=== PATIENT | male | born 1940 | race Caucasian/White ===

== ENCOUNTER 2018-10-24 01:24 | Inpatient (IN) | payer MEDICARE ==
[2018-10-24] MEDS ORDERED: NS 0.9% 1000 ML* 1,000 ML IV ONE (01:32)
[2018-10-24] MEDS ORDERED: Diltiazem IV* 5 MG/ML 5 ML VIAL (for loading dose/IV Push) (25 MG) IV SLOW PU ONE (01:33)
[2018-10-24] MEDS ORDERED: Diltiazem IV VIAL* 125 MG in NS 0.9% 100 ML* 100 ML IVPB ONE (01:33)
[2018-10-24] MEDS ORDERED: Apixaban* 5 MG TAB PO ONE (01:35)
--- NOTE | 2018-10-24 01:44 | ED ---
Complex/Multi-Sys Presentation - HPI Summary HPI Summary: Pt is a 78 y/o male brought in by EMS who presents to the ED c/o generalized weakness. He states that about 6 weeks ago he possibly pulled a muscle while working on a barn. Since then, hes had weakness of his legs. 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 He denies any CP , SOB, abdominal pain, blood stool, or black tarry stool. Pt is currently on Doxycycline for possible Lyme disease, although his test results came back negative. He denies any known hx of AFib. - History Of Current Complaint Time Seen by Provider: 10/24/18 01:25 Hx Obtained From: Patient Onset/Duration: Gradual Onset, Still Present Timing: Constant Aggravating Factor(s): Nothing Alleviating Factor(s): Nothing Associated Signs And Symptoms: Positive: Weakness. Negative: SOB, Chest Pain, Abdominal Pain - Allergies/Home Medications Allergies/Adverse Reactions: Allergies Allergy/AdvReac Type Severity Reaction Status Date / Time fexofenadine [From Makenzie] Allergy Altered Verified 10/24/18 01:34 Mental Status Penicillins Allergy Hives Verified 10/24/18 01:34 Home Medications: Home Medications Unobtainable 10/24/18 [History Confirmed 10/24/18] PMH/Surg Hx/FS Hx/Imm Hx Endocrine/Hematology History: Denies: Hx Diabetes Cardiovascular History: Denies: Hx Atrial Fibrillation Infectious Disease History: No Infectious Disease History: Denies: Traveled Outside the [place] in Last 30 Days - Family History Known Family History: Negative: Cardiac Disease, Diabetes - Social History Alcohol Use: None Hx Substance Use: No Substance Use Type: Reports: None Hx Tobacco Use: No Smoking Status (MU): Never Smoked Tobacco Review of Systems Positive: Other - Weakness Negative: Chest Pain Negative: Shortness Of Breath Negative: Abdominal Pain, Other - hematochezia, tarry stool Positive: Numbness - hands All Other Systems Reviewed And Are Negative: Yes Physical Exam - Summary Physical Exam Summary: Appearance: Well appearing, no pain distress Skin: warm, dry, reflects adequate perfusion Head/face: normal Eyes: EOMI, SHELBIE ENT: mucous membranes moist Neck: supple, non-tender Respiratory: CTA, breath sounds present Cardiovascular: tachycardic and irregular rhythm, pulses symmetrical, bilateral 2+ pitting edema of LE Abdomen: non-tender, soft Bowel Sounds: present Musculoskeletal: normal, strength/ROM intact Neuro: normal, sensory motor intact, A&Ox3 Triage Information Reviewed: Yes Vital Signs On Initial Exam: Initial Vitals Temp Pulse Resp BP Pulse Ox 98.4 F 100 18 161/95 95 10/24/18 01:25 10/24/18 01:25 10/24/18 01:25 10/24/18 01:25 10/24/18 01:25 Vital Signs Reviewed: Yes Diagnostics - Vital Signs Vital Signs Temp Pulse Resp BP Pulse Ox 10/24/18 01:25 98.4 F 100 18 161/95 95 - Laboratory Result Diagrams: 10/24/18 01:42 10/24/18 01:41 Lab Statement: Any lab studies that have been ordered have been reviewed, and results considered in the medical decision making process. - Radiology CXR Radiology Interpretation Completed By: ED Physician Summary of Radiographic Findings: No acute findings. Pending official radiology report. - EKG 01:42 Cardiac Rate: Other Rate - AFib 93 bpm EKG Rhythm: Atrial Fibrillation ST Segment: Normal Summary of EKG Findings: Nl axis, poor R wave progression Complex Multi-Symp Course/Dx Course Of Treatment: Nurse's notes reviewed. Patient is an otherwise healthy gentleman who is been having weakness and tingling in his extremities for about 6 weeks. They're concerned that potential he had Lyme disease. Lyme disease testing recently was negative. He is on doxycycline. He has not had any GI complaints. Today he was found to be in rapid atrial fibrillation with rates from 110-120. He was slowed with diltiazem placed on a drip to control rate. He was also given oral Eliquis and that he has likely been in this rhythm for some time. Discussed the case with the hospitalist who will admit. - Diagnoses Differential Diagnoses/HQI/PQRI: Metabolic Abnormality, Other - Palpitations, NM , pneumonia, sepsis Provider Diagnoses: Rapid atrial fibrillation, Generalized weakness - Physician Notifications Discussed Care Of Patient With: Sierra Shelton Time Discussed With Above Provider: 02:17 Instructed by Provider To: Admit As Inpatient - Critical Care Time Critical Care Time: 30-74 min - CCT is EXCLUSIVE of separately billable procedures. Discharge - Sign-Out/Discharge Documenting (check all that apply): Patient Departure - Admit - Discharge Plan Condition: Fair Disposition: ADMITTED TO [facility] Referrals: Walter Avalos, [Primary Care Provider] - - Billing Disposition and Condition Condition: FAIR Disposition: Admitted to [facility] - Attestation Statements Document Initiated by Christi: Yes Documenting Scribe: Mary Ann Valenzuela Provider For Whom Brentibe is Documenting (Include Credential): Daniel Beasley MD Scribe Attestation: Mary Ann Landeros, scribed for Daniel Beasley MD on 10/24/18 at 0254. Scribe Documentation Reviewed: Yes Provider Attestation: The documentation as recorded by the Mary Ann hernandez accurately reflects the service I personally performed and the decisions made by , Daniel Beasley MD Status of Scribe Document: Viewed
[2018-10-24 01:57] LABS: ABS Basophils 0.1 10^3/ul (0-0.2); ABS Eosinophils 0.2 10^3/ul (0-0.6); ABS Lymphocytes 1.6 10^3/ul (1.0-4.8); ABS Monocytes 0.7 10^3/ul (0-0.8); ABS Neutrophils 2.8 10^3/ul (1.5-7.7); ABS Nucleated RBC 0 10^3/ul; Eosinophil % 3.7 %; Hematocrit 43 % (42-52); Hemoglobin 14.5 g/dl (14.0-18.0); Lymphocyte % 29.6 %; Mean Corpuscular HGB Conc 33 g/dl (31-36); Mean Corpuscular Hemoglobin 30 pg (27-31); Mean Corpuscular Volume 90 fL (80-94); Nucleated Red Blood Cells % 0; Platelet Count 324 10^3/ul (150-450); Red Blood Count 4.85 10^6/ul (4.00-5.40); Red Cell Distribution Width 14 % (10.5-15); White Blood Count 5.3 10^3/ul (3.5-10.8)
[2018-10-24 02:01] LABS: INR 1.06 (0.77-1.02)
[2018-10-24 02:12] LABS: Albumin/Globulin Ratio 1.7 (1-3); BUN/Creatinine Ratio 33.7 (8-20); Calcium 9.6 mg/dL (8.6-10.3); EGFR Non-African American 86.5 (>60); Globulin 2.4 g/dL (2-4); Potassium 3.8 mmol/L (3.5-5.0); Total Bilirubin 0.4 mg/dL (0.2-1.0); Total Protein 6.4 g/dL (6.4-8.9)
[2018-10-24 02:28] LABS: TSH (Thyroid Stimulating Horm) 2.76 mcIU/mL (0.34-5.60)
[2018-10-24] MEDS: Diltiazem TAB* 30 MG PO SCH ×3 (04:23→16:46)
[2018-10-24 05:18] LABS: Urine Appearance Clear; Urine Bacteria Absent (Absent); Urine Bilirubin Negative (Negative); Urine Blood 1+ (Negative); Urine Color Yellow; Urine Glucose Negative (Negative); Urine Ketones Negative (Negative); Urine Nitrite Negative (Negative); Urine Protein Negative (Negative); Urine Red Blood Cell Trace(0-2/hpf) (Absent); Urine Specific Gravity 1.017 (1.010-1.030); Urine Urobilinogen Negative (Negative); Urine White Blood Cell Absent (Absent)
[2018-10-24] MEDS: NS 0.9% 1000 ML* 1,000 ML IV SCH (05:46)
[2018-10-24] MEDS ORDERED: Omeprazole CAP (NF) 20 MG CAP.DR PO SCH (06:00)
[2018-10-24] MEDS: Apixaban* 5 MG TAB PO SCH ×2 (10:37→20:47)
--- NOTE | 2018-10-24 10:38 | PN ---
Subjective Date of Service: 10/24/18 Interval History: Mr. Oconnor is feeling somewhat better today. He is still feeling generally weak , but thinks this is slightly improved. He has multiple complaints. C/o BUE weakness, not able to perform usual tasks such as barn work. Reports occasional shooting neck pain when he moves in certain ways. His PCP thought he had spinal stenosis. Feels as though this pain started when his BUE weakness started. Reports bilateral shoulder pain, particularly when laying on his shoulders. States he had a spine MRI at [place] 2 days ago and has not heard about the results. Has had RLS for 2-3 years, but feels like this has gotten worse in the last week, coinciding with increased BLE weakness. Has needed to use a walker in the last couple days which is not typical for him. Has concerns about his prostate. Has had an enlarged prostate for quite some time, and has PSA checked every 6 months with PCP. Reports frequency, but no dribbling, hesitancy, feelings of incomplete emptying. However, he does think his prostate is causing some constipation. Last BM was yesterday and normal. Denies saddle anesthesia and incontinence. Denies CP, SOB, N/V/D, dizziness. Family History: Unchanged from Admission Social History: Unchanged from Admission Past Medical History: Unchanged from Admission Objective Active Medications: Acetaminophen (Tylenol Tab*) 650 mg PO Q4H PRN FEVER/PAIN Apixaban (Eliquis*) 5 mg PO BID JN Diltiazem HCl (Cardizem Tab*) 30 mg PO Q6HR JN Docusate Sodium (Colace Cap*) 100 mg PO BID PRN CONSTIPATION Sodium Chloride (Ns 0.9% 1000 Ml*) 1,000 mls @ 75 mls/hr IV PER RATE JN Omeprazole (Prilosec Cap*) 20 mg PO DAILY@0600 [facility] Vital Signs - 8 hr 10/24/18 10/24/18 10/24/18 02:33 02:59 03:01 Temperature Pulse Rate 77 59 64 Respiratory 15 20 15 Rate Blood Pressure 121/82 114/82 (mmHg) O2 Sat by Pulse 92 94 94 Oximetry 10/24/18 10/24/18 10/24/18 03:29 04:00 04:01 Temperature Pulse Rate 66 Respiratory 20 20 21 Rate Blood Pressure 123/77 133/85 (mmHg) O2 Sat by Pulse Oximetry 10/24/18 10/24/18 10/24/18 04:29 04:33 05:32 Temperature 98.2 F 97.6 F Pulse Rate 69 65 65 Respiratory 14 18 18 Rate Blood Pressure 130/84 130/84 146/75 (mmHg) O2 Sat by Pulse 97 98 98 Oximetry Oxygen Devices in Use Now: None Appearance: Elderly male laying in bed in NAD Eyes: No Scleral Icterus Ears/Nose/Mouth/Throat: Mucous Membranes Moist Neck: NL Appearance and Movements; NL JVP, Trachea Midline Respiratory: Symmetrical Chest Expansion and Respiratory Effort, Clear to Auscultation Cardiovascular: NL Sounds; No Murmurs; No JVD, RRR Abdominal: NL Sounds; No Tenderness; No Distention Extremities: No Edema Skin: No Rash or Ulcers Neurological: Alert and Oriented x 3, NL Sensation, NL Muscle Strength and Tone - 5/5 in BUE and BLE Lines/Tubes/Other Access: Clean, Dry and Intact Peripheral IV Nutrition: Taking PO's Result Diagrams: 10/24/18 01:42 10/24/18 01:41 Assess/Plan/Problems-Billing Assessment: Mr. Oconnor is a 78 yo M with PMH of HTN, GERD, and BPH; who presented to the ED with c/o generalized weakness and was found to have new onset afib. - Patient Problems (1) Atrial fibrillation Code(s): I48.91 - UNSPECIFIED ATRIAL FIBRILLATION Comment: - New onset with some tachycardia upon arrival, but now rate controlled - Was in afib overnight, but converted to NSR around 0800 this morning - Appreciate Cardiology consult; he will f/u with Dr. Saenz at the [place] office at d/c - Echo shows EF 55-60%, mild to moderate LVH - Continue diltiazem, Eliquis (2) Generalized weakness Code(s): R53.1 - WEAKNESS Comment: - With BUE and BLE weakness, significantly worse in the last week, now requiring a walker - No obvious neurological deficits noted on exam - Suspect this may be in part d/t spinal stenosis - Had MRI at [place] on 10/23; awaiting records - Check MRI brain tomorrow to r/o subacute CVA (3) Hypertension Code(s): I10 - ESSENTIAL (PRIMARY) HYPERTENSION Comment: - Moderate control - Continue amlodipine (4) BPH (benign prostatic hyperplasia) Code(s): N40.0 - BENIGN PROSTATIC HYPERPLASIA WITHOUT LOWER URINRY TRACT SYMP Comment: - Continue tamsulosin (5) Restless legs syndrome (RLS) Comment: - Continue Requip (6) DVT prophylaxis Comment: - Eliquis (7) Full code status Code(s): Z78.9 - OTHER SPECIFIED HEALTH STATUS Comment: Status and Disposition: Observation pending MRI results and PT/OT evals. Anticipate d/c home when medically stable. Attending: Nataly Brioens
[2018-10-24] MEDS: amLODIPine TAB* 5 MG PO SCH (11:41)
[2018-10-24] MEDS: Tamsulosin CAP* 0.4 MG PO SCH (11:41)
[2018-10-24] MEDS: Acetaminophen TAB* 325 MG PO PRN ×2 (11:47→20:47)
--- NOTE | 2018-10-24 14:15 | HP ---
CC: Walter Avalos DO * HISTORY AND PHYSICAL: DATE OF ADMISSION: 10/24/18 PRIMARY CARE PROVIDER: Walter Avalos DO CHIEF COMPLAINT: Generalized weakness. HISTORY OF PRESENT ILLNESS: Mr. Oconnor is a 78-year-old male with a history of hypertension, gastroesophageal reflux disease, who has had problems with shuffling gait and generalized weakness for the past 4 months. The patient stated that in the past month he was either to see his doctor or in the emergency department at [facility] almost on a weekly basis. He was started on physical therapy. His doctor got a CT of his brain, which was unremarkable and an MRI of his cervical spine, which was done yesterday and has not been ready yet. The patient stated that despite all the studies, so far nothing had been found out apart from that the MRI once again the results are pending. He noted that he is so weak that today he had to walk with a walker. Due to that, he came in to our emergency department for evaluation. He was noted to be an atrial fibrillation/flutter with a heart rate in the low 100s. He was placed on Cardizem drip and his heart rate normalized in the 60s. He already feels a little bit stronger. Despite all the other symptoms that seemed mostly neurologic, the patient denies any chest pain or shortness of breath. He stated that he just feels generally weak. 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 The patient is going to be placed on observation with a diagnosis of atrial fibrillation and generalized weakness. PAST MEDICAL HISTORY: 1. Hypertension. 2. Gastroesophageal reflux disease. 3. Dyslipidemia. 4. Right shoulder surgery in 2012. 5. History of chronic sinus problems. 6. History of BPH. MEDICATIONS: Include: 1. Losartan at unknown dose. 2. Amlodipine at unknown dose. 3. Omeprazole 20 mg daily. 4. Ranitidine at unknown dose at night. 5. Fenofibrate at unknown dose. 6. Red Krill Oil supplement and stool softener. The patient unfortunately does not know the doses of his medications and his pharmacy is closed at 3 a.m. in the morning. 7. The patient also was prescribed doxycycline that he used for 3 days for questionable Lyme disease, but he was just told yesterday that his Lyme test was negative by his primary care provider. ALLERGIES: Includes FEXOFENADINE and PENICILLIN. FAMILY HISTORY: Mom at age of 62 secondary to intracranial hemorrhage. Father had a history of hypertension and at the age of 86 secondary to aspiration on his dentures. SOCIAL HISTORY: The patient denies any tobacco, alcohol or drug use. 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 His surrogate he names his son, Luis E Oconnor; his son' s phone number is [phone] or [phone]. REVIEW OF SYSTEMS: Please see history of present illness. In addition to above mentioned, the patient states that the patient's right leg had always been weaker after an accident that he had when he was 17 years old. The patient states that he already feels stronger now than before he came in to the hospital. All the remaining 12 systems were reviewed with the patient, and apart from the ones mentioned above in history of present illness, all the other ones were negative. PHYSICAL EXAMINATION GENERAL: The patient is a very pleasant 78-year-old male, who is in no acute distress. Awake, alert, and oriented x3. VITAL SIGNS: Blood pressure 130/85, heart rate of 64 and irregularly irregular , respiratory rate 20, oxygen saturation 92% on room air, temperature of 98.2. HEENT: Head atraumatic and normocephalic. Eyes: Pupils are equal and reactive to light and accommodation. Oropharynx is clear. Mucosa moist. NECK: Supple. No JVD. No bruits bilaterally. RESPIRATORY: Clear to auscultation bilaterally. CARDIOVASCULAR: Irregularly irregular rhythm. No murmurs. ABDOMEN: Soft, nontender. Bowel sounds present in all 4 quadrants EXTREMITIES: There is no edema. Pulses +2 bilaterally. There is no clubbing or cyanosis. NEUROLOGIC: On neuro evaluation, the patient appears to have slight flattening of left nasolabial fold, but no cranial nerve weakness was intact on evaluation. Speech is clear. Motor strength in the handgrip is decreased in the right hand when comparing with left minimally so. The patient is a right- hand dominant. There was no pronator drift and [id number] is not the symmetric bilaterally. 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 Evaluation of bilateral lower extremities, there is no weakness noted. Babinski's are negative bilaterally. The patient has no shuffling gait. PSYCHIATRIC EVALUATION: Oriented x3 with no evidence of anxiety or depression. DIAGNOSTIC STUDIES/LAB DATA: Laboratory data showed white blood cell count of 5.3, hemoglobin of 14.5, hematocrit of 43, and platelets of 324. Sodium of 137, potassium 8.8, chloride 107, carbon dioxide 23, BUN 29, creatinine of 0.86. Liver function tests are unremarkable with troponin of 0, TSH of 2.7. The patient's EKG showed AFib/flutter with a heart rate of 93 beats per minute. There was no other EKGs available for comparison. Portable chest x-ray reviewed by myself prior to the official radiologist's report, shows atelectasis at right lung base. ASSESSMENT AND PLAN: 1. New onset atrial fibrillation. It is possible that the patient has had atrial fibrillation/flutter for the past couple of months but it went undetected. He appears stronger once his heart rate is better controlled. The patient is going to be placed off Cardizem drip, since at 5 mg, the patient's heart rate is in the 60s. I will place him on Cardizem immediate release p.o. 30 mg every 6 hours. He is going to be placed gentle intravenous hydration. Transthoracic echocardiogram is going to be obtained in the morning, and we will ask top stop attacher to see the patient on the morning for consultation. The patient was already started on Eliquis for anticoagulation. He is not interested in Coumadin, but he would prefer to be on one of the novel anticoagulants that is covered by his insurance. I will ask social work coordinator to investigate further if Xarelto would be less bond than Eliquis for this patient. 2. In regards to the patient's neurologic problems of bilateral arm weakness, right more than left especially in the handgrip as well as shuffling gait, the patient already had an MRI of the cervical spine obtained in [facility] on 10/23/18, and I will try to obtain those results. Due to this, that he does have significant flattening of the left nasolabial fold, I will obtain an MRI of the brain. It is possible that he has suffered with cardioembolic stroke in the recent months. I will ask Physical Therapy to evaluate the patient for ambulation. 3. In regards to the patient's hypertension, he is on losartan and amlodipine at home. For the time being, those medications are going to be held. Cardizem is going to be started as mentioned above. 4. For DVT prophylaxis, the patient is going to be placed on Eliquis. 5. For the patient's gastroesophageal reflux disease, omeprazole is going to be continued. 6. The patient's code status is full and his surrogate is his son as mentioned above. TIME SPENT: Approximately 75 minutes was spent on admission of this patient and more than half that time was spent [id number] with the patient during the interview and physical exam. [id number]/[facility] #: [id number] MTDD
--- NOTE | 2018-10-24 14:27 | ECHO ---
Patient: WALTER MORRISSEY [facility] Rec#: [id number] : 1940 Date: 10/24/2018 Age: 78y Height: 168 cm / 66.1 in Weight: 69 kg / 152.1 lbs Sex: M BSA: 1.78 Room#: 3 Admit Date#: 10/24/2018 Type: Inpatient Referring: Sierra Shelton MD Reading: Terry Weinberg MD Cardiovascular Operating Room Nurse: Claire Gant,LETICIACS,RDMS CC: Walter Avalos DO Transthoracic Echocardiogram Indication: AFIB BP: 146/75 HR: 71 Rhythm: A-Fib Findings History: HTN, HLD, COPD Technical Comments: The study quality is good. Left Ventricle: The left ventricular chamber size is decreased. Mild to moderate concentric left ventricular hypertrophy is observed. Global left ventricular wall motion and contractility are within normal limits. There is normal left ventricular systolic function. The estimated ejection fraction is 55-60%. The assessment of diastolic function is non-diagnostic. Left Atrium: The left atrial chamber size is normal. Right Ventricle: The right ventricular cavity size is normal. Right Atrium: The right atrial cavity size is normal. Aortic Valve: The aortic valve is trileaflet. The aortic valve leaflets are mildly thickened. Systolic excursion of the aortic valve is normal. There is no evidence of aortic regurgitation. There is no evidence of aortic stenosis. Mitral Valve: The mitral valve leaflets appear normal. There is a trace of mitral regurgitation. Tricuspid Valve: The tricuspid valve leaflets are normal. There is trace tricuspid regurgitation. Unable to estimate the right ventricular systolic pressure. Pulmonic Valve: There is no evidence of pulmonic valve thickening. There is no evidence of pulmonic regurgitation. There is no pulmonic stenosis. Pericardium: There is no significant pericardial effusion. Aorta: The aortic root appears normal. There is no dilatation of the aortic arch. Pulmonary Artery: The main pulmonary artery appears normal. Venous: The inferior vena cava appears normal in size. There is a greater than 50% respiratory change in the inferior vena cava dimension. Conclusions The estimated ejection fraction is 55-60%. Global left ventricular wall motion and contractility are within normal limits. The left ventricular chamber size is decreased. Mild to moderate concentric left ventricular hypertrophy is observed. Normal bi-atrial sizes. Functionally benign heart valves. There is no prior echocardiogram available to compare with at this time. Measurements Name Value Normal Range RVIDd (AP) 2D 2.7 cm (0.9 - 2.6) RVDdMajor (2D) 3.1 cm (2.2 - 4.4) RAd ISD 4CH 5 cm (3.4 - 4.9) RA (A4C)W 3.9 cm (2.9 - 4.6) IVSd (2D) 1.5 cm (0.6 - 1) LVPWd (2D) 1.2 cm (0.6 - 1) LVIDd (2D) 3.5 cm (3.6 - 5.4) LVIDs (2D) 2.3 cm - LV FS (2D) 34 % (25 - 45) Aortic Annulus 2 cm (1.4 - 2.6) Ao root diameter (2D) 3.1 cm (2.1 - 3.5) Ascending Ao 3.3 cm (2.1 - 3.4) Aortic arch 2.8 cm (1.8 - 3.4) LA dimension (AP) 2D 4.1 cm (2.3 - 3.8) LAd ISD 4CH 4.9 cm (2.9 - 5.3) LA ISD 4CH W 3.5 cm (2.5 - 4.5) Name Value Normal Range LA ESV BP (A/L) index 30 ml/m2 - Name Value Normal Range MV E-wave Vmax 0.9 m/sec - MV deceleration time 161 msec - LV septal e' Vmax 0.11 m/sec - LV lateral e' Vmax 0.13 m/sec - LV E:e' septal ratio 8 ratio - LV E:e' lateral ratio 7 ratio - Name Value Normal Range AV Vmax 0.9 m/sec - AV peak gradient 3.2 mmHg - LVOT Vmax 0.5 m/sec - LVOT peak gradient 1 mmHg - NIURKA Vmax 0.6 m/sec - Name Value Normal Range RAP 3 mmHg - IVC diameter 1.5 cm - Name Value Normal Range PV Vmax 0.6 m/sec - PV peak gradient 1 mmHg -
[2018-10-24] MEDS: Omeprazole CAP (NF) 20 MG CAP.DR PO SCH (16:15)
--- NOTE | 2018-10-24 18:46 | CONS ---
CC: Dr. Xavier Saenz * CARDIOLOGY CONSULTATION: DATE OF CONSULT: 10/24/18 REASON FOR CARDIOLOGY CONSULTATION: Atrial fibrillation. HISTORY OF PRESENT ILLNESS: The patient has been noticing some palpitations since June of last year. He has more recently noted lower extremity edema as well as fatigue essentially since mid September of 2018. He has also been having numbness in his arms and hands as well as trouble lifting his legs. Yesterday, he was found to have atrial fibrillation in the emergency room on evaluation and was admitted to [facility]. He was admitted on a Cardizem drip, has been transitioned to Cardizem p.o. and has subsequently converted to normal sinus rhythm. He denies chest pain and states his breathing is good. PAST MEDICAL HISTORY: Significant for hypertension, GERD, dyslipidemia, right shoulder surgery in 2012, chronic sinus problems, history of BPH. OUTPATIENT MEDICATIONS: 1. Losartan unknown dose. 2. Norvasc, unknown dose. 3. Omeprazole 20 mg once a day. 4. Ranitidine, unknown dose. 5. Fenofibrate, unknown dose. 6. Red Krill Oil supplement. The patient here was begun was on: 1. Cardizem 30 mg p.o. q.6 hours. 2. Eliquis 5 mg p.o. b.i.d. ALLERGIES TO MEDICATIONS: FEXOFENADINE and PENICILLIN. He denies shrimp, seafood, or dye allergy. FAMILY HISTORY: His father had history of angina and AFib. Of note, the patient is accompanied by his son, sister, [id number], niece and other family members. There is a family history of cancer, stroke, and diabetes. SOCIAL HISTORY: He does not smoke cigarettes or abuse alcohol. No use of illicit drugs. He is and lives with his girlfriend who apparently herself has atrial fibrillation. 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 He does not do additional exercise. REVIEW OF SYSTEMS: He denies personal history of stroke, cancer, vomiting up blood, coughing up blood, bright red blood per rectum, bleeding stomach ulcers, cholelithiasis. He has a history of renal calculi. He denies asthma. 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 He denies pneumonia, tuberculosis , sleep apnea, home oxygen use, diabetes. He does have history of hypertension. He denies prior MS, congestive heart failure, cardiac surgery, cardiac murmurs. He has apparently been noted to have an irregular pulse in the past. He denies psychiatric illnesses, lupus, psoriasis, seizures, Parkinson's disease, myasthenia gravis, thyroid disorders, liver disorders, kidney disorders, claudication symptoms, pulmonary emboli, deep venous thrombosis, peripheral arterial disease. He has been having some peripheral edema recently. He does note GERD symptoms, managed with his GERD therapy. All other review of systems are negative x14 except as described above. PHYSICAL EXAM: Height 5 feet 6 inches, weight 151 pounds, temperature 98.2 degrees Fahrenheit, pulse 63, blood pressure 130/84 to 146/75. On general exam , he is a pleasant, vigorous appearing, elderly man, in no acute distress. HEENT shows the cranium is normocephalic and atraumatic. He has moist mucosal membranes. Neck veins are not distended. There are no carotid bruits. Visible skin warm and perfused. Affect appropriate. He appears oriented. No significant kyphoscoliosis on recumbent back exam. Lungs reveal occasional rhonchi. No wheezes. Cardiac Exam: S1, S2. Regular rate. No significant murmurs, rubs, or gallops. PMI is nondisplaced. Abdomen: Soft and nondistended, appears benign. Extremities: Currently without significant edema. Pulses appear grossly intact. DIAGNOSTIC STUDIES/LAB DATA: The patient completed a 12-lead EKG on 10/24/18 at 1:42 a.m., which showed atrial fibrillation at 93 beats per minute with questionable old anteroseptal MS. Telemetry currently shows that he is in normal sinus rhythm. White blood cell count 5.3, hematocrit 43, platelet count 324. INR of 1.06. Sodium 137, potassium 3.8, chloride 107, bicarbonate 23, BUN 29, creatinine 0.86. ALT 21. Troponin was 0 x3. BNP 32. TSH 2.76. IMPRESSION: Mr. Oconnor is a pleasant 78-year-old gentleman with a history of hypertension with some recent neurological symptoms as well as recent fatigue and edema at least for the past several weeks, perhaps longer found to have paroxysmal atrial fibrillation. He has resumed sinus rhythm. The patient's CHADS2-VASc score is 3. Cardiac lewis, he appears stable at this time.I am making the following recommendations with which the patient is in agreement. RECOMMENDATIONS: 1. Recommend changing his po Cardizem to Cardizem CD formulation 180 mg once a day and continue oral anticoagulation given CHADS2-VAScF score greater than 2. 2. The patient states he lives in [place], [place], and so on my discussion, he would be preferred to follow up in our [facility] office where he may be followed by my partner, Dr. Xavier Saenz. It is reassuring that the patient has normal LV function. 3. Keep potassium 4 or greater, magnesium 2 or greater. 4. Other management as per the hospitalist medicine service including regarding neurological symptoms. The case was discussed with Dr. Sierra Shelton and Ms. Torres, TRAIN ATTENDANT of . Dear Dr. Sierra Shelton and Ms. Torres, many thanks for asking me to participate in the cardiovascular consultative care of Mr. Oconnor. Please do not hesitate to contact me if you have any questions or concerns regarding the patient's cardiovascular consultative care. [id number]/[facility] #: [id number] GERI
[2018-10-24] MEDS: rOPINIRole TAB* 1 MG PO SCH (20:48)
[2018-10-24] MEDS ORDERED: RANITIDINE HCL 300 MG PO SCH (21:00)
[2018-10-25] MEDS: Diltiazem TAB* 30 MG PO SCH ×2 (00:37→05:23)
[2018-10-25] MEDS: NS 0.9% 1000 ML* 1,000 ML IV SCH ×2 (04:22→20:13)
[2018-10-25] MEDS: Acetaminophen TAB* 325 MG PO PRN ×2 (05:27→20:14)
[2018-10-25] MEDS: amLODIPine TAB* 5 MG PO SCH (07:59)
[2018-10-25] MEDS: Omeprazole CAP (NF) 20 MG CAP.DR PO SCH ×2 (07:59→16:49)
[2018-10-25] MEDS: Apixaban* 5 MG TAB PO SCH ×2 (07:59→20:14)
[2018-10-25] MEDS: Tamsulosin CAP* 0.4 MG PO SCH (08:00)
[2018-10-25] MEDS: Diltiazem CD CAP* 180 MG PO SCH (09:42)
[2018-10-25 10:49] LABS: BUN/Creatinine Ratio 23.5 (8-20); Calcium 9.3 mg/dL (8.6-10.3); EGFR Non-African American 92.6 (>60); Magnesium 1.9 mg/dL (1.9-2.7); Potassium 3.8 mmol/L (3.5-5.0)
--- NOTE | 2018-10-25 15:56 | PN ---
Subjective Date of Service: 10/25/18 Interval History: Mr. Oconnor is not feeling any better today. He reports working with PT this morning and having a difficult time ambulating. This is distressing to him as he was quite active until approx 1-2 weeks ago. Weakness is unchanged from yesterday. Family member at the bedside. She reports that she notes a slight left sided facial droop which has been present for at least one week. This coincided with his other symptoms. He denies CP, SOB, N/V/D, dizziness. Family History: Unchanged from Admission Social History: Unchanged from Admission Past Medical History: Unchanged from Admission Objective Active Medications: Acetaminophen (Tylenol Tab*) 650 mg PO Q4H PRN FEVER/PAIN Amlodipine Besylate (Norvasc Tab*) 5 mg PO DAILY JN Apixaban (Eliquis*) 5 mg PO BID JN Diltiazem HCl (Cardizem Cd Cap*) 180 mg PO DAILY JN Docusate Sodium (Colace Cap*) 100 mg PO BID PRN CONSTIPATION Famotidine (Pepcid Tab*) 40 mg PO BEDTIME JN Sodium Chloride (Ns 0.9% 1000 Ml*) 1,000 mls @ 75 mls/hr IV PER RATE [place] Omeprazole (Prilosec Cap*) 20 mg PO BID AC JN Ropinirole HCl (Requip Tab*) 1 mg PO BEDTIME JN Tamsulosin HCl (Flomax Cap*) 0.8 mg PO DAILY JN Vital Signs - 8 hr 10/25/18 10/25/18 12:31 15:25 Temperature 98.5 F 97.7 F Pulse Rate 65 79 Respiratory 16 16 Rate Blood Pressure 135/73 129/88 (mmHg) O2 Sat by Pulse 95 97 Oximetry Oxygen Devices in Use Now: None Appearance: Elderly male sitting in chair in NAD Eyes: No Scleral Icterus Ears/Nose/Mouth/Throat: Mucous Membranes Moist Neck: NL Appearance and Movements; NL JVP, Trachea Midline Respiratory: Symmetrical Chest Expansion and Respiratory Effort, Clear to Auscultation Cardiovascular: NL Sounds; No Murmurs; No JVD, RRR Abdominal: NL Sounds; No Tenderness; No Distention Extremities: No Edema Skin: No Rash or Ulcers Neurological: Alert and Oriented x 3, NL Muscle Strength and Tone, - - Questionable left-sided facial droop Lines/Tubes/Other Access: Clean, Dry and Intact Peripheral IV Nutrition: Taking PO's Result Diagrams: 10/24/18 01:42 10/25/18 10:03 Assess/Plan/Problems-Billing Assessment: Mr. Oconnor is a 78 yo M with PMH of HTN, GERD, and BPH; who presented to the ED with c/o generalized weakness and was found to have new onset afib. - Patient Problems (1) Atrial fibrillation Code(s): I48.91 - UNSPECIFIED ATRIAL FIBRILLATION Comment: - New onset with some tachycardia upon arrival, but now rate controlled - Self-converted to NSR yesterday - Appreciate Cardiology consult; he will f/u with Dr. Saenz at the [place] office at d/c - Echo shows EF 55-60%, mild to moderate LVH - Continue diltiazem, Eliquis (2) Generalized weakness Code(s): R53.1 - WEAKNESS Comment: - With BUE and BLE weakness, significantly worse in the last week, now requiring a walker - No obvious neurological deficits noted on exam, but there is a questionable left-sided facial droop which appears unchanged per family - Differentials include CVA and cord compression/nerve impingement, but there is no evidence of cauda equina - Had lumbar spine MRI at [place] on 10/23 which showed L5-S1 right-sided disc protrusion and mild to moderate DJD - Pending MRI brain to r/o subacute CVA and cervical spine MRI d/t BUE weakness - Spoke with both Neurosurgery and Neurology; plan will be to consult either or both depending on MRI results (3) Hypertension Code(s): I10 - ESSENTIAL (PRIMARY) HYPERTENSION Comment: - Moderate control, 130-160s - Continue amlodipine (4) BPH (benign prostatic hyperplasia) Code(s): N40.0 - BENIGN PROSTATIC HYPERPLASIA WITHOUT LOWER URINRY TRACT SYMP Comment: - Continue tamsulosin (5) Restless legs syndrome (RLS) Comment: - Continue Requip (6) DVT prophylaxis Comment: - Eliquis (7) Full code status Code(s): Z78.9 - OTHER SPECIFIED HEALTH STATUS Comment: Status and Disposition: Observation pending MRI results. Anticipate d/c home when medically stable. Attending: Kayla Cain
[2018-10-25] MEDS: rOPINIRole TAB* 1 MG PO SCH ×2 (18:37→20:20)
[2018-10-25] MEDS: Famotidine TAB* 20 MG PO SCH (20:14)
[2018-10-26] MEDS: Benzocaine/Menthol LOZ* 1 LOZENGE PO PRN ×2 (03:55→20:17)
[2018-10-26] MEDS: Potassium Chlor TAB* 10 MEQ TAB.ER PO SCH (08:01)
[2018-10-26] MEDS: Apixaban* 5 MG TAB PO SCH ×2 (08:01→20:16)
[2018-10-26] MEDS: Omeprazole CAP (NF) 20 MG CAP.DR PO SCH ×2 (08:01→16:43)
[2018-10-26] MEDS: Magnesium Oxide TAB* 400 MG PO SCH (08:02)
[2018-10-26] MEDS: Diltiazem CD CAP* 180 MG PO SCH (08:02)
[2018-10-26] MEDS: Tamsulosin CAP* 0.4 MG PO SCH (08:02)
[2018-10-26] MEDS: amLODIPine TAB* 5 MG PO SCH (08:02)
[2018-10-26] MEDS: NS 0.9% 1000 ML* 1,000 ML IV SCH (08:06)
[2018-10-26] MEDS: Acetaminophen TAB* 325 MG PO PRN ×2 (08:07→17:00)
--- NOTE | 2018-10-26 08:41 | CONSULT ---
Consult Consult: Neurosurgery Consult Date of Admission: 10/24/18 Date of Consult: 10/26/18 Reason for Consult: Cervical stenosis Referring Provider: Deepika Torres NP PCP: Dr. Avalos HPI:This is a 78 year old male with past medical history significant for HTN, GERD and Atrial fibrillation diagnosed this admission, who presented to [facility] with complaint of bilateral lower extremity swelling and burning sensation in addition to generalized, progressive upper and lower extremity weakness. He is able to provide detailed history. 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 He developed upper back, neck and shoulders soreness with this activity and frequently needed to take breaks. He noticed approximately 6 weeks ago that he began to develop bilateral hand and jewelry enameler strength weakness in addition to generalized lower extremity weakness with ambulation. He states that he was unable to hold objects and felt like there was oil on his hands because he kept dropping things. He was unable to make a fist and reports bilateral hand numbness over the past 6 weeks, right equal to left. He describes first noticing that his feet were dragging when he would try to walk quickly but if he focused on his gait, he was able to prevent the shuffling. The lower extremity weakness progressed. He presented to his PCP who obtained cervical spine xrays and referred him for physical therapy. He participated in PT twice. The first time, he needed a cane to ambulate, the second time he required a walker, and within the next couple of days he was unable to ambulate well even with assistance of a walker. Occasionally he experiences an electric shock sensation originating in the neck with neck movements. On , he had guests over and by the time they went home around midnight, he realized his lower extremities at the feet and ankles were swelling and burning. He decided to present to [facility] for evaluation. He was diagnosed with atrial fibrillation and was admitted for further work up of the weakness. He denies pain in the upper and lower extremities. MRI of the cervical spine was obtained on 10/25/17 and was reviewed today. Denies bowel and bladder dysfunction. Denies recent illness, trauma, falls and infection. Denies vision changes, blurred vision, changes in speech, difficulty swallowing, dizziness, nausea, chest pain, difficulty breathing and headache. Past Medical History: 1. HTN 2. GERD 3. Atrial fibrillation 4. Dyslipidemia 5. BPH 6. Restless leg syndrome Past Surgical History: 1. Right shoulder surgery 2013 [place] Medications: Acetaminophen (Tylenol Tab*) 650 mg PO Q4H PRN PRN Reason: FEVER/PAIN Last Admin: 10/26/18 08:07 Dose: 650 mg Amlodipine Besylate (Norvasc Tab*) 5 mg PO DAILY [facility] Last Admin: 10/26/18 08:02 Dose: 5 mg Apixaban (Eliquis*) 5 mg PO BID [facility] Last Admin: 10/26/18 08:01 Dose: 5 mg Diltiazem HCl (Cardizem Cd Cap*) 180 mg PO DAILY [facility] Last Admin: 10/26/18 08:02 Dose: 180 mg Docusate Sodium (Colace Cap*) 100 mg PO BID PRN PRN Reason: CONSTIPATION Famotidine (Pepcid Tab*) 40 mg PO BEDTIME [facility] Last Admin: 10/25/18 20:14 Dose: 40 mg Sodium Chloride (Ns 0.9% 1000 Ml*) 1,000 mls @ 75 mls/hr IV PER RATE [facility] Last Admin: 10/26/18 08:06 Dose: 75 mls/hr Magnesium Oxide (Magox 400 Tab*) 400 mg PO DAILY [facility] Last Admin: 10/26/18 08:02 Dose: 400 mg Omeprazole (Prilosec Cap*) 20 mg PO BID AC [facility] Last Admin: 10/26/18 08:01 Dose: 20 mg Potassium Chloride (Klor Con Er Tab*) 10 meq PO DAILY [facility] Last Admin: 10/26/18 08:01 Dose: 10 meq Ropinirole HCl (Requip Tab*) 1 mg PO BEDTIME [facility] Last Admin: 10/25/18 20:20 Dose: Not Given Tamsulosin HCl (Flomax Cap*) 0.8 mg PO DAILY [facility] Last Admin: 10/26/18 08:02 Dose: 0.8 mg Throat Lozenges (Chloraseptic Karolina*) 1 karolina PO Q6H PRN PRN Reason: SORE THROAT Last Admin: 10/26/18 03:55 Dose: 1 karolina Allergies: fexofenadine [From Makenzie] Allergy (Verified 10/24/18 01:34) Altered Mental Status Penicillins Allergy (Verified 10/24/18 01:34) Hives Social History: This patient lives at home with his significant other. 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 Denies tobacco and alcohol use. ROS: Full ROS complete, pertinent findings stated in HPI and all others negative. Physical Exam: Vital Signs: Temp Pulse Resp BP Pulse Ox 97.2 F 69 22 147/90 100 10/26/18 07:33 10/26/18 07:33 10/26/18 07:33 10/26/18 07:33 10/26/18 07:33 General: Elderly male appears well, alert and sitting up in bed, NAD. HEENT: Head is normocephalic and atraumatic. PERRL, EOMI, sclerae anicteric. Moist mucus membranes. Gross hearing intact although slightly decreased. Neck: Supple and symmetric, nontender to palpation. CV: Radial and pedal pulses 2+ and equal, regular. Lungs: Breathing is nonlabored and lungs are clear. Abdomen: The abdomen is soft, nontender. NABS Neuro: Speech is clear. Answers questions appropriately. Sensation intact throughout, slightly diminished in left compared to right. Strength 5/5 throughout, mild jewelry enameler strength weakness and fine motor dexterity. DTR biceps, brachioradialis, triceps, patellar and achilles 3+ bilaterally. Hoffmans positive bilaterally. No ankle clonus. SLR negative bilaterally. Coordination intact. CN II-XII intact. No tremor. Extremities: Arthritis bilateral hands, bilateral lower extremities without edema. Imagin. MRI cervical spine on 10/25/17 shows multilevel degenerative disc disease and spondylosis, severe central canal stenosis C3-4 with cord compression and cord signal change. Assessment and Plan: This patient presents to [facility] for evaluation of generalized, progressive upper and lower extremity weakness, gait instability and lower extremity swelling. He was found to have atrial fibrillation and was started on medication for this. MRI of the cervical spine was obtained showing degenerative changes and severe stenosis C3-4 with cord compression and signal change. 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 MRI results were discussed with the patient and treatment options including the potential benefit of surgery were briefly discussed. He is interested in further discussion of surgical intervention with Dr. Pickett and his family members. This case was reviewed with Dr. Pickett and Precious Anna NP. Additional imaging with flexion/extension xrays and CT cervical spine will be obtained for further evaluation. The patient will need to be cleared for cervical spine surgery by hospital medicine. Plan for surgery next week, Dr. Pickett will formulate surgical plan with the patient and his family.
--- NOTE | 2018-10-26 17:48 | PN ---
Subjective Date of Service: 10/26/18 Interval History: Patient seen and examined. States he feels like his left UE weakness is the same as well as left light lip droop. Denies chest pain, no palpitations, no SOB , no urinary complaints. Family History: Unchanged from Admission Social History: Unchanged from Admission Past Medical History: Unchanged from Admission Objective Active Medications: Acetaminophen (Tylenol Tab*) 650 mg PO Q4H PRN PRN Reason: FEVER/PAIN Last Admin: 10/26/18 17:00 Dose: 650 mg Amlodipine Besylate (Norvasc Tab*) 5 mg PO DAILY [facility] Last Admin: 10/26/18 08:02 Dose: 5 mg Apixaban (Eliquis*) 5 mg PO BID [facility] Last Admin: 10/26/18 08:01 Dose: 5 mg Diltiazem HCl (Cardizem Cd Cap*) 180 mg PO DAILY [facility] Last Admin: 10/26/18 08:02 Dose: 180 mg Docusate Sodium (Colace Cap*) 100 mg PO BID PRN PRN Reason: CONSTIPATION Famotidine (Pepcid Tab*) 40 mg PO BEDTIME [facility] Last Admin: 10/25/18 20:14 Dose: 40 mg Sodium Chloride (Ns 0.9% 1000 Ml*) 1,000 mls @ 75 mls/hr IV PER RATE [facility] Last Admin: 10/26/18 08:06 Dose: 75 mls/hr Magnesium Oxide (Magox 400 Tab*) 400 mg PO DAILY [facility] Last Admin: 10/26/18 08:02 Dose: 400 mg Omeprazole (Prilosec Cap*) 20 mg PO BID AC [facility] Last Admin: 10/26/18 16:43 Dose: 20 mg Potassium Chloride (Klor Con Er Tab*) 10 meq PO DAILY [facility] Last Admin: 10/26/18 08:01 Dose: 10 meq Ropinirole HCl (Requip Tab*) 1 mg PO BEDTIME [facility] Last Admin: 10/25/18 20:20 Dose: Not Given Tamsulosin HCl (Flomax Cap*) 0.8 mg PO DAILY [facility] Last Admin: 10/26/18 08:02 Dose: 0.8 mg Throat Lozenges (Chloraseptic Karolina*) 1 karolina PO Q6H PRN PRN Reason: SORE THROAT Last Admin: 10/26/18 03:55 Dose: 1 karolina Vital Signs - 8 hr 10/26/18 10/26/18 11:13 15:46 Temperature 98.4 F 97.8 F Pulse Rate 77 72 Respiratory 18 16 Rate Blood Pressure 156/66 133/71 (mmHg) O2 Sat by Pulse 95 96 Oximetry Oxygen Devices in Use Now: None Appearance: alert, NAD Eyes: No Scleral Icterus, PERRLA Ears/Nose/Mouth/Throat: Mucous Membranes Moist, - - slight droop left upper lip Neck: NL Appearance and Movements; NL JVP, Trachea Midline Respiratory: Symmetrical Chest Expansion and Respiratory Effort, Clear to Auscultation Cardiovascular: NL Sounds; No Murmurs; No JVD, RRR, No Edema Abdominal: NL Sounds; No Tenderness; No Distention Extremities: No Edema, No Clubbing, Cyanosis Skin: No Rash or Ulcers, No Nodules or Sclerosis Neurological: Alert and Oriented x 3, - - decreased sensation LUE, 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 COMPARISON: None TECHNIQUE: Coronal T2, sagittal T1, inversion recovery, T2, and axial T1, T2, and gradient echo images were acquired. FINDINGS: The sella and craniocervical junction appear unremarkable. On T2-weighted imaging there is mildly increased signal of the spinal cord at C3 /C4 corresponding to the patient's most severe focus of high-grade central canal stenosis. The cervical vertebrae are normally aligned. The atlantodental interval is normal. Axial view images: Less otherwise specified below there is no significant central canal stenosis or neural foraminal stenosis. C2-C3: There is no significant central canal or neural foraminal stenoses. C3-C4: There is broad-based disc protrusion and thickening of the ligamentum flavum combining with facet arthropathy and uncovertebral hypertrophy to cause high- grade stenosis and severe bilateral neural foraminal stenosis. C4-C5: Mild broad-based disc protrusion abuts the ventral thecal sac and combines with facet arthropathy to cause mild bilateral neural foraminal stenosis. C5-C6: Broad-based disc protrusion eccentric towards the patient's right abuts the ventral spinal cord and combines with facet arthropathy and uncovertebral hypertrophy to cause moderate right and mild left neural foraminal stenosis. C6-C7: Broad-based disc protrusion abutting the ventral thecal sac combines with facet arthropathy and uncovertebral hypertrophy to cause mild bilateral neural foraminal stenosis. C7-T1: Broad-based disc protrusion eccentric towards the left of midline slightly distorts the ventral thecal sac and combines with facet arthropathy and uncovertebral hypertrophy to cause mild to moderate left neural foraminal stenosis. IMPRESSION:Multilevel degenerative disc disease causing various degrees of central canal or neural foraminal stenoses. The most severe level is C3/C4 where there is high -grade stenosis with subsequent increased fluid signal of the spinal cord. These findings were reported over the telephone to Deepika Torres NP at 1646 hours on October 25, 2018. Patient Name: GERTRUDE MORRISSEY Medical Record#: [id number] Ordering Physician: Sierra Shelton MD Acct.#: [id number] : 1940 Age: 78 Sex: M Location: [address] [place] [address] MEDICAL/TELEMETRY Exam Date: 10/25/18 0800 ADM Status: ADM Clarita Order Information: MRI BRAIN W/O Accession Number: [id number] CPT: 12358 HISTORY: Bilateral upper extremity weakness, intermittent neck pain, generalized weakness and a shuffling gait x4 months COMPARISONS: None TECHNIQUE: The following sequences were obtained of the head: Sagittal T1- weighted images, axial T2-weighted images, axial FLAIR images, axial susceptibility weighted images, axial T1-weighted images. Additionally, axial diffusion-weighted images were obtained with calculated apparent diffusion coefficients.. FINDINGS: HEMORRHAGE/INFARCT: There is no hemorrhage or acute infarct. MASSES/SHIFT: There is no mass or shift. EXTRA-AXIAL SPACES/MENINGES: There are no extra-axial fluid collections. SULCI AND VENTRICLES: The sulci and ventricles are normal in size and position for the patient's stated age. CEREBRUM: On T2 FLAIR images there is scattered periventricular and subcortical white matter bright signal that is fairly symmetrically dispersed in the bilateral hemispheres. There are no corresponding lesion seen on the T1-weighted images or on diffusion -weighted imaging. There is no large mass, mass effect or midline shift. BRAINSTEM: There are no focal parenchymal abnormalities. CEREBELLUM: There are no focal parenchymal abnormalities. The cerebellar tonsils are normal in size and position. SELLA: The sella is normal. PINEAL: The pineal region is clear. CP ANGLE/TEMPORAL BONES: The labyrinthine structures are grossly normal. VESSELS: Normal flow-voids are noted within the visualized vertebral vasculature. DIFFUSION ABNORMALITIES: There are no diffusion abnormalities. PARANASAL SINUSES/MASTOIDS: The paranasal sinuses are clear. ORBITS: The orbits are unremarkable. BONES AND SOFT TISSUE: No bone or soft tissue abnormalities are noted. IMPRESSION: SCATTERED T2 BRIGHT PERIVENTRICULAR AND SUBCORTICAL WHITE MATTER FOCI WITH THE LARGEST FOCUS OF UPTAKE AT THE LEFT PARIETAL LOBE MEASURING 1.3 CM. THERE IS NO CORRESPONDING BRIGHT SIGNAL ON DIFFUSION-WEIGHTED IMAGING TO INDICATE ACUTE FOCAL OR TERRITORIAL INFARCTION. MOST COMMONLY THIS APPEARANCE IS THE CONSEQUENCE OF CHRONIC MICROVASCULAR DISEASE. IF THERE IS CLINICAL SUSPICION FOR ACUTE DEMYELINATING DISEASE THEN FURTHER CHARACTERIZATION CAN BE MADE WITH CONTRAST-ENHANCED MRI OF THE BRAIN. <Electronically signed by Dylan Thomas MD in OV> 10/25/18 1641 This report is only to be considered final once signed by the Provider(s) as displayed in the "<Electronically Signed by >" field (s). Absence of a signature indicates the report is in a draft status and still needs to be finalized. In the event this document was created by someone other than the signing Provider, the individual initiating the document will be listed in the "Entered by:" or "Dictated by:" [email or web address]. 1 of 2 Assess/Plan/Problems-Billing Assessment: This is a 78 yo M with PMH of HTN, GERD, and BPH; who presented to the ED with c /o generalized weakness and was found to have new onset afib. - Patient Problems (1) Cervical myelopathy Code(s): G95.9 - DISEASE OF SPINAL CORD, UNSPECIFIED SNOMED Code(s): 678358720 Comment: - Weakness likely 2/2 high grade cervical stenosis as noted in imaging above - Neurosurgery consulting, plan is likely surgical intervention eituesday or Tuesday if he is medically cleared, patient would need to remain inpatient given severity of myelopathy - Appreciate any further recs from neurosurgery, no indication for steroids at this time - Concern that changes on MRI may represent demyelinating process, does not appear to have had acute infarct. Will consult neurology to evaluate MRI in anticipation of optimazing patient for surgery (2) Atrial fibrillation Code(s): I48.91 - UNSPECIFIED ATRIAL FIBRILLATION SNOMED Code(s): 79073425 Comment: - New onset with some tachycardia upon arrival, but now rate controlled with spontaneous conversion to NSR 10/24/18 - Appreciate Cardiology consult; he will f/u with Dr. Saenz at the [place] office at d/c - Echo shows EF 55-60%, mild to moderate LVH - Continue diltiazem, Eliquis - Will hold eliquis starting tomorrow in antcipation of surgery (3) BPH (benign prostatic hyperplasia) Code(s): N40.0 - BENIGN PROSTATIC HYPERPLASIA WITHOUT LOWER URINRY TRACT SYMP SNOMED Code(s): 856618679 Comment: - Continue tamsulosin (4) Hypertension Current Visit: Yes Status: Acute Code(s): I10 - ESSENTIAL (PRIMARY) HYPERTENSION SNOMED Code(s): 46754491 Comment: - Moderate control, 130-160s - Continue amlodipine (5) Restless legs syndrome (RLS) Comment: - Continue Requip 2 hours before bedtime (6) DVT prophylaxis Code(s): KRJ3941 - SNOMED Code(s): 710096549 Comment: - Currenlty on Eliquis, will hold and change to HSQ tomorrow (7) Full code status Code(s): Z78.9 - OTHER SPECIFIED HEALTH STATUS SNOMED Code(s): 582984229 Comment: Status and Disposition: Inpatient pending surgical recommendations.
[2018-10-26] MEDS: rOPINIRole TAB* 1 MG PO SCH ×2 (18:28→20:50)
[2018-10-26] MEDS: Famotidine TAB* 20 MG PO SCH (20:16)
[2018-10-26] MEDS: traMADol TAB* 50 MG PO PRN (20:48)
[2018-10-26] MEDS: Melatonin 3 MG TAB PO PRN (20:48)
[2018-10-27] MEDS: NS 0.9% 1000 ML* 1,000 ML IV SCH ×2 (01:15→23:24)
[2018-10-27] MEDS: Magnesium Oxide TAB* 400 MG PO SCH (08:36)
[2018-10-27] MEDS: Omeprazole CAP (NF) 20 MG CAP.DR PO SCH ×2 (08:36→17:03)
[2018-10-27] MEDS: Heparin VIAL(*) 5000 UNITS/ML VIAL (FIVE THOUSAND) SUBCUT SCH ×3 (08:36→21:40)
[2018-10-27] MEDS: Diltiazem CD CAP* 180 MG PO SCH (08:36)
[2018-10-27] MEDS: Potassium Chlor TAB* 10 MEQ TAB.ER PO SCH (08:36)
[2018-10-27] MEDS: Tamsulosin CAP* 0.4 MG PO SCH (08:36)
[2018-10-27] MEDS: amLODIPine TAB* 5 MG PO SCH (08:36)
--- NOTE | 2018-10-27 17:36 | PN ---
Subjective Date of Service: 10/27/18 Interval History: Patient seen and examined. States he is feeling well, his upper extremity weakness is unchanged and his RLS is "acting up" primarily on the RLE. Otherwise denies SOB, no chest pain, no n/v, no fevers or chills. Family History: Unchanged from Admission Social History: Unchanged from Admission Past Medical History: Unchanged from Admission Objective Active Medications: Acetaminophen (Tylenol Tab*) 650 mg PO Q4H PRN PRN Reason: FEVER/PAIN Last Admin: 10/26/18 17:00 Dose: 650 mg Amlodipine Besylate (Norvasc Tab*) 5 mg PO DAILY [facility] Last Admin: 10/27/18 08:36 Dose: 5 mg Diltiazem HCl (Cardizem Cd Cap*) 180 mg PO DAILY [facility] Last Admin: 10/27/18 08:36 Dose: 180 mg Docusate Sodium (Colace Cap*) 100 mg PO BID PRN PRN Reason: CONSTIPATION Famotidine (Pepcid Tab*) 40 mg PO BEDTIME [facility] Last Admin: 10/26/18 20:16 Dose: 40 mg Heparin Sodium (Porcine) (Heparin Vial(*)) 5,000 units SUBCUT Q8HR [facility] Last Admin: 10/27/18 13:32 Dose: 5,000 units Sodium Chloride (Ns 0.9% 1000 Ml*) 1,000 mls @ 75 mls/hr IV PER RATE [facility] Last Admin: 10/27/18 01:15 Dose: 75 mls/hr Magnesium Oxide (Magox 400 Tab*) 400 mg PO DAILY [facility] Last Admin: 10/27/18 08:36 Dose: 400 mg Melatonin (Melatonin) 3 mg PO BEDTIME PRN; Protocol PRN Reason: SLEEP Last Admin: 10/26/18 20:48 Dose: 3 mg Omeprazole (Prilosec Cap*) 20 mg PO BID AC [facility] Last Admin: 10/27/18 17:03 Dose: 20 mg Potassium Chloride (Klor Con Er Tab*) 10 meq PO DAILY [facility] Last Admin: 10/27/18 08:36 Dose: 10 meq Ropinirole HCl (Requip Tab*) 1 mg PO BEDTIME [facility] Last Admin: 10/26/18 20:50 Dose: Not Given Tamsulosin HCl (Flomax Cap*) 0.8 mg PO DAILY [facility] Last Admin: 10/27/18 08:36 Dose: 0.8 mg Throat Lozenges (Chloraseptic Karolina*) 1 karolina PO Q6H PRN PRN Reason: SORE THROAT Last Admin: 10/26/18 20:17 Dose: 1 karolina Tramadol HCl (Ultram*) 50 mg PO Q8H PRN PRN Reason: PAIN Last Admin: 10/26/18 20:48 Dose: 50 mg Vital Signs - 8 hr 10/27/18 10/27/18 11:12 15:33 Temperature 98.6 F 97.0 F Pulse Rate 80 65 Respiratory 16 18 Rate Blood Pressure 127/61 143/68 (mmHg) O2 Sat by Pulse 96 97 Oximetry Oxygen Devices in Use Now: None Appearance: alert, NAD Eyes: No Scleral Icterus, PERRLA Ears/Nose/Mouth/Throat: NL Teeth, Lips, Gums, Mucous Membranes Moist Neck: NL Appearance and Movements; NL JVP, Trachea Midline Respiratory: Symmetrical Chest Expansion and Respiratory Effort, Clear to Auscultation Cardiovascular: NL Sounds; No Murmurs; No JVD, RRR, No Edema Abdominal: NL Sounds; No Tenderness; No Distention Extremities: No Edema, No Clubbing, Cyanosis Skin: No Rash or Ulcers, No Nodules or Sclerosis Neurological: Alert and Oriented x 3, NL Gait, - - diminished sensation bilaterally with L>R, tremors to RLE periodically Nutrition: Taking PO's Result Diagrams: 10/24/18 01:42 10/25/18 10:03 Diagnostic Imaging: Patient Name: GERTRUDE MORRISSEY Medical Record#: [id number] Ordering Physician: Deepika Torres NP Acct.#: [id number] : 1940 Age: 78 Sex: M Location: [address] [place] [address]/TELEMETRY Exam Date: 10/25/18939 ADM Status: ADM Clarita Order Information: MRI CERVICAL SPINE WO Accession Number: [id number] CPT: 86975 INDICATION: Upper extremity weakness with intermittent neck pain. COMPARISON: None TECHNIQUE: Coronal T2, sagittal T1, inversion recovery, T2, and axial T1, T2, and gradient echo images were acquired. FINDINGS: The sella and craniocervical junction appear unremarkable. On T2-weighted imaging there is mildly increased signal of the spinal cord at C3 /C4 corresponding to the patient's most severe focus of high-grade central canal stenosis. The cervical vertebrae are normally aligned. The atlantodental interval is normal. Axial view images: Less otherwise specified below there is no significant central canal stenosis or neural foraminal stenosis. C2-C3: There is no significant central canal or neural foraminal stenoses. C3-C4: There is broad-based disc protrusion and thickening of the ligamentum flavum combining with facet arthropathy and uncovertebral hypertrophy to cause high- grade stenosis and severe bilateral neural foraminal stenosis. C4-C5: Mild broad-based disc protrusion abuts the ventral thecal sac and combines with facet arthropathy to cause mild bilateral neural foraminal stenosis. C5-C6: Broad-based disc protrusion eccentric towards the patient's right abuts the ventral spinal cord and combines with facet arthropathy and uncovertebral hypertrophy to cause moderate right and mild left neural foraminal stenosis. C6-C7: Broad-based disc protrusion abutting the ventral thecal sac combines with facet arthropathy and uncovertebral hypertrophy to cause mild bilateral neural foraminal stenosis. C7-T1: Broad-based disc protrusion eccentric towards the left of midline slightly distorts the ventral thecal sac and combines with facet arthropathy and uncovertebral hypertrophy to cause mild to moderate left neural foraminal stenosis. IMPRESSION:Multilevel degenerative disc disease causing various degrees of central canal or neural foraminal stenoses. The most severe level is C3/C4 where there is high -grade stenosis with subsequent increased fluid signal of the spinal cord. These findings were reported over the telephone to Deepika Torres NP at 1646 hours on October 25, 2018. Patient Name: GERTRUDE MORRISSEY Medical Record#: [id number] Ordering Physician: Sierra Shelton MD Acct.#: [id number] : 1940 Age: 78 Sex: M Location: [address] [place] [address]/TELEMETRY Exam Date: 10/25/18 08 ADM Status: ADM Clarita Order Information: MRI BRAIN W/O Accession Number: [id number] CPT: 59520 HISTORY: Bilateral upper extremity weakness, intermittent neck pain, generalized weakness and a shuffling gait x4 months COMPARISONS: None TECHNIQUE: The following sequences were obtained of the head: Sagittal T1- weighted images, axial T2-weighted images, axial FLAIR images, axial susceptibility weighted images, axial T1-weighted images. Additionally, axial diffusion-weighted images were obtained with calculated apparent diffusion coefficients.. FINDINGS: HEMORRHAGE/INFARCT: There is no hemorrhage or acute infarct. MASSES/SHIFT: There is no mass or shift. EXTRA-AXIAL SPACES/MENINGES: There are no extra-axial fluid collections. SULCI AND VENTRICLES: The sulci and ventricles are normal in size and position for the patient's stated age. CEREBRUM: On T2 FLAIR images there is scattered periventricular and subcortical white matter bright signal that is fairly symmetrically dispersed in the bilateral hemispheres. There are no corresponding lesion seen on the T1-weighted images or on diffusion -weighted imaging. There is no large mass, mass effect or midline shift. BRAINSTEM: There are no focal parenchymal abnormalities. CEREBELLUM: There are no focal parenchymal abnormalities. The cerebellar tonsils are normal in size and position. SELLA: The sella is normal. PINEAL: The pineal region is clear. CP ANGLE/TEMPORAL BONES: The labyrinthine structures are grossly normal. VESSELS: Normal flow-voids are noted within the visualized vertebral vasculature. DIFFUSION ABNORMALITIES: There are no diffusion abnormalities. PARANASAL SINUSES/MASTOIDS: The paranasal sinuses are clear. ORBITS: The orbits are unremarkable. BONES AND SOFT TISSUE: No bone or soft tissue abnormalities are noted. IMPRESSION: SCATTERED T2 BRIGHT PERIVENTRICULAR AND SUBCORTICAL WHITE MATTER FOCI WITH THE LARGEST FOCUS OF UPTAKE AT THE LEFT PARIETAL LOBE MEASURING 1.3 CM. THERE IS NO CORRESPONDING BRIGHT SIGNAL ON DIFFUSION-WEIGHTED IMAGING TO INDICATE ACUTE FOCAL OR TERRITORIAL INFARCTION. MOST COMMONLY THIS APPEARANCE IS THE CONSEQUENCE OF CHRONIC MICROVASCULAR DISEASE. IF THERE IS CLINICAL SUSPICION FOR ACUTE DEMYELINATING DISEASE THEN FURTHER CHARACTERIZATION CAN BE MADE WITH CONTRAST-ENHANCED MRI OF THE BRAIN. <Electronically signed by Dylan Thomas MD in OV> 10/25/18 6621 This report is only to be considered final once signed by the Provider(s) as displayed in the "<Electronically Signed by >" field (s). Absence of a signature indicates the report is in a draft status and still needs to be finalized. In the event this document was created by someone other than the signing Provider, the individual initiating the document will be listed in the "Entered by:" or "Dictated by:" [email or web address]. 1 of 2 Assess/Plan/Problems-Billing Assessment: This is a 78 yo M with PMH of HTN, GERD, and BPH; who presented to the ED with c /o generalized weakness and was found to have new onset afib and high grade cervical myelopathy.. - Patient Problems (1) Cervical myelopathy Code(s): G95.9 - DISEASE OF SPINAL CORD, UNSPECIFIED SNOMED Code(s): 854419194 Comment: - Weakness likely 2/2 high grade cervical stenosis as noted in imaging above - Neurosurgery consulting, plan is for surgical decompression next week; discussed with Dr. Pickett, he is trying to get him into the OR on . - Cervical collar for comfort - No indication for steroids at this time - Concern that changes on MRI brain may represent demyelinating process per radiology report, does not appear to have had acute infarct. Will discuss with neurology, may represent outpatient follow up. Dr. Pickett did evaluate MRI of the brain. (2) Atrial fibrillation Code(s): I48.91 - UNSPECIFIED ATRIAL FIBRILLATION SNOMED Code(s): 19941317 Comment: - New onset with some tachycardia upon arrival, but now rate controlled with spontaneous conversion to NSR 10/24/18 - Appreciate Cardiology consult with Dr. Weinberg; he will f/u with Dr. Saenz at the [place] office at d/c - Echo shows EF 55-60%, mild to moderate LVH, LV function is adequate - Continue diltiazem, eliquis initiated but now on hold for surgery. Per neurosurgery, prefers he is off AC for at least 4-5 days to minimize bleeding risk - Heparin subq for DVT prophy until Eliquis can be restarted post-operatively (3) BPH (benign prostatic hyperplasia) Code(s): N40.0 - BENIGN PROSTATIC HYPERPLASIA WITHOUT LOWER URINRY TRACT SYMP SNOMED Code(s): 466509034 Comment: - Continue tamsulosin (4) Hypertension Current Visit: Yes Status: Acute Code(s): I10 - ESSENTIAL (PRIMARY) HYPERTENSION SNOMED Code(s): 53682775 Comment: - Moderate control, 130-160s - Continue amlodipine (5) Restless legs syndrome (RLS) Comment: - Continue Requip 2 hours before bedtime (6) DVT prophylaxis Code(s): LVW4123 - SNOMED Code(s): 294649226 Comment: - HSQ, hold night before surgery and utilize SCDs (7) Full code status Code(s): Z78.9 - OTHER SPECIFIED HEALTH STATUS SNOMED Code(s): 546824080 Comment: Status and Disposition: Inpatient pending surgery next week. NPO after midnight on Tuesday in anticipation of surgery 11/02/18.
[2018-10-27] MEDS: rOPINIRole TAB* 1 MG PO SCH ×2 (18:19→20:59)
[2018-10-27] MEDS: traMADol TAB* 50 MG PO PRN ×2 (18:27→23:28)
[2018-10-27] MEDS: Acetaminophen TAB* 325 MG PO PRN (21:34)
[2018-10-27] MEDS: Famotidine TAB* 20 MG PO SCH (21:35)
[2018-10-27] MEDS: Melatonin 3 MG TAB PO PRN (21:35)
[2018-10-28] MEDS: Heparin VIAL(*) 5000 UNITS/ML VIAL (FIVE THOUSAND) SUBCUT SCH ×3 (05:10→21:25)
[2018-10-28] MEDS: Magnesium Oxide TAB* 400 MG PO SCH (09:06)
[2018-10-28] MEDS: Omeprazole CAP (NF) 20 MG CAP.DR PO SCH ×2 (09:06→15:00)
[2018-10-28] MEDS: Tamsulosin CAP* 0.4 MG PO SCH (09:06)
[2018-10-28] MEDS: amLODIPine TAB* 5 MG PO SCH (09:06)
[2018-10-28] MEDS: Diltiazem CD CAP* 180 MG PO SCH (09:06)
[2018-10-28] MEDS: Potassium Chlor TAB* 10 MEQ TAB.ER PO SCH (09:06)
--- NOTE | 2018-10-28 10:54 | PN ---
Subjective Date of Service: 10/28/18 Interval History: Mr. Oconnor reports some mild neck pain today. He also notes that he was a little bit woozy after breakfast and hoped to take a nap. He reports no change with his weakness and has been up to the bathroom this morning. He denies other complaint including chest pain, SOB or abdominal pain. Family History: Unchanged from Admission Social History: Unchanged from Admission Past Medical History: Unchanged from Admission Objective Active Medications: Acetaminophen (Tylenol Tab*) 650 mg PO Q4H PRN Amlodipine Besylate (Norvasc Tab*) 5 mg PO DAILY JN Diltiazem HCl (Cardizem Cd Cap*) 180 mg PO DAILY JN Docusate Sodium (Colace Cap*) 100 mg PO BID PRN Famotidine (Pepcid Tab*) 40 mg PO BEDTIME JN Heparin Sodium (Porcine) (Heparin Vial(*)) 5,000 units SUBCUT Q8HR JN Sodium Chloride (Ns 0.9% 1000 Ml*) 1,000 mls @ 75 mls/hr IV PER RATE JN Magnesium Oxide (Magox 400 Tab*) 400 mg PO DAILY JN Melatonin (Melatonin) 3 mg PO BEDTIME PRN; Protocol Omeprazole (Prilosec Cap*) 20 mg PO BID AC JN Potassium Chloride (Klor Con Er Tab*) 10 meq PO DAILY JN Ropinirole HCl (Requip Tab*) 1 mg PO BEDTIME JN Tamsulosin HCl (Flomax Cap*) 0.8 mg PO DAILY JN Throat Lozenges (Chloraseptic Karolina*) 1 karolina PO Q6H PRN Tramadol HCl (Ultram*) 50 mg PO Q4H PRN Vital Signs: Temp Pulse Resp BP Pulse Ox 97.8 F 67 22 133/77 96 10/28/18 10:08 10/28/18 10:08 10/28/18 10:08 10/28/18 10:08 10/28/18 10:08 Oxygen Devices in Use Now: None Appearance: Male lying in bed in NAD Eyes: No Scleral Icterus Ears/Nose/Mouth/Throat: Mucous Membranes Moist Neck: Trachea Midline Respiratory: Symmetrical Chest Expansion and Respiratory Effort, Clear to Auscultation Cardiovascular: NL Sounds; No Murmurs; No JVD, No Edema Abdominal: NL Sounds; No Tenderness; No Distention Extremities: No Edema Skin: No Rash or Ulcers Neurological: Alert and Oriented x 3, NL Muscle Strength and Tone Nutrition: Taking PO's Result Diagrams: 10/24/18 01:42 10/25/18 10:03 Diagnostic Imaging: . Assess/Plan/Problems-Billing Assessment: Mr. Oconnor is a 78 yo M with PMH of HTN, GERD, and BPH; who presented to the ED with c/o generalized weakness and was found to have new onset afib and high grade cervical myelopathy. - Patient Problems (1) Cervical myelopathy Comment: - Weakness likely 2/2 high grade cervical stenosis as noted in imaging - Neurosurgery consulting, plan is for surgical decompression next week; discussed with Dr. Pickett, he is trying to get him into the OR on . - Cervical collar for comfort. Tramadol and acetaminophen prn. No indication for steroids at this time - Concern that changes on MRI brain may represent demyelinating process per radiology report, does not appear to have had acute infarct. Will discuss with neurology, more likely reflective of chronic microvascular changes (2) Atrial fibrillation Comment: - New onset with some tachycardia upon arrival, but now rate controlled with spontaneous conversion to NSR 10/24/18 - Appreciate Cardiology consult with Dr. Weinberg; he will f/u with Dr. Saenz at the [place] office at d/c - Echo shows EF 55-60%, mild to moderate LVH, LV function is adequate - Continue diltiazem, eliquis initiated but now on hold for surgery. Per neurosurgery, prefers he is off AC for at least 4-5 days to minimize bleeding risk - Heparin subq for DVT prophy until Eliquis can be restarted post-operatively (3) BPH (benign prostatic hyperplasia) Comment: - Continue tamsulosin (4) Hypertension Comment: - Moderate control, 130-160s - Continue amlodipine (5) Restless legs syndrome (RLS) Comment: - Continue Requip 2 hours before bedtime (6) DVT prophylaxis Comment: - HSQ, hold night before surgery and utilize SCDs (7) Full code status Comment: Status and Disposition: Inpatient pending surgery next week. NPO after midnight on Tuesday in anticipation of surgery 11/02/18.
--- NOTE | 2018-10-28 14:53 | PN ---
Progress Note - Progress Note Date of Service: 10/28/18 SOAP: Subjective: []Patient seen on and today. No events ON. Tolerates PO well, Voids, Ambulates with walker. Patient reports progressive weakness of all extremities with neck pain and bilateral hand numbness. Reports that over the course of the last several weeks , he gradually has lost the ability to use his hands, lost dexterity and the ability to ambulate. MRI revealed DDD with severe stenosis. Patient was diagnosed with Afib at admission and was started on Eliquis. Patient has converted to SR. Patient reports that for a long time, every time he was trying to lift hia arms above his shoulder level, he would feel a warm, electrical type of feeling radiating from his neck through his whole body and his hands would become weak and had to lower them. Family at bedside. Objective: []VSS, Afebrile. AAOx3 SHELBIE, CN II-XII grossly intact, decreased hearing bilaterally. Motor 4-5/5 all extremities. Patient has increased generalized tone and mild contraction of his fingers. Decreased ROM of thais shoulders. Sensory grossly intact to light touch. DTR +4 bilateraly, Bab +/- thais, Clonus positive thais, Jim's positive thais. Assessment: []78 yom Afib, severe cervical spondylotic myelopathy Plan: []Monitor VS, Neurochecks. MJ collar for comfort IS CT revealed DDD, XR with F/E did not reveal instability. Discussed in extend with patient and family regarding treatment options and possible surgical intervention. I believe the patient is a candidate for a posterior cervical laminectomy/laminoplasty and fusion C3-6 possible C2 to T2. Discussed in extend regarding indications, expectations, limitations and possible complications of the procedure with complications including but not limited to bleeding, infection, risk of injury to adjacent structures, coma, paralysis, , stroke, blindness, , need for additional procedures, hardware failure, instability, adjacent level disease, pseudoarthrosis, spinal fluid leak, vertebral artery injury, anesthesia risks. Patient and family understood and would like to proceed with surgical intervention. Patient understands that his condition may not improve and in fact may get worse after the surgery and that the purpose of the surgery is to decompress the spine and possibly prevent further spinal cord injury. He understands that there is a chance that he may need ICU stay and need for prolonged hospitalization, and rehabilitation. Also he understands that operative plan may be modified according to intraoperative findings and conditions and that the case may be abandoned or done in more than one stages. We will plan on surgery next week provided he is able to obtain IM, cardiology and anesthesia clearance. Hold Casie. Discussed with IM team. Appreciate IM, cardiology care. Stephy Pickett MD
[2018-10-28] MEDS: Hydrocortisone 1% CREAM* 30 GM TUBE TOPICAL SCH (19:08)
[2018-10-28] MEDS: rOPINIRole TAB* 1 MG PO SCH (19:38)
[2018-10-28] MEDS: traMADol TAB* 50 MG PO PRN (20:24)
[2018-10-28] MEDS: Melatonin 3 MG TAB PO PRN (21:25)
[2018-10-28] MEDS: Famotidine TAB* 20 MG PO SCH (21:26)
[2018-10-29] MEDS: Heparin VIAL(*) 5000 UNITS/ML VIAL (FIVE THOUSAND) SUBCUT SCH ×3 (05:30→20:45)
[2018-10-29] MEDS: Tamsulosin CAP* 0.4 MG PO SCH (08:01)
[2018-10-29] MEDS: Hydrocortisone 1% CREAM* 30 GM TUBE TOPICAL SCH ×4 (08:01→20:45)
[2018-10-29] MEDS: Omeprazole CAP (NF) 20 MG CAP.DR PO SCH ×2 (08:01→15:53)
[2018-10-29] MEDS: Magnesium Oxide TAB* 400 MG PO SCH (08:02)
[2018-10-29] MEDS: amLODIPine TAB* 5 MG PO SCH (08:02)
[2018-10-29] MEDS: Diltiazem CD CAP* 180 MG PO SCH (08:02)
[2018-10-29] MEDS: Potassium Chlor TAB* 10 MEQ TAB.ER PO SCH (08:02)
[2018-10-29] MEDS: Fluticasone NASAL SPRAY 50MCG* 16 gm SPRAY BTL BOTH NARES SCH (11:38)
--- NOTE | 2018-10-29 14:00 | PN ---
Progress Note - Progress Note Date of Service: 10/29/18 SOAP: Subjective: [] No events ON. Tolerates PO well, Voids, Ambulates with walker. Objective: [] VSS, Afebrile. AAOx3 SHELBIE, CN II-XII grossly intact, decreased hearing bilaterally. Motor 4-5/5 all extremities. Patient has increased generalized tone and mild contraction of his fingers. Decreased ROM of thais shoulders. Sensory grossly intact to light touch. DTR +4 bilateraly, Bab +/- thais, Clonus positive htais, Jim's positive thais. Assessment: []78 yom Afib, severe cervical spondylotic myelopathy Plan: []Monitor VS, Neurochecks. MJ collar for comfort IS Plan for OR next week. Appreciate IM, cardiology care. Stephy Pickett MD
--- NOTE | 2018-10-29 14:18 | PN ---
Subjective Date of Service: 10/29/18 Interval History: Mr Oconnor denies new complaint today. He notes that his neck has not been bothering him today but he has had some shoulder pain which has been chronic which he attributes to arthritis. He denies chest pain, palpitations, nausea, or abdominal pain. Family History: Unchanged from Admission Social History: Unchanged from Admission Past Medical History: Unchanged from Admission Objective Active Medications: Acetaminophen (Tylenol Tab*) 650 mg PO Q4H PRN Amlodipine Besylate (Norvasc Tab*) 5 mg PO DAILY JN Diltiazem HCl (Cardizem Cd Cap*) 180 mg PO DAILY JN Docusate Sodium (Colace Cap*) 100 mg PO BID PRN Famotidine (Pepcid Tab*) 40 mg PO BEDTIME JN Fluticasone Propionate (Flonase Nasal [place] 50mcg*) 2 spray BOTH NARES DAILY JN Heparin Sodium (Porcine) (Heparin Vial(*)) 5,000 units SUBCUT Q8HR JN Hydrocortisone (Hytone Cream 1%*) 1 applic TOPICAL QID JN Magnesium Oxide (Magox 400 Tab*) 400 mg PO DAILY JN Melatonin (Melatonin) 3 mg PO BEDTIME PRN; Protocol Omeprazole (Prilosec Cap*) 20 mg PO BID AC JN Potassium Chloride (Klor Con Er Tab*) 10 meq PO DAILY JN Ropinirole HCl (Requip Tab*) 1 mg PO BEDTIME JN Tamsulosin HCl (Flomax Cap*) 0.8 mg PO DAILY JN Throat Lozenges (Chloraseptic Karolina*) 1 karolina PO Q6H PRN Tramadol HCl (Ultram*) 50 mg PO Q4H PRN Vital Signs: Temp Pulse Resp BP Pulse Ox 98.2 F 56 16 139/64 98 10/29/18 15:31 10/29/18 15:31 10/29/18 15:31 10/29/18 15:31 10/29/18 15:31 Oxygen Devices in Use Now: None Appearance: Male lying in bed in NAD Eyes: No Scleral Icterus Ears/Nose/Mouth/Throat: Mucous Membranes Moist Neck: Trachea Midline Respiratory: Symmetrical Chest Expansion and Respiratory Effort, Clear to Auscultation Cardiovascular: NL Sounds; No Murmurs; No JVD, No Edema Abdominal: NL Sounds; No Tenderness; No Distention Lymphatic: No Cervical Adenopathy Extremities: No Edema Skin: No Rash or Ulcers Neurological: Alert and Oriented x 3, NL Muscle Strength and Tone Nutrition: Taking PO's Result Diagrams: 10/24/18 01:42 10/25/18 10:03 Diagnostic Imaging: . Assess/Plan/Problems-Billing Assessment: Mr. Oconnor is a 78 yo M with PMH of HTN, GERD, and BPH; who presented to the ED with c/o generalized weakness and was found to have new onset afib and high grade cervical myelopathy. - Patient Problems (1) Cervical myelopathy Comment: - Weakness likely 2/2 high grade cervical stenosis as noted in imaging - Neurosurgery consulting, plan is for surgical decompression next week; discussed with Dr. Pickett, he is trying to get him into the OR on . - Cervical collar for comfort. Tramadol and acetaminophen prn. No indication for steroids at this time - Concern that changes on MRI brain may represent demyelinating process per radiology report, however clinical presentation consistent with high grade cervical stenosis and these flair signals more likely reflective of chronic microvascular changes (2) Atrial fibrillation Comment: - New onset with some tachycardia upon arrival, but now rate controlled with spontaneous conversion to NSR 10/24/18 - Appreciate Cardiology consult with Dr. Weinberg; he will f/u with Dr. Saenz at the [place] office at d/c - Echo shows EF 55-60%, mild to moderate LVH, LV function is adequate - Continue diltiazem, eliquis initiated but now on hold for surgery. Per neurosurgery, prefers he is off AC for at least 4-5 days to minimize bleeding risk - Heparin subq for DVT prophy until Eliquis can be restarted post-operatively (3) BPH (benign prostatic hyperplasia) Comment: - Continue tamsulosin (4) Hypertension Comment: - Moderate control, 130-160s - Continue amlodipine (5) Restless legs syndrome (RLS) Comment: - Continue Requip 2 hours before bedtime (6) DVT prophylaxis Comment: - HSQ, hold night before surgery and utilize SCDs (7) Full code status Comment: Status and Disposition: Inpatient pending surgery next week. NPO after midnight on Tuesday in anticipation of surgery 11/02/18.
[2018-10-29] MEDS: rOPINIRole TAB* 1 MG PO SCH ×2 (18:28→20:59)
[2018-10-29] MEDS: Famotidine TAB* 20 MG PO SCH (20:45)
[2018-10-29] MEDS: Acetaminophen TAB* 325 MG PO PRN (23:46)
[2018-10-29] MEDS: Melatonin 3 MG TAB PO PRN (23:47)
[2018-10-29] MEDS: Benzocaine/Menthol LOZ* 1 LOZENGE PO PRN (23:48)
[2018-10-30] MEDS: Heparin VIAL(*) 5000 UNITS/ML VIAL (FIVE THOUSAND) SUBCUT SCH ×3 (06:01→21:06)
[2018-10-30] MEDS: Omeprazole CAP (NF) 20 MG CAP.DR PO SCH ×2 (06:02→16:06)
[2018-10-30] MEDS: Potassium Chlor TAB* 10 MEQ TAB.ER PO SCH (08:11)
[2018-10-30] MEDS: amLODIPine TAB* 5 MG PO SCH (08:11)
[2018-10-30] MEDS: Diltiazem CD CAP* 180 MG PO SCH (08:11)
[2018-10-30] MEDS: Tamsulosin CAP* 0.4 MG PO SCH (08:12)
[2018-10-30] MEDS: Fluticasone NASAL SPRAY 50MCG* 16 gm SPRAY BTL BOTH NARES SCH (08:12)
[2018-10-30] MEDS: Magnesium Oxide TAB* 400 MG PO SCH (08:12)
[2018-10-30] MEDS: Hydrocortisone 1% CREAM* 30 GM TUBE TOPICAL SCH ×4 (08:14→21:06)
--- NOTE | 2018-10-30 14:09 | PN ---
Subjective Date of Service: 10/30/18 Interval History: Mr. Oconnor reports continued weakness that is unchanged. He denies any new complaint. He is hopeful that his surgery will happen on . Family History: Unchanged from Admission Social History: Unchanged from Admission Past Medical History: Unchanged from Admission Objective Active Medications: Acetaminophen (Tylenol Tab*) 650 mg PO Q4H PRN Amlodipine Besylate (Norvasc Tab*) 5 mg PO DAILY JN Diltiazem HCl (Cardizem Cd Cap*) 180 mg PO DAILY JN Docusate Sodium (Colace Cap*) 100 mg PO BID PRN Famotidine (Pepcid Tab*) 40 mg PO BEDTIME JN Fluticasone Propionate (Flonase Nasal [place] 50mcg*) 2 spray BOTH NARES DAILY JN Heparin Sodium (Porcine) (Heparin Vial(*)) 5,000 units SUBCUT Q8HR JN Hydrocortisone (Hytone Cream 1%*) 1 applic TOPICAL QID JN Magnesium Oxide (Magox 400 Tab*) 400 mg PO DAILY JN Melatonin (Melatonin) 3 mg PO BEDTIME PRN; Protocol Omeprazole (Prilosec Cap*) 20 mg PO BID AC JN Potassium Chloride (Klor Con Er Tab*) 10 meq PO DAILY JN Ropinirole HCl (Requip Tab*) 1 mg PO BEDTIME JN Tamsulosin HCl (Flomax Cap*) 0.8 mg PO DAILY JN Throat Lozenges (Chloraseptic Karolina*) 1 karolina PO Q6H PRN Tramadol HCl (Ultram*) 50 mg PO Q4H PRN Vital Signs: Temp Pulse Resp BP Pulse Ox 97.4 F 71 16 154/73 98 10/30/18 11:29 10/30/18 11:29 10/30/18 11:29 10/30/18 11:29 10/30/18 11:29 Oxygen Devices in Use Now: None Appearance: Male sitting up in bed in NAD Eyes: No Scleral Icterus Ears/Nose/Mouth/Throat: Mucous Membranes Moist Neck: Trachea Midline Respiratory: Symmetrical Chest Expansion and Respiratory Effort, Clear to Auscultation Cardiovascular: NL Sounds; No Murmurs; No JVD, No Edema Abdominal: NL Sounds; No Tenderness; No Distention Lymphatic: No Cervical Adenopathy Extremities: No Edema Skin: No Rash or Ulcers Neurological: Alert and Oriented x 3, NL Muscle Strength and Tone Nutrition: Taking PO's Result Diagrams: 10/24/18 01:42 10/25/18 10:03 Diagnostic Imaging: . Assess/Plan/Problems-Billing Assessment: Mr. Oconnor is a 78 yo M with PMH of HTN, GERD, and BPH; who presented to the ED with c/o generalized weakness and was found to have new onset afib and high grade cervical myelopathy. - Patient Problems (1) Cervical myelopathy Comment: - Weakness likely 2/2 high grade cervical stenosis as noted in imaging - Neurosurgery consulting, plan is for surgical decompression next week; discussed with Dr. Pickett, he is trying to get him into the OR on . Patient too weak to be discharged to home to follow up with surgery outpatient. - Cervical collar for comfort. Tramadol and acetaminophen prn. No indication for steroids at this time - Concern that changes on MRI brain may represent demyelinating process per radiology report, however clinical presentation consistent with high grade cervical stenosis and these flair signals more likely reflective of chronic microvascular changes, reviewed images with neurology (2) Atrial fibrillation Comment: - New onset with some tachycardia upon arrival, but now rate controlled with spontaneous conversion to NSR 10/24/18 - Appreciate Cardiology consult with Dr. Weinberg; he will f/u with Dr. Saenz at the [place] office at d/c - Echo shows EF 55-60%, mild to moderate LVH, LV function is adequate - Continue diltiazem, eliquis initiated but now on hold for surgery. Per neurosurgery, prefers he is off AC for at least 4-5 days to minimize bleeding risk - Heparin subq for DVT prophy until Eliquis can be restarted post-operatively (3) BPH (benign prostatic hyperplasia) Comment: - Continue tamsulosin (4) Hypertension Comment: - Moderate control, 130-160s - Continue amlodipine (5) Restless legs syndrome (RLS) Comment: - Continue Requip 2 hours before bedtime (6) DVT prophylaxis Comment: - HSQ, hold night before surgery and utilize SCDs (7) Full code status Comment: Status and Disposition: Inpatient pending surgery next week. NPO after midnight on Tuesday in anticipation of surgery 11/02/18.
[2018-10-30] MEDS: rOPINIRole TAB* 1 MG PO SCH ×2 (18:14→19:11)
[2018-10-30] MEDS: Famotidine TAB* 20 MG PO SCH (21:05)
[2018-10-31] MEDS: Acetaminophen TAB* 325 MG PO PRN (05:10)
[2018-10-31] MEDS: Heparin VIAL(*) 5000 UNITS/ML VIAL (FIVE THOUSAND) SUBCUT SCH ×3 (05:11→21:25)
[2018-10-31] MEDS: Magnesium Oxide TAB* 400 MG PO SCH (08:19)
[2018-10-31] MEDS: Diltiazem CD CAP* 180 MG PO SCH (08:19)
[2018-10-31] MEDS: Omeprazole CAP (NF) 20 MG CAP.DR PO SCH ×2 (08:19→16:15)
[2018-10-31] MEDS: Tamsulosin CAP* 0.4 MG PO SCH (08:19)
[2018-10-31] MEDS: Fluticasone NASAL SPRAY 50MCG* 16 gm SPRAY BTL BOTH NARES SCH (08:19)
[2018-10-31] MEDS: Potassium Chlor TAB* 10 MEQ TAB.ER PO SCH (08:19)
[2018-10-31] MEDS: amLODIPine TAB* 5 MG PO SCH (08:19)
[2018-10-31] MEDS: Hydrocortisone 1% CREAM* 30 GM TUBE TOPICAL SCH ×4 (08:20→21:26)
[2018-10-31] MEDS: Docusate CAP* 100 MG PO PRN (11:28)
[2018-10-31] MEDS ORDERED: Saline NASAL SPRAY 0.65%* BTL BOTH NARES PRN (11:36)
--- NOTE | 2018-10-31 12:20 | PN ---
Subjective Date of Service: 10/31/18 Interval History: Patient seen and examined. Complaint of post nasal drip and cough. Denies chest pain, no SOB, no wheeze. States pain and weakness in upper extremities is unchanged. Family History: Unchanged from Admission Social History: Unchanged from Admission Past Medical History: Unchanged from Admission Objective Active Medications: Acetaminophen (Tylenol Tab*) 650 mg PO Q4H PRN PRN Reason: FEVER/PAIN Last Admin: 10/31/18 05:10 Dose: 650 mg Amlodipine Besylate (Norvasc Tab*) 5 mg PO DAILY [facility] Last Admin: 10/31/18 08:19 Dose: 5 mg Diltiazem HCl (Cardizem Cd Cap*) 180 mg PO DAILY [facility] Last Admin: 10/31/18 08:19 Dose: 180 mg Docusate Sodium (Colace Cap*) 100 mg PO BID PRN PRN Reason: CONSTIPATION Last Admin: 10/31/18 11:28 Dose: 100 mg Famotidine (Pepcid Tab*) 40 mg PO BEDTIME [facility] Last Admin: 10/30/18 21:05 Dose: 40 mg Fluticasone Propionate (Flonase Nasal [place] 50mcg*) 2 spray BOTH NARES DAILY [facility] Last Admin: 10/31/18 08:19 Dose: 2 spray Heparin Sodium (Porcine) (Heparin Vial(*)) 5,000 units SUBCUT Q8HR [facility] Last Admin: 10/31/18 05:11 Dose: 5,000 units Hydrocortisone (Hytone Cream 1%*) 1 applic TOPICAL QID [facility] Last Admin: 10/31/18 11:44 Dose: Not Given Magnesium Oxide (Magox 400 Tab*) 400 mg PO DAILY [facility] Last Admin: 10/31/18 08:19 Dose: 400 mg Melatonin (Melatonin) 3 mg PO BEDTIME PRN; Protocol PRN Reason: SLEEP Last Admin: 10/29/18 23:47 Dose: 3 mg Omeprazole (Prilosec Cap*) 20 mg PO BID AC [facility] Last Admin: 10/31/18 08:19 Dose: 20 mg Potassium Chloride (Klor Con Er Tab*) 10 meq PO DAILY [facility] Last Admin: 10/31/18 08:19 Dose: 10 meq Ropinirole HCl (Requip Tab*) 1 mg PO BEDTIME [facility] Last Admin: 10/30/18 19:11 Dose: Not Given Sodium Chloride (Sodium Chloride 0.65% Nasal [place]*) 1 spray BOTH NARES Q4H PRN PRN Reason: nasal congestion Tamsulosin HCl (Flomax Cap*) 0.8 mg PO DAILY JN Last Admin: 10/31/18 08:19 Dose: 0.8 mg Throat Lozenges (Chloraseptic Karolina*) 1 karolina PO Q6H PRN PRN Reason: SORE THROAT Last Admin: 10/29/18 23:48 Dose: 1 karolina Tramadol HCl (Ultram*) 50 mg PO Q4H PRN PRN Reason: PAIN Last Admin: 10/28/18 20:24 Dose: 50 mg Vital Signs - 8 hr 10/31/18 10/31/18 10/31/18 07:35 08:00 10:53 Temperature 97.9 F 98.1 F Pulse Rate 67 84 Respiratory 14 16 16 Rate Blood Pressure 149/75 155/91 (mmHg) O2 Sat by Pulse 97 97 Oximetry Oxygen Devices in Use Now: None Appearance: alert, NAD Eyes: No Scleral Icterus, PERRLA Ears/Nose/Mouth/Throat: NL Teeth, Lips, Gums, Mucous Membranes Moist Neck: NL Appearance and Movements; NL JVP, Trachea Midline Respiratory: Symmetrical Chest Expansion and Respiratory Effort, Clear to Auscultation Cardiovascular: NL Sounds; No Murmurs; No JVD, RRR, No Edema Abdominal: NL Sounds; No Tenderness; No Distention Extremities: No Edema, No Clubbing, Cyanosis Skin: No Rash or Ulcers, No Nodules or Sclerosis Neurological: Alert and Oriented x 3, - - diminished sensation LUE Nutrition: Taking PO's Result Diagrams: 10/24/18 01:42 10/25/18 10:03 Diagnostic Imaging: . Assess/Plan/Problems-Billing Assessment: Mr. Oconnor is a 78 yo M with PMH of HTN, GERD, and BPH; who presented to the ED with c/o generalized weakness and was found to have new onset afib and high grade cervical myelopathy. - Patient Problems (1) Cervical myelopathy Code(s): G95.9 - DISEASE OF SPINAL CORD, UNSPECIFIED SNOMED Code(s): 322900398 Comment: - Weakness likely 2/2 high grade cervical stenosis as noted in imaging - Neurosurgery consulting, plan is for surgical decompression next week; discussed with Dr. Pickett, he is trying to get him into the OR on . Patient too weak to be discharged to home to follow up with surgery outpatient. - Cervical collar for comfort. Tramadol and acetaminophen prn. No indication for steroids at this time - MRI likely reflects chronic microvascular changes, images reviewed by neurology, no further intervention required (2) Atrial fibrillation Code(s): I48.91 - UNSPECIFIED ATRIAL FIBRILLATION SNOMED Code(s): 55777320 Comment: - New onset with some tachycardia upon arrival, but now rate controlled with spontaneous conversion to NSR 10/24/18 - Appreciate Cardiology consult with Dr. Weinberg; he will f/u with Dr. Saenz at the [place] office at d/c - Echo shows EF 55-60%, mild to moderate LVH, LV function is adequate - Continue diltiazem, eliquis initiated but now on hold for surgery. Per neurosurgery, prefers he is off AC for at least 4-5 days to minimize bleeding risk - Heparin subq for DVT prophy until Eliquis can be restarted post-operatively - Has been regular since conversion (3) BPH (benign prostatic hyperplasia) Code(s): N40.0 - BENIGN PROSTATIC HYPERPLASIA WITHOUT LOWER URINRY TRACT SYMP SNOMED Code(s): 752079123 Comment: - Continue tamsulosin (4) Hypertension Current Visit: Yes Status: Acute Code(s): I10 - ESSENTIAL (PRIMARY) HYPERTENSION SNOMED Code(s): 63818800 Comment: - Moderate control, 130-160s - Continue amlodipine (5) Restless legs syndrome (RLS) Comment: - Continue Requip 2 hours before bedtime (6) Allergic rhinitis Code(s): J30.9 - ALLERGIC RHINITIS, UNSPECIFIED SNOMED Code(s): 28591783 Comment: - On flonase, add saline nasal spray today (7) DVT prophylaxis Code(s): SVL4555 - SNOMED Code(s): 006727084 Comment: - HSQ, hold night before surgery and utilize SCDs (8) Full code status Code(s): Z78.9 - OTHER SPECIFIED HEALTH STATUS SNOMED Code(s): 934834652 Comment: Status and Disposition: Inpatient pending surgery next week. NPO after midnight on Tuesday in anticipation of surgery 11/02/18.
[2018-10-31] MEDS: rOPINIRole TAB* 1 MG PO SCH ×2 (18:52→19:00)
[2018-10-31] MEDS: Famotidine TAB* 20 MG PO SCH (21:23)
[2018-11-01] MEDS: Heparin VIAL(*) 5000 UNITS/ML VIAL (FIVE THOUSAND) SUBCUT SCH ×3 (05:28→20:52)
[2018-11-01] MEDS: Omeprazole CAP (NF) 20 MG CAP.DR PO SCH ×2 (07:56→16:42)
[2018-11-01] MEDS: Tamsulosin CAP* 0.4 MG PO SCH (07:57)
[2018-11-01] MEDS: Docusate CAP* 100 MG PO PRN (07:57)
[2018-11-01] MEDS: Diltiazem CD CAP* 180 MG PO SCH (07:57)
[2018-11-01] MEDS: Potassium Chlor TAB* 10 MEQ TAB.ER PO SCH (07:57)
[2018-11-01] MEDS: Magnesium Oxide TAB* 400 MG PO SCH (07:57)
[2018-11-01] MEDS: amLODIPine TAB* 5 MG PO SCH (07:58)
[2018-11-01] MEDS: Hydrocortisone 1% CREAM* 30 GM TUBE TOPICAL SCH ×4 (07:58→20:06)
[2018-11-01] MEDS: Fluticasone NASAL SPRAY 50MCG* 16 gm SPRAY BTL BOTH NARES SCH (07:58)
[2018-11-01] MEDS: Glycerin ADULT SUPP PR PRN (13:37)
--- NOTE | 2018-11-01 14:41 | PN ---
Subjective Date of Service: 11/01/18 Interval History: Patient seen and examined. Only complaint is lack of BM, still feels constipated. Aware that he was back in afib last night but converted again to RSR this AM. Remained asymptomatic with RVR. Weakness in UE remains the same. Family History: Unchanged from Admission Social History: Unchanged from Admission Past Medical History: Unchanged from Admission Objective Active Medications: Acetaminophen (Tylenol Tab*) 650 mg PO Q4H PRN PRN Reason: FEVER/PAIN Last Admin: 10/31/18 05:10 Dose: 650 mg Amlodipine Besylate (Norvasc Tab*) 5 mg PO DAILY [facility] Last Admin: 11/01/18 07:58 Dose: 5 mg Diltiazem HCl (Cardizem Cd Cap*) 180 mg PO DAILY [facility] Last Admin: 11/01/18 07:57 Dose: 180 mg Docusate Sodium (Colace Cap*) 100 mg PO BID PRN PRN Reason: CONSTIPATION Last Admin: 11/01/18 07:57 Dose: 100 mg Famotidine (Pepcid Tab*) 40 mg PO BEDTIME [facility] Last Admin: 10/31/18 21:23 Dose: 40 mg Fluticasone Propionate (Flonase Nasal [place] 50mcg*) 2 spray BOTH NARES DAILY [facility] Last Admin: 11/01/18 07:58 Dose: 2 spray Glycerin (Glycerin Adult Supp*) 1 supp [place] DAILY PRN PRN Reason: CONSTIPATION Last Admin: 11/01/18 13:37 Dose: 1 supp Heparin Sodium (Porcine) (Heparin Vial(*)) 5,000 units SUBCUT Q8HR [facility] Last Admin: 11/01/18 13:37 Dose: 5,000 units Hydrocortisone (Hytone Cream 1%*) 1 applic TOPICAL QID [facility] Last Admin: 11/01/18 12:35 Dose: 1 applic Magnesium Oxide (Magox 400 Tab*) 400 mg PO DAILY [facility] Last Admin: 11/01/18 07:57 Dose: 400 mg Melatonin (Melatonin) 3 mg PO BEDTIME PRN; Protocol PRN Reason: SLEEP Last Admin: 10/29/18 23:47 Dose: 3 mg Omeprazole (Prilosec Cap*) 20 mg PO BID AC [facility] Last Admin: 11/01/18 07:56 Dose: 20 mg Potassium Chloride (Klor Con Er Tab*) 10 meq PO DAILY [facility] Last Admin: 11/01/18 07:57 Dose: 10 meq Ropinirole HCl (Requip Tab*) 1 mg PO BEDTIME [facility] Last Admin: 10/31/18 19:00 Dose: Not Given Sodium Chloride (Sodium Chloride 0.65% Nasal [place]*) 1 spray BOTH NARES Q4H PRN PRN Reason: nasal congestion Tamsulosin HCl (Flomax Cap*) 0.8 mg PO DAILY [facility] Last Admin: 11/01/18 07:57 Dose: 0.8 mg Throat Lozenges (Chloraseptic Karolina*) 1 karolina PO Q6H PRN PRN Reason: SORE THROAT Last Admin: 10/29/18 23:48 Dose: 1 karolina Tramadol HCl (Ultram*) 50 mg PO Q4H PRN PRN Reason: PAIN Last Admin: 10/28/18 20:24 Dose: 50 mg Vital Signs - 8 hr 11/01/18 11/01/18 07:52 08:00 Temperature 97.9 F Pulse Rate 78 Respiratory 20 20 Rate Blood Pressure 140/101 (mmHg) O2 Sat by Pulse 95 Oximetry Oxygen Devices in Use Now: None Appearance: alert, NAD Eyes: No Scleral Icterus, PERRLA Ears/Nose/Mouth/Throat: NL Teeth, Lips, Gums, Mucous Membranes Moist Neck: NL Appearance and Movements; NL JVP, Trachea Midline Respiratory: Symmetrical Chest Expansion and Respiratory Effort, Clear to Auscultation Cardiovascular: NL Sounds; No Murmurs; No JVD, RRR Abdominal: NL Sounds; No Tenderness; No Distention Extremities: No Edema, No Clubbing, Cyanosis Skin: No Rash or Ulcers, No Nodules or Sclerosis Neurological: Alert and Oriented x 3, - - bilateral UE weakness Nutrition: Taking PO's Result Diagrams: 10/24/18 01:42 10/25/18 10:03 Diagnostic Imaging: . Assess/Plan/Problems-Billing Assessment: Mr. Oconnor is a 78 yo M with PMH of HTN, GERD, and BPH; who presented to the ED with c/o generalized weakness and was found to have new onset afib and high grade cervical myelopathy. - Patient Problems (1) Cervical myelopathy Code(s): G95.9 - DISEASE OF SPINAL CORD, UNSPECIFIED SNOMED Code(s): 153162462 Comment: - Weakness likely 2/2 high grade cervical stenosis as noted in imaging - Neurosurgery consulting, plan is for surgical decompression next week; discussed with Dr. Pickett, he is trying to get him into the OR on . Patient too weak to be discharged to home to follow up with surgery outpatient. - Cervical collar for comfort. Tramadol and acetaminophen prn. No indication for steroids at this time - MRI likely reflects chronic microvascular changes, images reviewed by neurology, no further intervention required (2) Atrial fibrillation Code(s): I48.91 - UNSPECIFIED ATRIAL FIBRILLATION SNOMED Code(s): 69266386 Comment: - New onset with initial spontaneous conversion to NSR 10/24/18, but seems to be paroxysmal last 24 hours - Remains off AC for surgery - Per consult with Dr. Weinberg; he will f/u with Dr. Saenz at the [place] office at d/c - Echo shows EF 55-60%, mild to moderate LVH, LV function is adequate - Continue diltiazem for rate control - Heparin subq for DVT prophy until Eliquis can be restarted post-operatively - Has been regular since conversion (3) BPH (benign prostatic hyperplasia) Code(s): N40.0 - BENIGN PROSTATIC HYPERPLASIA WITHOUT LOWER URINRY TRACT SYMP SNOMED Code(s): 840266274 Comment: - Continue tamsulosin (4) Hypertension Code(s): I10 - ESSENTIAL (PRIMARY) HYPERTENSION SNOMED Code(s): 27876627 Comment: - Moderate control, 130-160s - Continue amlodipine (5) Constipation Code(s): K59.00 - CONSTIPATION, UNSPECIFIED SNOMED Code(s): 32970619 Comment: - On stool softener already - Add lactulose today and PRN suppository (6) Restless legs syndrome (RLS) Comment: - Continue Requip 2 hours before bedtime (7) Allergic rhinitis Code(s): J30.9 - ALLERGIC RHINITIS, UNSPECIFIED SNOMED Code(s): 53511424 Comment: - On flonase, add saline nasal spray today (8) DVT prophylaxis Code(s): ANY1972 - SNOMED Code(s): 394801983 Comment: - HSQ, hold night before surgery and utilize SCDs (9) Full code status Code(s): Z78.9 - OTHER SPECIFIED HEALTH STATUS SNOMED Code(s): 991559824 Comment: Status and Disposition: Inpatient pending surgery or Tuesday. Appreciate guidance from neurosurgery on timing.
[2018-11-01] MEDS: rOPINIRole TAB* 1 MG PO SCH (19:23)
[2018-11-01] MEDS: Famotidine TAB* 20 MG PO SCH (20:05)
--- NOTE | 2018-11-01 20:31 | PN ---
Progress Note - Progress Note Date of Service: 11/01/18 SOAP: Subjective: []No events ON. Tolerates PO well, Voids, Ambulates with walker. Objective: []VSS, Afebrile. AAOx3 SHELBIE, CN II-XII grossly intact, decreased hearing bilaterally. Motor 4-5/5 all extremities. Patient has increased generalized tone and mild contraction of his fingers. Decreased ROM of thais shoulders. Sensory grossly intact to light touch. DTR +4 bilateraly, Bab +/- thais, Clonus positive thais, Jim's positive thais. Assessment: []78 yom Afib, severe cervical spondylotic myelopathy Plan: []Monitor VS, Neurochecks. MJ collar for comfort IS NPO after midnight Possible OR tomorrow, if ok with IM, cardiology. Appreciate IM, cardiology care. Stephy Pickett MD
[2018-11-01] MEDS ORDERED: NS 0.9% 1000 ML* 1,000 ML IV SCH (23:00)
[2018-11-02] MEDS: Heparin VIAL(*) 5000 UNITS/ML VIAL (FIVE THOUSAND) SUBCUT SCH ×2 (05:13→13:58)
[2018-11-02] MEDS: Diltiazem CD CAP* 180 MG PO SCH (08:59)
[2018-11-02] MEDS: Fluticasone NASAL SPRAY 50MCG* 16 gm SPRAY BTL BOTH NARES SCH (08:59)
[2018-11-02] MEDS: Magnesium Oxide TAB* 400 MG PO SCH (08:59)
[2018-11-02] MEDS: amLODIPine TAB* 5 MG PO SCH (08:59)
[2018-11-02] MEDS: Tamsulosin CAP* 0.4 MG PO SCH (08:59)
[2018-11-02] MEDS: Omeprazole CAP (NF) 20 MG CAP.DR PO SCH (08:59)
[2018-11-02] MEDS: Potassium Chlor TAB* 10 MEQ TAB.ER PO SCH (08:59)
[2018-11-02] MEDS: Hydrocortisone 1% CREAM* 30 GM TUBE TOPICAL SCH ×4 (09:02→20:30)
--- NOTE | 2018-11-02 11:47 | PN ---
Subjective Date of Service: 11/02/18 Interval History: Patient seen and examined. Had BM yesterday and this morning and is feeling better. Remains in RSR on telemetry. Denies SOB, no chest pain, no dizziness. Remains with upper extremity weakness at baseline. Remains NPO for possible surgery this evening. Family History: Unchanged from Admission Social History: Unchanged from Admission Past Medical History: Unchanged from Admission Objective Active Medications: Acetaminophen (Tylenol Tab*) 650 mg PO Q4H PRN PRN Reason: FEVER/PAIN Last Admin: 10/31/18 05:10 Dose: 650 mg Amlodipine Besylate (Norvasc Tab*) 5 mg PO DAILY [facility] Last Admin: 11/02/18 08:59 Dose: 5 mg Diltiazem HCl (Cardizem Cd Cap*) 180 mg PO DAILY [facility] Last Admin: 11/02/18 08:59 Dose: 180 mg Docusate Sodium (Colace Cap*) 100 mg PO BID PRN PRN Reason: CONSTIPATION Last Admin: 11/01/18 07:57 Dose: 100 mg Famotidine (Pepcid Tab*) 40 mg PO BEDTIME [facility] Last Admin: 11/01/18 20:05 Dose: 40 mg Fluticasone Propionate (Flonase Nasal [place] 50mcg*) 2 spray BOTH NARES DAILY [facility] Last Admin: 11/02/18 08:59 Dose: 2 spray Glycerin (Glycerin Adult Supp*) 1 supp [place] DAILY PRN PRN Reason: CONSTIPATION Last Admin: 11/01/18 13:37 Dose: 1 supp Heparin Sodium (Porcine) (Heparin Vial(*)) 5,000 units SUBCUT Q8HR [facility] Last Admin: 11/02/18 05:13 Dose: Not Given Hydrocortisone (Hytone Cream 1%*) 1 applic TOPICAL QID [facility] Last Admin: 11/02/18 09:02 Dose: Not Given Sodium Chloride (Ns 0.9% 1000 Ml*) 1,000 mls @ 50 mls/hr IV .PER RATE [facility] Last Admin: 11/01/18 21:41 Dose: 50 mls/hr Magnesium Oxide (Magox 400 Tab*) 400 mg PO DAILY [facility] Last Admin: 11/02/18 08:59 Dose: 400 mg Melatonin (Melatonin) 3 mg PO BEDTIME PRN; Protocol PRN Reason: SLEEP Last Admin: 10/29/18 23:47 Dose: 3 mg Pantoprazole Sodium (Protonix Tab *) 40 mg PO BID [facility] Potassium Chloride (Klor Con Er Tab*) 10 meq PO DAILY [facility] Last Admin: 11/02/18 08:59 Dose: 10 meq Ropinirole HCl (Requip Tab*) 1 mg PO BEDTIME [facility] Last Admin: 11/01/18 19:23 Dose: 1 mg Sodium Chloride (Sodium Chloride 0.65% Nasal [place]*) 1 spray BOTH NARES Q4H PRN PRN Reason: nasal congestion Tamsulosin HCl (Flomax Cap*) 0.8 mg PO DAILY [facility] Last Admin: 11/02/18 08:59 Dose: 0.8 mg Throat Lozenges (Chloraseptic Karolina*) 1 karolina PO Q6H PRN PRN Reason: SORE THROAT Last Admin: 10/29/18 23:48 Dose: 1 karolina Tramadol HCl (Ultram*) 50 mg PO Q4H PRN PRN Reason: PAIN Last Admin: 10/28/18 20:24 Dose: 50 mg Vital Signs - 8 hr 11/02/18 11/02/18 11/02/18 04:06 07:24 08:00 Temperature 97.6 F 97.9 F Pulse Rate 59 67 Respiratory 16 14 18 Rate Blood Pressure 143/61 134/69 (mmHg) O2 Sat by Pulse 96 97 Oximetry Oxygen Devices in Use Now: None Appearance: alert, NAD Eyes: No Scleral Icterus, PERRLA Ears/Nose/Mouth/Throat: NL Teeth, Lips, Gums, Mucous Membranes Moist Neck: NL Appearance and Movements; NL JVP, Trachea Midline Respiratory: Symmetrical Chest Expansion and Respiratory Effort, Clear to Auscultation Cardiovascular: NL Sounds; No Murmurs; No JVD, RRR, No Edema Abdominal: NL Sounds; No Tenderness; No Distention, No Hepatosplenomegaly Extremities: No Edema, No Clubbing, Cyanosis Skin: No Rash or Ulcers Neurological: Alert and Oriented x 3, - - diminished sensation LUE Nutrition: - - NPO Result Diagrams: 10/24/18 01:42 10/25/18 10:03 Diagnostic Imaging: . Assess/Plan/Problems-Billing Assessment: Mr. Oconnor is a 78 yo M with PMH of HTN, GERD, and BPH; who presented to the ED with c/o generalized weakness and was found to have new onset afib and high grade cervical myelopathy. - Patient Problems (1) Cervical myelopathy Code(s): G95.9 - DISEASE OF SPINAL CORD, UNSPECIFIED SNOMED Code(s): 244036907 Comment: - Weakness 2/2 high grade cervical stenosis as noted in imaging - Plan for OR tonight if schedule permits, otherwise has OR spot for tomorrow - Patient too weak to be discharged to home to follow up with surgery outpatient. - Cervical collar for comfort. Tramadol and acetaminophen prn. No indication for steroids at this time - MRI likely reflects chronic microvascular changes, images reviewed by neurology, no further intervention required (2) Atrial fibrillation Code(s): I48.91 - UNSPECIFIED ATRIAL FIBRILLATION SNOMED Code(s): 49162616 Comment: - New onset with initial spontaneous conversion to NSR 10/24/18, but seems to be paroxysmal last 24 hours - Remains off AC for surgery - Per consult with Dr. Weinberg; he will f/u with Dr. Saenz at the [place] office at d/c - Echo shows EF 55-60%, mild to moderate LVH, LV function is adequate - Continue diltiazem for rate control - Heparin subq for DVT prophy until Eliquis can be restarted post-operatively - EKG and echo stable, remains medically optimized for surgery today (3) BPH (benign prostatic hyperplasia) Code(s): N40.0 - BENIGN PROSTATIC HYPERPLASIA WITHOUT LOWER URINRY TRACT SYMP SNOMED Code(s): 457833579 Comment: - Continue tamsulosin (4) Hypertension Code(s): I10 - ESSENTIAL (PRIMARY) HYPERTENSION SNOMED Code(s): 90872292 Comment: - Moderate control, 130-160s - Continue amlodipine (5) Constipation Code(s): K59.00 - CONSTIPATION, UNSPECIFIED SNOMED Code(s): 39518627 Comment: - On stool softener already - Improved post lactulose yesterday and PRN suppository (6) Restless legs syndrome (RLS) Comment: - Continue Requip 2 hours before bedtime (7) Allergic rhinitis Code(s): J30.9 - ALLERGIC RHINITIS, UNSPECIFIED SNOMED Code(s): 53788417 Comment: - On flonase, add saline nasal spray today (8) DVT prophylaxis Code(s): SSD3222 - SNOMED Code(s): 930515550 Comment: - HSQ, hold night before surgery and utilize SCDs (9) Full code status Code(s): Z78.9 - OTHER SPECIFIED HEALTH STATUS SNOMED Code(s): 853564158 Comment: Status and Disposition: Inpatient pending surgery this evening if possible.
[2018-11-02] MEDS: Pantoprazole TAB * 40 MG TAB PO SCH (15:55)
[2018-11-02] MEDS: Acetaminophen TAB* 325 MG PO PRN (15:55)
[2018-11-02] MEDS: rOPINIRole TAB* 1 MG PO SCH ×2 (18:51→20:30)
[2018-11-02] MEDS: Famotidine TAB* 20 MG PO SCH (20:27)
[2018-11-03] MEDS ORDERED: Buffered Lidocaine 1% SYRIN* 1 ML/SYRINGE INTRADERM ONE (06:00)
[2018-11-03] MEDS ORDERED: Metoclopramide IV* 5 MG/ML 2 ML VIAL IV SLOW PU ONE (06:00)
[2018-11-03] MEDS ORDERED: Lactated Ringers 1000 ML Bag* 1,000 ML IV SCH (06:00)
[2018-11-03] MEDS: Magnesium Oxide TAB* 400 MG PO SCH (08:02)
[2018-11-03] MEDS: Fluticasone NASAL SPRAY 50MCG* 16 gm SPRAY BTL BOTH NARES SCH (08:02)
[2018-11-03] MEDS: Potassium Chlor TAB* 10 MEQ TAB.ER PO SCH (08:02)
[2018-11-03] MEDS: amLODIPine TAB* 5 MG PO SCH (08:02)
[2018-11-03] MEDS: Tamsulosin CAP* 0.4 MG PO SCH (08:02)
[2018-11-03] MEDS: Pantoprazole TAB * 40 MG TAB PO SCH ×2 (08:03→17:33)
[2018-11-03] MEDS: Diltiazem CD CAP* 180 MG PO SCH (08:03)
[2018-11-03] MEDS: Hydrocortisone 1% CREAM* 30 GM TUBE TOPICAL SCH ×4 (08:04→21:08)
--- NOTE | 2018-11-03 08:26 | PN ---
Subjective Date of Service: 11/03/18 Interval History: No complaints this morning, eager to get to for surgery. No chest pain, no palpitations. Family History: Unchanged from Admission Social History: Unchanged from Admission Past Medical History: Unchanged from Admission Objective Active Medications: Acetaminophen (Tylenol Tab*) 650 mg PO Q4H PRN PRN Reason: FEVER/PAIN Last Admin: 11/02/18 15:55 Dose: 650 mg Amlodipine Besylate (Norvasc Tab*) 5 mg PO DAILY [facility] Last Admin: 11/03/18 08:02 Dose: 5 mg Diltiazem HCl (Cardizem Cd Cap*) 180 mg PO DAILY [facility] Last Admin: 11/03/18 08:03 Dose: 180 mg Docusate Sodium (Colace Cap*) 100 mg PO BID PRN PRN Reason: CONSTIPATION Last Admin: 11/01/18 07:57 Dose: 100 mg Famotidine (Pepcid Tab*) 40 mg PO BEDTIME [facility] Last Admin: 11/02/18 20:27 Dose: 40 mg Fluticasone Propionate (Flonase Nasal [place] 50mcg*) 2 spray BOTH NARES DAILY [facility] Last Admin: 11/03/18 08:02 Dose: 2 spray Glycerin (Glycerin Adult Supp*) 1 supp [place] DAILY PRN PRN Reason: CONSTIPATION Last Admin: 11/01/18 13:37 Dose: 1 supp Hydrocortisone (Hytone Cream 1%*) 1 applic TOPICAL QID [facility] Last Admin: 11/03/18 08:04 Dose: Not Given Lactated Ringer's (Lactated Ringers 1000 Ml Bag*) 1,000 mls @ 125 mls/hr IV PER RATE [facility] Last Admin: 11/03/18 05:42 Dose: 125 mls/hr Magnesium Oxide (Magox 400 Tab*) 400 mg PO DAILY [facility] Last Admin: 11/03/18 08:02 Dose: 400 mg Melatonin (Melatonin) 3 mg PO BEDTIME PRN; Protocol PRN Reason: SLEEP Last Admin: 10/29/18 23:47 Dose: 3 mg Pantoprazole Sodium (Protonix Tab *) 40 mg PO BID AC [facility] Last Admin: 11/03/18 08:03 Dose: 40 mg Potassium Chloride (Klor Con Er Tab*) 10 meq PO DAILY [facility] Last Admin: 11/03/18 08:02 Dose: 10 meq Ropinirole HCl (Requip Tab*) 1 mg PO BEDTIME [facility] Last Admin: 11/02/18 20:30 Dose: Not Given Sodium Chloride (Sodium Chloride 0.65% Nasal [place]*) 1 spray BOTH NARES Q4H PRN PRN Reason: nasal congestion Tamsulosin HCl (Flomax Cap*) 0.8 mg PO DAILY [facility] Last Admin: 11/03/18 08:02 Dose: 0.8 mg Throat Lozenges (Chloraseptic Karolina*) 1 karolina PO Q6H PRN PRN Reason: SORE THROAT Last Admin: 10/29/18 23:48 Dose: 1 karolina Tramadol HCl (Ultram*) 50 mg PO Q4H PRN PRN Reason: PAIN Last Admin: 10/28/18 20:24 Dose: 50 mg Vital Signs - 8 hr 11/03/18 11/03/18 11/03/18 01:56 03:22 07:54 Temperature 98.0 F 97.7 F 98.1 F Pulse Rate 63 68 63 Respiratory 16 16 16 Rate Blood Pressure 118/70 127/58 137/81 (mmHg) O2 Sat by Pulse 97 97 98 Oximetry Oxygen Devices in Use Now: None Appearance: Elderly male lying in bed, not in distress. Ears/Nose/Mouth/Throat: Mucous Membranes Moist Respiratory: Clear to Auscultation Cardiovascular: - - Irregularly irregular, no murmurs. No edema Neurological: Alert and Oriented x 3, - - Decreased sensation at the left arm Result Diagrams: 10/24/18 01:42 10/25/18 10:03 Diagnostic Imaging: . Assess/Plan/Problems-Billing Assessment: Mr. Oconnor is a 78 yo M with PMH of HTN, GERD, and BPH; who presented to the ED with c/o generalized weakness and was found to have new onset afib and high grade cervical myelopathy. - Patient Problems (1) Atrial fibrillation Current Visit: Yes Status: Acute Code(s): I48.91 - UNSPECIFIED ATRIAL FIBRILLATION SNOMED Code(s): 00345106 Comment: New onset with initial spontaneous conversion to NSR 10/24/18, but seems to be paroxysmal - Remains off AC for surgery - Per consult with Dr. Weinberg; he will f/u with Dr. Saenz at the [place] office at d/c - Echo shows EF 55-60%, mild to moderate LVH, LV function is adequate - Continue diltiazem for rate control - For surgery today. (2) BPH (benign prostatic hyperplasia) Current Visit: Yes Status: Acute Code(s): N40.0 - BENIGN PROSTATIC HYPERPLASIA WITHOUT LOWER URINRY TRACT SYMP SNOMED Code(s): 239534810 Comment: Continue tamsulosin (3) Cervical myelopathy Current Visit: Yes Status: Acute Code(s): G95.9 - DISEASE OF SPINAL CORD, UNSPECIFIED SNOMED Code(s): 589249054 Comment: Weakness 2/2 high grade cervical stenosis as noted in imaging Plan for OR today. Tramadol and acetaminophen prn. No indication for steroids at this time (4) DVT prophylaxis Current Visit: Yes Status: Acute Code(s): YZK0027 - SNOMED Code(s): 543388828 Comment: - HSQ, hold night before surgery and utilize SCDs (5) Hypertension Current Visit: Yes Status: Acute Code(s): I10 - ESSENTIAL (PRIMARY) HYPERTENSION SNOMED Code(s): 70513116 Comment: Will monitor BP, now that he is on cardizem for rate control, will discontinue amlodipine (6) Restless legs syndrome (RLS) Current Visit: Yes Status: Acute Comment: Continue Requip 2 hours before bedtime Status and Disposition: For surgery today.
[2018-11-03] MEDS ORDERED: Cisatracurium* 2 MG/ML MDV 5 ML ONE (08:39)
[2018-11-03] MEDS ORDERED: Lidocaine 2% PF * 5 ML VIAL ONE ×2 (08:39→08:40)
[2018-11-03] MEDS ORDERED: Phenylephrine INJ* 10 MG/ML 1 ML VIAL (10 MG) ONE ×3 (08:39→12:08)
[2018-11-03] MEDS ORDERED: Ondansetron INJ* 2 MG/ML VIAL ONE (08:39)
[2018-11-03] MEDS ORDERED: Dexamethasone IV* 4 MG/ML 1 ML (4 MG) ONE (08:39)
[2018-11-03] MEDS ORDERED: fentaNYL* 50 MCG/ML 2 ML VIAL (100 MCG VIAL) ONE ×2 (08:39→15:36)
[2018-11-03] MEDS ORDERED: Propofol* 10 MG/ML 20 ML BTL ONE (08:39)
[2018-11-03] MEDS ORDERED: Midazolam* 1 MG/ML 10 ML VIAL (10 MG) ONE (08:39)
[2018-11-03] MEDS ORDERED: Remifentanil* 2 MG VIAL ONE (09:01)
[2018-11-03] MEDS ORDERED: Artificial Tear OPHTH.OINT* 3.5 GM ONE (09:01)
[2018-11-03] MEDS ORDERED: Propofol* 500 MG/50 ML BTL ONE (09:02)
[2018-11-03] MEDS ORDERED: Lidocaine 1% MPF wEPI 200,000* 30 ML SDV ONE (09:25)
[2018-11-03] MEDS ORDERED: Bacitracin IV* 50,000 UNITS INJ ONE (09:25)
[2018-11-03] MEDS ORDERED: Thrombin 5,000 UNITS(BOVINE)* for Ultrasound Guided Pseudoaneursym ONE (09:25)
[2018-11-03] MEDS ORDERED: Metoclopramide IV* 5 MG/ML 2 ML VIAL ONE (09:25)
[2018-11-03] MEDS ORDERED: Vancomycin(*) 1,000 MG in NS 0.9% 250 ML* 250 ML IVPB ONE (09:45)
--- NOTE | 2018-11-03 09:48 | PN ---
Progress Note - Progress Note Date of Service: 11/03/18 SOAP: Subjective: [] No events ON. NPO. Objective: []VSS, Afebrile. AAOx3 SHELBIE, CN II-XII grossly intact, decreased hearing bilaterally. Motor 4-5/5 all extremities. Patient has increased generalized tone and mild contraction of his fingers. Decreased ROM of thais shoulders. Sensory grossly intact to light touch. DTR +4 bilateraly, Bab +/- thais, Clonus positive thais, Jim's positive thais. Assessment: []]78 yom Afib, severe cervical spondylotic myelopathy Plan: []To OR today for posterior cervical decompression and fusion. Discussed again in extend with patient and family regarding indications, expectations, limitations and possible complications of the procedure with complications including but not limited to bleeding, infection, risk of injury to adjacent structures, coma, paralysis, , stroke, blindness, , need for additional procedures, hardware failure, instability, adjacent level disease , pseudoarthrosis, spinal fluid leak, vertebral artery injury, anesthesia risks. Patient and family understood and would like to proceed with surgical intervention. Patient understands that his condition may not improve and in fact may get worse after the surgery and that the purpose of the surgery is to decompress the spine and possibly prevent further spinal cord injury. He understands that there is a chance that he may need ICU stay and need for prolonged hospitalization, and rehabilitation. Also he understands that operative plan may be modified according to intraoperative findings and conditions and that the case may be abandoned or done in more than one stages. Appreciate , cardiology care. Stephy Pickett MD
[2018-11-03] MEDS ORDERED: Succinylcholine* 20 MG/ML 10 ML VIAL ONE (10:06)
[2018-11-03] MEDS ORDERED: VASOPRESSIN 20 UNITS/ML 1 ML VIAL ONE (10:36)
[2018-11-03] MEDS ORDERED: Glycopyrrolate IV* 0.2 MG/ML 1 ML VIAL ONE (12:06)
[2018-11-03] MEDS ORDERED: Atropine 1MG/ML INJ* 1 ML VIAL ONE (12:20)
[2018-11-03] MEDS ORDERED: Calcium CHLORIDE 10% SYRINGE* 1 GM/10 ML ONE (12:58)
[2018-11-03] MEDS ORDERED: Ondansetron INJ* 2 MG/ML VIAL IV PRN (14:29)
[2018-11-03] MEDS ORDERED: Naloxone* 0.4 MG/ML 1 ML VIAL IV PRN (14:29)
[2018-11-03] MEDS ORDERED: HYDROmorphone INJ1* 1 MG/ML SYRINGE ONE (14:35)
[2018-11-03] MEDS: fentaNYL* 50 MCG/ML 2 ML VIAL (100 MCG VIAL) IV PRN ×2 (15:36→16:01)
[2018-11-03] MEDS: Lactated Ringers 1000 ML Bag* 1,000 ML IV SCH (17:34)
[2018-11-03] MEDS: Famotidine TAB* 20 MG PO SCH (21:20)
[2018-11-03] MEDS: Docusate CAP* 100 MG PO PRN (21:20)
[2018-11-03] MEDS: rOPINIRole TAB* 1 MG PO SCH (21:28)
--- NOTE | 2018-11-03 21:30 | OP ---
DATE OF OPERATION: 11/03/18 - ROOM #440 DATE OF : 44 SURGEON: Dr. Kyaw Pickett. STRUCTURAL METAL WORKER: JEREMIE Cotton. ANESTHESIA: General. PRE-OP DIAGNOSES: Cervical spondylosis, myelopathy. POST-OP DIAGNOSES: Cervical spondylosis, myelopathy. OPERATIVE PROCEDURE: The patient underwent posterior cervical decompression and fusion with arthrodesis at C3-4, C4-5, C5-6 and decompressive laminectomies at C2 to C7 with locally harvested bone graft and DBX and intraoperative monitoring. ESTIMATED BLOOD LOSS: 75 cc. COMPLICATIONS: None. 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 The patient was offered the option of surgical intervention and after explaining the expectations, limitations, and possible complications of the procedure to the patient and his family including his son and [id number] with complications including, but not limited to bleeding, infection, risk of injury to adjacent structures, coma, paralysis, , need for additional procedures, anesthesia risks, stroke, blindness, cancer, instability, hardware failure, adjacent-level disease, pseudoarthrosis, hardware malpositioning, proximal, distal or cervicothoracic junctional kyphosis,spinal fluid leak, need for tracheostomy or gastrostomy, and need for prolonged ICU stay; the patient was agreeable to proceed with surgery and informed consent was obtained. The patient understood that his condition may not improve and, in fact, may get worse after surgery and that he may need to have additional procedures in the future. He also understood that the operative plan may be modified according to intraoperative findings and conditions and that the case could be abandoned or done in more than one stage. DESCRIPTION OF PROCEDURE: The patient was brought to the operative room and was placed under general anesthesia by anesthesia team. He was carefully positioned prone on the Barrett table and all bony prominences were meticulously padded. His skin was prepped and draped in the standard fashion. After appropriate surgical pause and patient identification, a midline incision was marked on the skin over the spinous processes of C2 to C7. Of note, intraoperative electrophysiological monitoring was performed and pre- and post- positioning monitoring did not show any changes. The skin was infiltrated with local anesthetic and a #10 surgical blade was used to incise the skin. The incision was carried down to subcutaneous tissue with Bovie cautery and self- retaining retractors were introduced into the field. The dorsal fascia was divided in both sides of midline with Bovie cautery, and the paraspinal musculature was elevated in subperiosteal fashion with the use of periosteal elevator and Bovie cautery. Intraoperative fluoroscopic imaging confirmed appropriate surgical levels, and the spinous processes and lamina as well as the facets of C3 to C6 were identified and exposed. A high-speed drill was used to jesse the entry point for the lateral mass screws while a handheld drill was used to create the pathway for placement of the screws. The trajectory was then tapped and medical probe confirmed bony surfaces in all directions; 3.5 x 12 mm screws were then inserted bilaterally at C3, C4, C5, and C6. Prior to the insertion, the facets were decorticated and prepared for the arthrodesis part. Two 60 mm rods were contoured in shape and were placed at each side in order to connect the screw heads and secured in place with screw head caps. Then, a laminectomy was performed between the lower part of C2 to the superior part of C7 with the use of high-speed drill and Kerrison punches. The laminae of C3 to C6 were removed in their entirety, while the inferior part of C2 and the superior part of C7 were undercut with 1 mm Kerrison punches. Of note, significant compression was found as expected from the preoperative imaging at the C3-4 level while there was significant indentation of the thecal sac. After removing the point of compression, the ligamentum flavum was gently removed with the use of #1 Kerrison and excellent decompression was then observed. Significant indentation of the thecal sac and stenosis was also noted at the C5-6 and C6-7 levels. With the use of Kerrison #1, excellent decompression was achieved. After confirmation of meticulous hemostasis and copious irrigation, the outer aspects of the facets and exposed, the bony surfaces were decorticated with high-speed drill and locally harvested bone graft mixed with DBX after morcellizing the bone graft was placed in both sides of the midline and into the exposed bony surfaces in order to perform the arthrodesis. The self- retaining retractors were removed from the field and the wound was closed by layers after confirmation of meticulous hemostasis, copious irrigation, and meticulous inspection, over a Jani drain, which was tunneled through a separate stab wound incision. The dorsal fascia was approximated with 0 Vicryl sutures while the subcutaneous tissue was approximated with 0 and 2-0 inverted interrupted Vicryl sutures. The skin was then covered with Dermabond. At the end of the procedure, all counts were reported to be correct. The patient remained hemodynamically stable throughout the case and intraoperative electrophysiological monitoring was stable throughout the case. The patient was then turned supine, was extubated, and was transferred to Recovery in excellent condition. The case was done with the assistance of surgical PA because of the complexity of the case. [id number]/[facility] #: [id number] GERI
[2018-11-03] MEDS: Melatonin 3 MG TAB PO PRN (23:14)
[2018-11-04] MEDS: Acetaminophen TAB* 325 MG PO PRN (01:32)
[2018-11-04] MEDS: HYDROcodone/ACETAMIN 5-325 MG* 1 TAB PO PRN ×4 (03:55→20:21)
[2018-11-04 06:29] LABS: ABS Basophils 0 10^3/ul (0-0.2); ABS Eosinophils 0 10^3/ul (0-0.6); ABS Lymphocytes 0.7 10^3/ul (1.0-4.8); ABS Monocytes 0.7 10^3/ul (0-0.8); ABS Neutrophils 10.4 10^3/ul (1.5-7.7); ABS Nucleated RBC 0 10^3/ul; Eosinophil % 0 %; Hematocrit 39 % (42-52); Hemoglobin 13.3 g/dl (14.0-18.0); Lymphocyte % 6.3 %; Mean Corpuscular HGB Conc 34 g/dl (31-36); Mean Corpuscular Hemoglobin 30 pg (27-31); Mean Corpuscular Volume 89 fL (80-94); Mean Platelet Volume 6.9 fL (7.4-10.4); Nucleated Red Blood Cells % 0; Platelet Count 292 10^3/ul (150-450); Red Cell Distribution Width 14 % (10.5-15); White Blood Count 11.8 10^3/ul (3.5-10.8)
[2018-11-04 06:50] LABS: BUN/Creatinine Ratio 23.9 (8-20); Calcium 9.6 mg/dL (8.6-10.3); EGFR Non-African American 107.9 (>60); Magnesium 1.9 mg/dL (1.9-2.7); Phosphorus 3.6 mg/dL (2.5-5.0)
[2018-11-04] MEDS: Hydrocortisone 1% CREAM* 30 GM TUBE TOPICAL SCH ×4 (07:33→20:21)
[2018-11-04] MEDS: Magnesium Oxide TAB* 400 MG PO SCH (07:37)
[2018-11-04] MEDS: Pantoprazole TAB * 40 MG TAB PO SCH ×2 (07:37→15:40)
[2018-11-04] MEDS: Tamsulosin CAP* 0.4 MG PO SCH (07:37)
[2018-11-04] MEDS: Fluticasone NASAL SPRAY 50MCG* 16 gm SPRAY BTL BOTH NARES SCH (07:37)
[2018-11-04] MEDS: Potassium Chlor TAB* 10 MEQ TAB.ER PO SCH (07:37)
[2018-11-04] MEDS: Docusate CAP* 100 MG PO PRN (07:37)
[2018-11-04] MEDS: Diltiazem CD CAP* 180 MG PO SCH (07:37)
[2018-11-04] MEDS ORDERED: Senna TAB PO PRN (10:50)
[2018-11-04] MEDS: Cyclobenzaprine TAB* 10 MG PO PRN (11:23)
--- NOTE | 2018-11-04 12:49 | PN ---
Progress Note - Progress Note Date of Service: 11/04/18 SOAP: Subjective: [S/p posterior cervical decompression and fusion C3-6. Complains of posterior neck pain this morning. Did not sleep well last night due to discomfort. Denies headache, nausea. Reports feeling weak in general, hands improved. ] Objective: [ Vital Signs: Temp Pulse Resp BP Pulse Ox 97.9 F 87 18 166/78 98 11/04/18 04:11 11/04/18 04:11 11/04/18 06:30 11/04/18 04:11 11/04/18 04:11 General: Alert and sitting up in bed, NAD. [place] J collar in place. Neuro: Can Tender strength slightly improved. Hoffmans positive bilaterally. Sensation intact throughout. Incision: Intact, no swelling, tenderness. Wound drain in place and functioning well Wound drain output 11/03/18 11/03/18 11/03/18 16:30 18:24 23:18 Output, ABDIEL #1 30 30 2 11/04/18 11/04/18 03:49 06:26 Output, ABDIEL #1 70 30 ] Assessment: [Satisfactory post-op] Plan: [1. PT and OT eval today 2. Continue pain management, flexeril 3. Continue to monitor wound drain.]
--- NOTE | 2018-11-04 12:49 | PN ---
Subjective Date of Service: 11/04/18 Interval History: status post surgery yesterday cervical fusion. doing well, but was unable to sleep yesterday due to position and SCD this morning reports that he still has hand numbness but is able to use the hands better Family History: Unchanged from Admission Social History: Unchanged from Admission Past Medical History: Unchanged from Admission Objective Active Medications: Acetaminophen (Tylenol Tab*) 650 mg PO Q4H PRN PRN Reason: FEVER/PAIN Last Admin: 11/04/18 01:32 Dose: 650 mg Hydrocodone Bitart/Acetaminophen (Baylis 5-325 Tab*) 2 tab PO Q4H PRN PRN Reason: PAIN Last Admin: 11/04/18 11:16 Dose: 1 tab Cyclobenzaprine HCl (Flexeril Tab*) 10 mg PO TID PRN PRN Reason: muscle spasm Last Admin: 11/04/18 11:23 Dose: 10 mg Diltiazem HCl (Cardizem Cd Cap*) 180 mg PO DAILY [facility] Last Admin: 11/04/18 07:37 Dose: 180 mg Docusate Sodium (Colace Cap*) 100 mg PO BID PRN PRN Reason: CONSTIPATION Last Admin: 11/04/18 07:37 Dose: 100 mg Famotidine (Pepcid Tab*) 40 mg PO BEDTIME [facility] Last Admin: 11/03/18 21:20 Dose: 40 mg Fluticasone Propionate (Flonase Nasal Alpha 50mcg*) 2 spray BOTH NARES DAILY [facility] Last Admin: 11/04/18 07:37 Dose: 2 spray Glycerin (Glycerin Adult Supp*) 1 supp [place] DAILY PRN PRN Reason: CONSTIPATION Last Admin: 11/01/18 13:37 Dose: 1 supp Hydrocortisone (Hytone Cream 1%*) 1 applic TOPICAL QID [facility] Last Admin: 11/04/18 11:16 Dose: Not Given Lactated Ringer's (Lactated Ringers 1000 Ml Bag*) 1,000 mls @ 75 mls/hr IV PER RATE [facility] Last Admin: 11/03/18 17:34 Dose: 75 mls/hr Magnesium Oxide (Magox 400 Tab*) 400 mg PO DAILY [facility] Last Admin: 11/04/18 07:37 Dose: 400 mg Melatonin (Melatonin) 3 mg PO BEDTIME PRN; Protocol PRN Reason: SLEEP Last Admin: 11/03/18 23:14 Dose: 3 mg Pantoprazole Sodium (Protonix Tab *) 40 mg PO BID AC [facility] Last Admin: 11/04/18 07:37 Dose: 40 mg Potassium Chloride (Klor Con Er Tab*) 10 meq PO DAILY [facility] Last Admin: 11/04/18 07:37 Dose: 10 meq Ropinirole HCl (Requip Tab*) 1 mg PO BEDTIME [facility] Last Admin: 11/03/18 21:28 Dose: 1 mg Sodium Chloride (Sodium Chloride 0.65% Nasal Alpha*) 1 spray BOTH NARES Q4H PRN PRN Reason: nasal congestion Tamsulosin HCl (Flomax Cap*) 0.8 mg PO DAILY [facility] Last Admin: 11/04/18 07:37 Dose: 0.8 mg Throat Lozenges (Chloraseptic Karolina*) 1 karolina PO Q6H PRN PRN Reason: SORE THROAT Last Admin: 10/29/18 23:48 Dose: 1 kraolina Vital Signs - 8 hr 11/04/18 11/04/18 11/04/18 03:55 04:11 06:30 Temperature 97.9 F Pulse Rate 87 Respiratory 20 16 18 Rate Blood Pressure 166/78 (mmHg) O2 Sat by Pulse 98 Oximetry 11/04/18 11/04/18 11:16 11:23 Temperature Pulse Rate Respiratory 16 16 Rate Blood Pressure (mmHg) O2 Sat by Pulse Oximetry Oxygen Devices in Use Now: Nasal Cannula Appearance: Elderly male lying in bed, with cervical collar. not in distress Neck: - - cervical collar in place Respiratory: Clear to Auscultation Cardiovascular: - - irregularly irregular Neurological: Alert and Oriented x 3 Result Diagrams: 11/04/18 06:12 11/04/18 06:12 Diagnostic Imaging: . Assess/Plan/Problems-Billing Assessment: Mr. Oconnor is a 78 yo M with PMH of HTN, GERD, and BPH; who presented to the ED with c/o generalized weakness and was found to have new onset afib and high grade cervical myelopathy. - Patient Problems (1) Atrial fibrillation Current Visit: Yes Status: Acute Code(s): I48.91 - UNSPECIFIED ATRIAL FIBRILLATION SNOMED Code(s): 54795987 Comment: New onset with initial spontaneous conversion to NSR 10/24/18, but seems to be paroxysmal - Remains off AC for surgery- POD # 1 for cervical fusion, will need to discuss tomorrow regarding resume of anticoaulation - Per consult with Dr. Weinberg; he will f/u with Dr. Saenz at the [place] office at d/c - Echo shows EF 55-60%, mild to moderate LVH, LV function is adequate - Continue diltiazem for rate control - For surgery today. (2) BPH (benign prostatic hyperplasia) Current Visit: Yes Status: Acute Code(s): N40.0 - BENIGN PROSTATIC HYPERPLASIA WITHOUT LOWER URINRY TRACT SYMP SNOMED Code(s): 498392108 Comment: Continue tamsulosin (3) Cervical myelopathy Current Visit: Yes Status: Acute Code(s): G95.9 - DISEASE OF SPINAL CORD, UNSPECIFIED SNOMED Code(s): 721377737 Comment: Weakness 2/2 high grade cervical stenosis as noted in imaging POD # 1 for neurosurgery: cervical fusion pain control (4) DVT prophylaxis Current Visit: Yes Status: Acute Code(s): QLG7423 - SNOMED Code(s): 984250544 Comment: SCD (5) Hypertension Current Visit: Yes Status: Acute Code(s): I10 - ESSENTIAL (PRIMARY) HYPERTENSION SNOMED Code(s): 91344351 Comment: on cardizem d/c'ed home dose amlodipine since we started him on another CCB: cardizem (6) Restless legs syndrome (RLS) Current Visit: Yes Status: Acute Comment: Continue Requip 2 hours before bedtime
[2018-11-04] MEDS: Magnesium Hydroxide LIQ* 30 ML UDC PO SCH (20:21)
[2018-11-04] MEDS: Docusate CAP* 100 MG PO SCH (20:21)
[2018-11-04] MEDS: rOPINIRole TAB* 1 MG PO SCH (20:21)
[2018-11-04] MEDS: Famotidine TAB* 20 MG PO SCH (20:21)
[2018-11-05] MEDS: Lactated Ringers 1000 ML Bag* 1,000 ML IV SCH (00:45)
[2018-11-05] MEDS: HYDROcodone/ACETAMIN 5-325 MG* 1 TAB PO PRN ×4 (02:50→20:47)
--- NOTE | 2018-11-05 07:31 | PN ---
Progress Note - Progress Note Date of Service: 11/05/18 SOAP: Subjective: [S/p posterior cervical decompression and fusion C3-6, POD#2. Patient feeling very well, reports minimal neck pain. Worked with PT yesterday and is ambulating with assistance of a walker. Denies headache, nausea. States pre-op symptoms improved in upper extremities, although feels generally weak still. ] Objective: [ Vital Signs: Temp Pulse Resp BP Pulse Ox 98.4 F 81 17 157/83 95 11/05/18 03:00 11/05/18 03:00 11/05/18 03:00 11/05/18 03:00 11/05/18 03:00 General: Sitting up in bed, NAD Neuro: Project Officer strength improved bilaterally, sensation intact throughout, hoffmans positive bilaterally. Incision: Intact, no swelling, wound drain in place and functioning well. Wound drain output 11/03/18 11/03/18 11/03/18 16:30 18:24 23:18 Output, ABDIEL #1 30 30 2 11/04/18 11/04/18 11/04/18 03:49 06:26 11:43 Output, ABDIEL #1 70 30 60 11/04/18 11/04/18 11/04/18 13:46 20:21 22:09 Output, ABDIEL #1 30 60 30 11/05/18 11/05/18 02:40 05:27 Output, ABDIEL #1 45 30 ] Assessment: [Satisfactory post-op, recovering well. Pain well controlled with PO meds. Wound drain requires further monitoring and is therefore left in place. ] Plan: [1. PT again today 2. Encourage ambulation 3. Continue pain management 4. Possible discharge home tomorrow 5. Resume anticoagulation 5 days post-op ]
[2018-11-05] MEDS: Magnesium Hydroxide LIQ* 30 ML UDC PO SCH ×2 (08:14→20:40)
[2018-11-05] MEDS: Tamsulosin CAP* 0.4 MG PO SCH (08:14)
[2018-11-05] MEDS: Potassium Chlor TAB* 10 MEQ TAB.ER PO SCH (08:14)
[2018-11-05] MEDS: Magnesium Oxide TAB* 400 MG PO SCH (08:15)
[2018-11-05] MEDS: Docusate CAP* 100 MG PO SCH ×2 (08:15→20:36)
[2018-11-05] MEDS: Fluticasone NASAL SPRAY 50MCG* 16 gm SPRAY BTL BOTH NARES SCH (08:15)
[2018-11-05] MEDS: Pantoprazole TAB * 40 MG TAB PO SCH ×2 (08:15→17:18)
[2018-11-05] MEDS: Diltiazem CD CAP* 180 MG PO SCH (08:15)
[2018-11-05] MEDS: Hydrocortisone 1% CREAM* 30 GM TUBE TOPICAL SCH ×4 (08:22→20:40)
[2018-11-05 09:42] LABS: ABS Basophils 0.1 10^3/ul (0-0.2); ABS Eosinophils 0 10^3/ul (0-0.6); ABS Lymphocytes 1.5 10^3/ul (1.0-4.8); ABS Monocytes 1.3 10^3/ul (0-0.8); ABS Neutrophils 7.6 10^3/ul (1.5-7.7); ABS Nucleated RBC 0 10^3/ul; Eosinophil % 0.3 %; Hematocrit 41 % (42-52); Lymphocyte % 14.5 %; Mean Corpuscular HGB Conc 34 g/dl (31-36); Mean Corpuscular Hemoglobin 30 pg (27-31); Mean Corpuscular Volume 88 fL (80-94); Mean Platelet Volume 6.9 fL (7.4-10.4); Nucleated Red Blood Cells % 0; Platelet Count 278 10^3/ul (150-450); Red Blood Count 4.64 10^6/ul (4.00-5.40); Red Cell Distribution Width 14 % (10.5-15); White Blood Count 10.5 10^3/ul (3.5-10.8)
[2018-11-05 09:59] LABS: Potassium 3.9 mmol/L (3.5-5.0)
[2018-11-05 10:21] LABS: Albumin 3.8 g/dL (3.2-5.2)
[2018-11-05 10:42] LABS: Albumin/Globulin Ratio 1.2 (1-3); BUN/Creatinine Ratio 31.5 (8-20); Calcium 9.5 mg/dL (8.6-10.3); EGFR Non-African American 104.5 (>60); Globulin 3.1 g/dL (2-4); Phosphorus 2.6 mg/dL (2.5-5.0); Total Bilirubin 0.7 mg/dL (0.2-1.0); Total Protein 6.9 g/dL (6.4-8.9)
[2018-11-05] MEDS: Cyclobenzaprine TAB* 10 MG PO PRN ×2 (13:04→20:40)
--- NOTE | 2018-11-05 16:15 | PN ---
Subjective Date of Service: 11/05/18 Interval History: Pt seen and examined. Meds and labs reviewed. CC: N/A ROS: Denied RMOO/dizziness, F/C, N/V, CP, SOB, increased cough, sputum production , abd pain, diarrhea, constipation, dysuria, myalgias, arthralgias, throat pain , and new skin lesions. The rest of the 14 point ROS are unremarkable. PHYSICAL EXAM: GEN APPEARANCE: Awake, not in acute distress HEENT: NC/AT, PERRLA, moist oral mucosa, (-) throat erythema NECK: Soft, supple, (-) cervical LAD, (-)JVD, w/neck collar in place w/ ABDIEL drain w/40cc of bloody fluid this AM HEART: S1S2 WNL, RRR, No MRG CHEST: CTA, BL, GAE, No W/R/R ABD: Soft, ND/NT, NABS 4x Q EXT: No C/C/E SKIN: Warm to touch PSYCH: No active psychosis, hallucinations, depression, SI/HI Family History: Unchanged from Admission Social History: Unchanged from Admission Past Medical History: Unchanged from Admission Objective Active Medications: Acetaminophen (Tylenol Tab*) 650 mg PO Q4H PRN PRN Reason: FEVER/PAIN Last Admin: 11/04/18 01:32 Dose: 650 mg Hydrocodone Bitart/Acetaminophen (Eva 5-325 Tab*) 2 tab PO Q4H PRN PRN Reason: PAIN Last Admin: 11/04/18 11:16 Dose: 1 tab Hydrocodone Bitart/Acetaminophen (Eva 5-325 Tab*) 1 tab PO Q4H PRN PRN Reason: PAIN Last Admin: 11/05/18 13:03 Dose: 1 tab Cyclobenzaprine HCl (Flexeril Tab*) 10 mg PO TID PRN PRN Reason: muscle spasm Last Admin: 11/05/18 13:04 Dose: 10 mg Diltiazem HCl (Cardizem Cd Cap*) 180 mg PO DAILY [facility] Last Admin: 11/05/18 08:15 Dose: 180 mg Docusate Sodium (Colace Cap*) 100 mg PO BID JN Last Admin: 11/05/18 08:15 Dose: 100 mg Famotidine (Pepcid Tab*) 40 mg PO BEDTIME [facility] Last Admin: 01/12/19 20:21 Dose: 40 mg Fluticasone Propionate (Flonase Nasal [place] 50mcg*) 2 spray BOTH NARES DAILY [facility] Last Admin: 11/05/18 08:15 Dose: 2 spray Glycerin (Glycerin Adult Supp*) 1 supp [place] DAILY PRN PRN Reason: CONSTIPATION Last Admin: 11/01/18 13:37 Dose: 1 supp Hydrocortisone (Hytone Cream 1%*) 1 applic TOPICAL QID [facility] Last Admin: 11/05/18 12:07 Dose: Not Given Magnesium Hydroxide (Milk Of Magnesia Liq*) 30 ml PO BID [facility] Last Admin: 11/05/18 08:14 Dose: 30 ml Magnesium Oxide (Magox 400 Tab*) 400 mg PO DAILY [facility] Last Admin: 11/05/18 08:15 Dose: 400 mg Melatonin (Melatonin) 3 mg PO BEDTIME PRN; Protocol PRN Reason: SLEEP Last Admin: 11/03/18 23:14 Dose: 3 mg Pantoprazole Sodium (Protonix Tab *) 40 mg PO BID [facility] Last Admin: 11/05/18 08:15 Dose: 40 mg Potassium Chloride (Klor Con Er Tab*) 10 meq PO DAILY [facility] Last Admin: 11/05/18 08:14 Dose: 10 meq Ropinirole HCl (Requip Tab*) 1 mg PO BEDTIME [facility] Last Admin: 11/04/18 20:21 Dose: 1 mg Senna (Senokot Tab*) 1 tab PO BEDTIME PRN PRN Reason: CONSTIPATION Sodium Chloride (Sodium Chloride 0.65% Nasal [place]*) 1 spray BOTH NARES Q4H PRN PRN Reason: nasal congestion Tamsulosin HCl (Flomax Cap*) 0.8 mg PO DAILY [facility] Last Admin: 11/05/18 08:14 Dose: 0.8 mg Throat Lozenges (Chloraseptic Holden*) 1 holden PO Q6H PRN PRN Reason: SORE THROAT Last Admin: 10/29/18 23:48 Dose: 1 holden Vital Signs - 8 hr 11/05/18 11/05/18 11/05/18 08:15 10:00 11:30 Temperature 97.6 F Pulse Rate 83 Respiratory 16 18 16 Rate Blood Pressure 139/74 (mmHg) O2 Sat by Pulse 93 Oximetry 11/05/18 11/05/18 13:03 13:04 Temperature Pulse Rate Respiratory 20 20 Rate Blood Pressure (mmHg) O2 Sat by Pulse Oximetry Oxygen Devices in Use Now: None Result Diagrams: 11/05/18 09:34 11/05/18 09:35 Diagnostic Imaging: . Assess/Plan/Problems-Billing Assessment: Mr. Oconnor is a 78 yo M with PMH of HTN, GERD, and BPH; who presented to the ED with c/o generalized weakness and was found to have new onset afib and high grade cervical myelopathy. - Patient Problems (1) Atrial fibrillation Current Visit: Yes Status: Acute Code(s): I48.91 - UNSPECIFIED ATRIAL FIBRILLATION SNOMED Code(s): 61482172 Comment: - New onset with initial spontaneous conversion to NSR 10/24/18, but seems to be paroxysmal - Remains off AC for surgery- POD # 2 for cervical decompression and fusion w/ arthrodesis @C3-4; C4-5, C5-6 and decompressive laminectomies - Per consult with Dr. Weinberg; he will f/u with Dr. Saenz at the [place] office at d/c; may start Eliquis POD #5 presuming hemodynamic stability post op ; currently still w/plenty of bloody fluid in ABDIEL drain at this time - Echo shows EF 55-60%, mild to moderate LVH, LV function is adequate - Continue diltiazem for rate control (2) Cervical myelopathy Current Visit: Yes Status: Acute Code(s): G95.9 - DISEASE OF SPINAL CORD, UNSPECIFIED SNOMED Code(s): 975454978 Comment: -Weakness 2/2 high grade cervical stenosis as noted in imaging -POD # 2 for neurosurgery: cervical fusion -Continue pain control -Per PT, progressing towards goals (3) BPH (benign prostatic hyperplasia) Current Visit: Yes Status: Acute Code(s): N40.0 - BENIGN PROSTATIC HYPERPLASIA WITHOUT LOWER URINRY TRACT SYMP SNOMED Code(s): 860259726 Comment: Continue tamsulosin (4) Hypertension Current Visit: Yes Status: Acute Code(s): I10 - ESSENTIAL (PRIMARY) HYPERTENSION SNOMED Code(s): 22191809 Comment: on cardizem d/c'ed home dose amlodipine since we started him on another CCB: cardizem (5) Restless legs syndrome (RLS) Current Visit: Yes Status: Acute Comment: Continue Requip 2 hours before bedtime (6) DVT prophylaxis Current Visit: Yes Status: Acute Code(s): UXY7321 - SNOMED Code(s): 914798929 Comment: SCD Status and Disposition: -Possible D/C home in AM per NeuroSx and will defer -No PT needs identified
[2018-11-05] MEDS: Melatonin 3 MG TAB PO PRN ×2 (20:36→20:44)
[2018-11-05] MEDS: Acetaminophen TAB* 325 MG PO PRN ×2 (20:37→20:38)
[2018-11-05] MEDS: Famotidine TAB* 20 MG PO SCH (20:39)
[2018-11-05] MEDS: rOPINIRole TAB* 1 MG PO SCH (20:48)
[2018-11-05] MEDS: Metoprolol Tartrate IV* 1 MG/ML 5 ML VIAL IV PRN (21:04)
[2018-11-06] MEDS: HYDROcodone/ACETAMIN 5-325 MG* 1 TAB PO PRN ×6 (00:03→17:54)
[2018-11-06 06:06] LABS: ABS Basophils 0.1 10^3/ul (0-0.2); ABS Eosinophils 0 10^3/ul (0-0.6); ABS Monocytes 1.1 10^3/ul (0-0.8); ABS Neutrophils 8.3 10^3/ul (1.5-7.7); ABS Nucleated RBC 0 10^3/ul; Eosinophil % 0.3 %; Hematocrit 41 % (42-52); Hemoglobin 13.9 g/dl (14.0-18.0); Lymphocyte % 9.7 %; Mean Corpuscular HGB Conc 34 g/dl (31-36); Mean Corpuscular Hemoglobin 30 pg (27-31); Mean Corpuscular Volume 89 fL (80-94); Mean Platelet Volume 7.1 fL (7.4-10.4); Nucleated Red Blood Cells % 0; Platelet Count 258 10^3/ul (150-450); Red Blood Count 4.63 10^6/ul (4.00-5.40); Red Cell Distribution Width 14 % (10.5-15); White Blood Count 10.5 10^3/ul (3.5-10.8)
[2018-11-06 06:30] LABS: Albumin 3.5 g/dL (3.2-5.2); Albumin/Globulin Ratio 1.2 (1-3); BUN/Creatinine Ratio 29.6 (8-20); Calcium 9.3 mg/dL (8.6-10.3); EGFR Non-African American 107.9 (>60); Magnesium 2.2 mg/dL (1.9-2.7); Phosphorus 3.5 mg/dL (2.5-5.0); Potassium 4.2 mmol/L (3.5-5.0); Total Bilirubin 0.8 mg/dL (0.2-1.0); Total Protein 6.5 g/dL (6.4-8.9)
[2018-11-06] MEDS: Pantoprazole TAB * 40 MG TAB PO SCH ×2 (06:32→17:11)
--- NOTE | 2018-11-06 08:13 | PN ---
Progress Note - Progress Note Date of Service: 11/06/18 SOAP: Subjective: [S/p posterior cervical decompression and fusion C3-6, POD #3. Pt was transferred to tele floor last night for a fib management. Pt reports severe pain throughout the night which is better controlled now. Working with physical therapy, ambulating with assistance of walker. Preop symptoms improving. Denies nausea, chest pain, difficulty breathing, headache. ] Objective: [ Vital Signs: Temp Pulse Resp BP Pulse Ox 97.4 F 95 18 126/75 95 11/06/18 07:16 11/06/18 07:16 11/06/18 07:20 11/06/18 07:16 11/06/18 07:16 General: Alert and sitting up in bed. No acute pain Neuro: Strength improved. Sensation intact. Hoffmans positive left. Incision: Intact and without swelling, tenderness, erythema. Drain discontinued today without complication Wound drain output 11/03/18 11/03/18 11/03/18 16:30 18:24 23:18 Output, ABDIEL #1 30 30 2 11/04/18 11/04/18 11/04/18 03:49 06:26 11:43 Output, ABDIEL #1 70 30 60 11/04/18 11/04/18 11/04/18 13:46 20:21 22:09 Output, ABDIEL #1 30 60 30 11/05/18 11/05/18 11/05/18 02:40 05:27 11:44 Output, ABDIEL #1 45 30 30 11/05/18 11/06/18 14:00 07:16 Output, ABDIEL #1 10 50 ] Assessment: [Stable post-op. Pain exacerbation overnight, better controlled now. ] Plan: [1. Possible DC home today or tomorrow if pain remains well controlled. 2. field operations farm manager to evaluate care needs at home]
[2018-11-06] MEDS: Diltiazem CD CAP* 120 MG PO SCH (09:29)
[2018-11-06] MEDS: Diltiazem CD CAP* 180 MG PO SCH ×2 (09:29→12:10)
[2018-11-06] MEDS: Tamsulosin CAP* 0.4 MG PO SCH (09:29)
[2018-11-06] MEDS: Potassium Chlor TAB* 10 MEQ TAB.ER PO SCH (09:29)
[2018-11-06] MEDS: Docusate CAP* 100 MG PO SCH ×2 (09:29→20:16)
[2018-11-06] MEDS: Magnesium Hydroxide LIQ* 30 ML UDC PO SCH ×2 (09:30→20:17)
[2018-11-06] MEDS: Hydrocortisone 1% CREAM* 30 GM TUBE TOPICAL SCH ×4 (09:31→20:18)
[2018-11-06] MEDS: Magnesium Oxide TAB* 400 MG PO SCH (09:31)
[2018-11-06] MEDS: Fluticasone NASAL SPRAY 50MCG* 16 gm SPRAY BTL BOTH NARES SCH (09:31)
[2018-11-06] MEDS ORDERED: Ondansetron INJ* 2 MG/ML VIAL ONE (12:27)
[2018-11-06] MEDS: Glycerin ADULT SUPP PR PRN (13:19)
--- NOTE | 2018-11-06 15:56 | PN ---
Subjective Date of Service: 11/06/18 Interval History: Pt seen and examined. Meds and labs reviewed. ABDIEL drain removed by NeuroSx this AM. Pt transferred to tele floor last night given [facility] policy of not being able to give PRN IV meds to control P. Afib w/mild RVR. On further eval, pt mentions that he was in significant pain last night that may have driven his tachycardia. Please see discussion below. CC: N/A ROS: Denied ROMO/dizziness, F/C, N/V, CP, SOB, increased cough, sputum production , abd pain, diarrhea, constipation, dysuria, myalgias, arthralgias, throat pain , and new skin lesions. The rest of the 14 point ROS are unremarkable. PHYSICAL EXAM: GEN APPEARANCE: Awake, not in acute distress HEENT: NC/AT, PERRLA, moist oral mucosa, (-) throat erythema NECK: Soft, supple, (-) cervical LAD, (-)JVD, w/neck collar in place HEART: S1S2 WNL, RRR, No MRG CHEST: CTA, BL, GAE, No W/R/R ABD: Soft, ND/NT, NABS 4x Q EXT: No C/C/E SKIN: Warm to touch PSYCH: No active psychosis, hallucinations, depression, SI/HI Family History: Unchanged from Admission Social History: Unchanged from Admission Past Medical History: Unchanged from Admission Objective Active Medications: Acetaminophen (Tylenol Tab*) 650 mg PO Q4H PRN PRN Reason: FEVER/PAIN Last Admin: 11/05/18 20:38 Dose: 650 mg Hydrocodone Bitart/Acetaminophen ([place] 5-325 Tab*) 2 tab PO Q4H PRN PRN Reason: PAIN Last Admin: 11/05/18 20:47 Dose: 2 tab Hydrocodone Bitart/Acetaminophen ([place] 5-325 Tab*) 1 tab PO Q3H PRN PRN Reason: PAIN Last Admin: 11/06/18 14:37 Dose: 1 tab Cyclobenzaprine HCl (Flexeril Tab*) 10 mg PO TID PRN PRN Reason: muscle spasm Last Admin: 11/05/18 20:40 Dose: 10 mg Diltiazem HCl (Cardizem Cd Cap*) 180 mg PO DAILY [facility] Last Admin: 11/06/18 09:29 Dose: 180 mg Diltiazem HCl (Cardizem Cd Cap*) 120 mg PO DAILY [facility] Last Admin: 11/06/18 09:29 Dose: 120 mg Docusate Sodium (Colace Cap*) 100 mg PO BID [facility] Last Admin: 11/06/18 09:29 Dose: 100 mg Famotidine (Pepcid Tab*) 40 mg PO BEDTIME [facility] Last Admin: 11/05/18 20:39 Dose: 40 mg Fluticasone Propionate (Flonase Nasal [place] 50mcg*) 2 spray BOTH NARES DAILY [facility] Last Admin: 11/06/18 09:31 Dose: 2 spray Glycerin (Glycerin Adult Supp*) 1 supp [place] DAILY PRN PRN Reason: CONSTIPATION Last Admin: 11/06/18 13:19 Dose: 1 supp Hydrocortisone (Hytone Cream 1%*) 1 applic TOPICAL QID [facility] Last Admin: 11/06/18 12:09 Dose: Not Given Magnesium Hydroxide (Milk Of Magnesia Liq*) 30 ml PO BID [facility] Last Admin: 11/06/18 09:30 Dose: 30 ml Magnesium Oxide (Magox 400 Tab*) 400 mg PO DAILY [facility] Last Admin: 11/06/18 09:31 Dose: 400 mg Melatonin (Melatonin) 3 mg PO BEDTIME PRN; Protocol PRN Reason: SLEEP Last Admin: 11/05/18 20:44 Dose: 3 mg Metoprolol Tartrate (Lopressor Iv*) 5 mg IV Q6H PRN PRN Reason: TACHYCARDIA Last Admin: 11/05/18 21:04 Dose: 5 mg Ondansetron HCl (Zofran Inj*) 4 mg IV Q4H PRN PRN Reason: NAUSEA Pantoprazole Sodium (Protonix Tab *) 40 mg PO BID [facility] Last Admin: 11/06/18 06:32 Dose: 40 mg Potassium Chloride (Klor Con Er Tab*) 10 meq PO DAILY [facility] Last Admin: 11/06/18 09:29 Dose: 10 meq Ropinirole HCl (Requip Tab*) 1 mg PO BEDTIME [facility] Last Admin: 11/05/18 20:48 Dose: 1 mg Senna (Senokot Tab*) 1 tab PO BEDTIME PRN PRN Reason: CONSTIPATION Sodium Chloride (Sodium Chloride 0.65% Nasal [place]*) 1 spray BOTH NARES Q4H PRN PRN Reason: nasal congestion Tamsulosin HCl (Flomax Cap*) 0.8 mg PO DAILY [facility] Last Admin: 11/06/18 09:29 Dose: 0.8 mg Throat Lozenges (Chloraseptic [place]*) 1 holden PO Q6H PRN PRN Reason: SORE THROAT Last Admin: 10/29/18 23:48 Dose: 1 holden Vital Signs - 8 hr 11/06/18 11/06/18 11/06/18 09:36 11:14 11:23 Temperature 97.3 F Pulse Rate 84 Respiratory 16 16 16 Rate Blood Pressure 127/71 (mmHg) O2 Sat by Pulse 95 Oximetry 11/06/18 14:37 Temperature Pulse Rate Respiratory 18 Rate Blood Pressure (mmHg) O2 Sat by Pulse Oximetry Oxygen Devices in Use Now: None Result Diagrams: 11/06/18 05:30 11/06/18 05:30 Diagnostic Imaging: . Assess/Plan/Problems-Billing Assessment: Mr. Oconnor is a 78 yo M with PMH of HTN, GERD, and BPH; who presented to the ED with c/o generalized weakness and was found to have new onset afib and high grade cervical myelopathy. - Patient Problems (1) Atrial fibrillation Current Visit: Yes Status: Acute Code(s): I48.91 - UNSPECIFIED ATRIAL FIBRILLATION SNOMED Code(s): 24870908 Comment: -Given HTN and mild tachycardia, increased Cardizem needs today -Continue watchful waiting and tele monitoring o/n to determine tolerance of above med change - New onset with initial spontaneous conversion to NSR 10/24/18, but seems to be paroxysmal - Remains off AC for surgery- POD # 3 for cervical decompression and fusion w/ arthrodesis @C3-4; C4-5, C5-6 and decompressive laminectomies - Per consult with Dr. Weinberg; he will f/u with Dr. Saenz at the [place] office at d/c; may start Eliquis POD #5 presuming hemodynamic stability post op ; currently still w/plenty of bloody fluid in ABDIEL drain at this time - Echo shows EF 55-60%, mild to moderate LVH, LV function is adequate - Continue diltiazem for rate control (2) Cervical myelopathy Current Visit: Yes Status: Acute Code(s): G95.9 - DISEASE OF SPINAL CORD, UNSPECIFIED SNOMED Code(s): 426513468 Comment: -Weakness 2/2 high grade cervical stenosis as noted in imaging -POD #3 for neurosurgery: cervical fusion -Continue pain control -Per PT, progressing towards goals (3) BPH (benign prostatic hyperplasia) Current Visit: Yes Status: Acute Code(s): N40.0 - BENIGN PROSTATIC HYPERPLASIA WITHOUT LOWER URINRY TRACT SYMP SNOMED Code(s): 045023549 Comment: Continue tamsulosin (4) Hypertension Current Visit: Yes Status: Acute Code(s): I10 - ESSENTIAL (PRIMARY) HYPERTENSION SNOMED Code(s): 58694357 Comment: -Better controlled with recent increase in Cardizem as discussed above d/c'ed home dose amlodipine since we started him on another CCB: cardizem (5) Restless legs syndrome (RLS) Current Visit: Yes Status: Acute Comment: Continue Requip 2 hours before bedtime (6) DVT prophylaxis Current Visit: Yes Status: Acute Code(s): URT2859 - SNOMED Code(s): 659315434 Comment: SCD Status and Disposition: -Possible D/C home in AM per NeuroSx and will defer -No PT needs identified
--- NOTE | 2018-11-06 20:05 | PN ---
Progress Note - Progress Note Date of Service: 11/06/18 SOAP: Subjective: []No events ON. Tolerates PO well, Voids, Ambulates with walker. Pain better controlled now. Feels that his dextrerity is improving. Episode of Afib, transferred to 4th floor. Objective: []VSS, Afebrile. MJ collar Wound s,c,d. AAOx3 SHELBIE, CN II-XII grossly intact, decreased hearing bilaterally. Motor 4-5/5 all extremities. Patient has increased generalized tone and mild contraction of his fingers. Decreased ROM of thais shoulders. Sensory grossly intact to light touch. DTR +4 bilateraly, Bab +/- thais, Clonus positive thais, Jim's positive thais. Assessment: []78 yom Afib, severe cervical spondylotic myelopathy, POD#3 PCDF C3-6 Plan: []Monitor VS, Neurochecks. Encourage ambulation. collar XR revealed good placement of hardware, good alignment of C spine. IS PT DC planning. May DC when ok with IM. Follow up in office 7-10 days postop. No lifting, no bending, no driving. Keep incision dry for 2 days May Shower. No baths. May start SQ heparin on POD#5 Would recommend holding Eloquis for at least 7 days or longer if medically safe. Appreciate IM, cardiology care. Stephy Pickett MD
[2018-11-06] MEDS: Acetaminophen TAB* 325 MG PO PRN (20:15)
[2018-11-06] MEDS: rOPINIRole TAB* 1 MG PO SCH (20:16)
[2018-11-06] MEDS: Famotidine TAB* 20 MG PO SCH (20:16)
[2018-11-06] MEDS: Ondansetron INJ* 2 MG/ML VIAL IV PRN (22:57)
[2018-11-07] MEDS: HYDROcodone/ACETAMIN 5-325 MG* 1 TAB PO PRN ×4 (00:09→21:36)
[2018-11-07 06:07] LABS: ABS Basophils 0 10^3/ul (0-0.2); ABS Eosinophils 0 10^3/ul (0-0.6); ABS Lymphocytes 0.5 10^3/ul (1.0-4.8); ABS Monocytes 0.7 10^3/ul (0-0.8); ABS Neutrophils 4.9 10^3/ul (1.5-7.7); ABS Nucleated RBC 0 10^3/ul; Eosinophil % 0.5 %; Hematocrit 38 % (42-52); Hemoglobin 12.9 g/dl (14.0-18.0); Lymphocyte % 7.7 %; Mean Corpuscular HGB Conc 34 g/dl (31-36); Mean Corpuscular Hemoglobin 30 pg (27-31); Mean Corpuscular Volume 89 fL (80-94); Mean Platelet Volume 7.4 fL (7.4-10.4); Nucleated Red Blood Cells % 0; Platelet Count 220 10^3/ul (150-450); Red Cell Distribution Width 14 % (10.5-15); White Blood Count 6.2 10^3/ul (3.5-10.8)
[2018-11-07 06:24] LABS: BUN/Creatinine Ratio 29.2 (8-20); Calcium 9.3 mg/dL (8.6-10.3); EGFR Non-African American 106.1 (>60); Potassium 4.3 mmol/L (3.5-5.0)
[2018-11-07] MEDS: Ondansetron INJ* 2 MG/ML VIAL IV PRN (08:05)
[2018-11-07] MEDS: Hydrocortisone 1% CREAM* 30 GM TUBE TOPICAL SCH ×4 (08:06→21:39)
[2018-11-07] MEDS: Fluticasone NASAL SPRAY 50MCG* 16 gm SPRAY BTL BOTH NARES SCH (08:06)
[2018-11-07] MEDS: Magnesium Oxide TAB* 400 MG PO SCH (08:07)
[2018-11-07] MEDS: Tamsulosin CAP* 0.4 MG PO SCH (08:07)
[2018-11-07] MEDS: Docusate CAP* 100 MG PO SCH ×2 (08:07→21:32)
[2018-11-07] MEDS: Pantoprazole TAB * 40 MG TAB PO SCH ×2 (08:07→16:00)
[2018-11-07] MEDS: Potassium Chlor TAB* 10 MEQ TAB.ER PO SCH (08:07)
[2018-11-07] MEDS: Magnesium Hydroxide LIQ* 30 ML UDC PO SCH ×2 (08:08→21:33)
[2018-11-07] MEDS: Diltiazem CD CAP* 120 MG PO SCH (08:40)
[2018-11-07] MEDS: Diltiazem CD CAP* 180 MG PO SCH (08:40)
--- NOTE | 2018-11-07 12:50 | PN ---
Subjective Date of Service: 11/07/18 Interval History: Patient seen today. He did have left jaw pain coincides with going into afib. Rate controlled at 88 bpm. Denies any chest pain or shortness of breath. His sodium today dropped to 129. Available records noted reviewed. Potential discharge to swing bed once medically stable. I reviewed Neurosurgery note. Cleared for discharge. From cardiology point of view he is to follow up with Dr. Saenz at [facility] outpatient. Patient is taking po well. Pain controlled. no fever or chills. No active bleed Family History: Unchanged from Admission Social History: Unchanged from Admission Objective Active Medications: Acetaminophen (Tylenol Tab*) 650 mg PO Q4H PRN PRN Reason: FEVER/PAIN Last Admin: 11/06/18 20:15 Dose: 650 mg Hydrocodone Bitart/Acetaminophen ([place] 5-325 Tab*) 2 tab PO Q4H PRN PRN Reason: PAIN Last Admin: 11/07/18 04:23 Dose: 2 tab Hydrocodone Bitart/Acetaminophen ([place] 5-325 Tab*) 1 tab PO Q3H PRN PRN Reason: PAIN Last Admin: 11/06/18 14:37 Dose: 1 tab Cyclobenzaprine HCl (Flexeril Tab*) 10 mg PO TID PRN PRN Reason: muscle spasm Last Admin: 11/05/18 20:40 Dose: 10 mg Diltiazem HCl (Cardizem Cd Cap*) 180 mg PO DAILY [facility] Last Admin: 11/07/18 08:40 Dose: 180 mg Diltiazem HCl (Cardizem Cd Cap*) 120 mg PO DAILY [facility] Last Admin: 11/07/18 08:40 Dose: 120 mg Docusate Sodium (Colace Cap*) 100 mg PO BID [facility] Last Admin: 11/07/18 08:07 Dose: 100 mg Famotidine (Pepcid Tab*) 40 mg PO BEDTIME [facility] Last Admin: 11/06/18 20:16 Dose: 40 mg Fluticasone Propionate (Flonase Nasal [place] 50mcg*) 2 spray BOTH NARES DAILY [facility] Last Admin: 11/07/18 08:06 Dose: 2 spray Glycerin (Glycerin Adult Supp*) 1 supp [place] DAILY PRN PRN Reason: CONSTIPATION Last Admin: 11/06/18 13:19 Dose: 1 supp Hydrocortisone (Hytone Cream 1%*) 1 applic TOPICAL QID [facility] Last Admin: 11/07/18 12:12 Dose: Not Given Magnesium Hydroxide (Milk Of Magnesia Liq*) 30 ml PO BID [facility] Last Admin: 11/07/18 08:08 Dose: Not Given Magnesium Oxide (Magox 400 Tab*) 400 mg PO DAILY [facility] Last Admin: 11/07/18 08:07 Dose: 400 mg Melatonin (Melatonin) 3 mg PO BEDTIME PRN; Protocol PRN Reason: SLEEP Last Admin: 11/05/18 20:44 Dose: 3 mg Metoprolol Tartrate (Lopressor Iv*) 5 mg IV Q6H PRN PRN Reason: TACHYCARDIA Last Admin: 11/05/18 21:04 Dose: 5 mg Ondansetron HCl (Zofran Inj*) 4 mg IV Q4H PRN PRN Reason: NAUSEA Last Admin: 11/07/18 08:05 Dose: 4 mg Pantoprazole Sodium (Protonix Tab *) 40 mg PO BID [facility] Last Admin: 11/07/18 08:07 Dose: 40 mg Potassium Chloride (Klor Con Er Tab*) 10 meq PO DAILY [facility] Last Admin: 11/07/18 08:07 Dose: 10 meq Ropinirole HCl (Requip Tab*) 1 mg PO BEDTIME [facility] Last Admin: 11/06/18 20:16 Dose: 1 mg Senna (Senokot Tab*) 1 tab PO BEDTIME PRN PRN Reason: CONSTIPATION Sodium Chloride (Sodium Chloride 0.65% Nasal [place]*) 1 spray BOTH NARES Q4H PRN PRN Reason: nasal congestion Tamsulosin HCl (Flomax Cap*) 0.8 mg PO DAILY [facility] Last Admin: 11/07/18 08:07 Dose: 0.8 mg Throat Lozenges (Chloraseptic [place]*) 1 karolina PO Q6H PRN PRN Reason: SORE THROAT Last Admin: 10/29/18 23:48 Dose: 1 karolina Vital Signs - 8 hr 11/07/18 11/07/18 11/07/18 07:05 07:20 07:33 Temperature 97.6 F Pulse Rate 67 Respiratory 18 20 18 Rate Blood Pressure 130/72 (mmHg) O2 Sat by Pulse 92 Oximetry 11/07/18 11:24 Temperature 98.2 F Pulse Rate 103 Respiratory 20 Rate Blood Pressure 118/77 (mmHg) O2 Sat by Pulse 91 Oximetry Oxygen Devices in Use Now: None Appearance: Awake, Alert, no acute distress. Eyes: No Scleral Icterus, PERRLA Ears/Nose/Mouth/Throat: NL Teeth, Lips, Gums, Mucous Membranes Moist, - - Cervical neck MJ collar in place Neck: NL Appearance and Movements; NL JVP, Trachea Midline Respiratory: Symmetrical Chest Expansion and Respiratory Effort, Clear to Auscultation Cardiovascular: NL Sounds; No Murmurs; No JVD, No Edema, - - irregularly irregular Abdominal: NL Sounds; No Tenderness; No Distention Extremities: No Edema, No Clubbing, Cyanosis Skin: No Rash or Ulcers Neurological: Alert and Oriented x 3 Result Diagrams: 11/07/18 05:42 11/07/18 05:42 Diagnostic Imaging: . Assess/Plan/Problems-Billing Assessment: Mr. Oconnor is a 78 yo M with PMH of HTN, GERD, and BPH; who presented to the ED with c/o generalized weakness and was found to have new onset afib and high grade cervical myelopathy s/p PCDF C3-6 - Patient Problems (1) Cervical myelopathy Current Visit: Yes Status: Acute Code(s): G95.9 - DISEASE OF SPINAL CORD, UNSPECIFIED SNOMED Code(s): 910458103 Comment: -Weakness 2/2 high grade cervical stenosis as noted in imaging -POD #4 for neurosurgery: cervical fusion -Continue pain control -Per PT, progressing towards goals (2) Atrial fibrillation Current Visit: Yes Status: Acute Code(s): I48.91 - UNSPECIFIED ATRIAL FIBRILLATION SNOMED Code(s): 09527774 Comment: - Paroxysmal. Rate controlled today on Cardizem 180 mg daily - Continue watchful waiting and tele monitoring o/n to determine tolerance of above med change - Remains off AC for surgery- POD # 4 for cervical decompression and fusion w/ arthrodesis @C3-4; C4-5, C5-6 and decompressive laminectomies - Per consult with Dr. Weinberg; he will f/u with Dr. 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 (129 today on 11/07/17) - I advised to limit fluid/Water intake\- Recheck in am BMP if negative will be cleared for discharge in am (4) GERD (gastroesophageal reflux disease) Current Visit: Yes Status: Acute Code(s): K21.9 - GASTRO-ESOPHAGEAL REFLUX DISEASE WITHOUT ESOPHAGITIS SNOMED Code(s): 791120860 Comment: - On famotidine 40 mg HS and pantoprazole 40 mg bid (5) Hyperlipidemia Current Visit: Yes Status: Acute Code(s): E78.5 - HYPERLIPIDEMIA, UNSPECIFIED SNOMED Code(s): 46041869 Comment: - Resume fenofibrate upon discharge (6) BPH (benign prostatic hyperplasia) Current Visit: Yes Status: Acute Code(s): N40.0 - BENIGN PROSTATIC HYPERPLASIA WITHOUT LOWER URINRY TRACT SYMP SNOMED Code(s): 206180001 Comment: Continue tamsulosin (7) Hypertension Current Visit: Yes Status: Acute Code(s): I10 - ESSENTIAL (PRIMARY) HYPERTENSION SNOMED Code(s): 04997781 Comment: -Better controlled with recent increase in Cardizem as discussed above d/c'ed home dose amlodipine since we started him on another CCB: cardizem (8) Restless legs syndrome (RLS) Current Visit: Yes Status: Acute Comment: Continue Requip 2 hours before bedtime (9) DVT prophylaxis Current Visit: Yes Status: Acute Code(s): VOH4624 - SNOMED Code(s): 636945878 Comment: - SCD - Hep SQ starting Day # 5 - Eliquis starting Day # 7-8 Status and Disposition: -Possible D/C home in AM per NeuroSx and will defer -No PT needs identified
--- NOTE | 2018-11-07 13:01 | PN ---
Hospitalist Progress Note Date of Service: 11/07/18 Patient developed left jaw pain this afternoon and it coincided with the rhythm converted back into afib. also he was sat up for lunch which could have been due to left cervical pain from the MJ collar. - Will keep on tele. - Stat EKG and troponin q 6hrs clinically appears comfortable.
--- NOTE | 2018-11-07 15:57 | PN ---
Progress Note - Progress Note Date of Service: 11/07/18 SOAP: Subjective: [S/p posterior cervical decompression and fusion C3-6, POD #4 Feeling well today, pain controlled with PO meds Denies chills, nausea, headache Working with PT, ambulating with walker Reports improvement in UE, tingling in fingers persistent] Objective: [Vital Signs: Temp Pulse Resp BP Pulse Ox 98.1 F 103 18 122/67 93 11/07/18 15:11 11/07/18 11:24 11/07/18 15:17 11/07/18 15:11 11/07/18 15:11 General: Alert and NAD, sitting up in bed. MJ collar in place Neuro: Motor 5/5, sensation intact. Incision: Intact and without swelling, tenderness. Assessment: [Satisfactory post-op.] Plan: [1. Clear from neurosurgery for dc when medically stable 2. Continue PT, pain management 3. Encourage ambulation]
[2018-11-07] MEDS: Famotidine TAB* 20 MG PO SCH (21:32)
[2018-11-07] MEDS: rOPINIRole TAB* 1 MG PO SCH (21:33)
[2018-11-08] MEDS: HYDROcodone/ACETAMIN 5-325 MG* 1 TAB PO PRN ×3 (01:39→20:53)
[2018-11-08 06:15] LABS: ABS Basophils 0 10^3/ul (0-0.2); ABS Eosinophils 0.2 10^3/ul (0-0.6); ABS Lymphocytes 1.2 10^3/ul (1.0-4.8); ABS Monocytes 1.2 10^3/ul (0-0.8); ABS Nucleated RBC 0 10^3/ul; Eosinophil % 2.6 %; Hematocrit 43 % (42-52); Hemoglobin 14.2 g/dl (14.0-18.0); Mean Corpuscular HGB Conc 33 g/dl (31-36); Mean Corpuscular Hemoglobin 30 pg (27-31); Mean Corpuscular Volume 89 fL (80-94); Mean Platelet Volume 6.9 fL (7.4-10.4); Nucleated Red Blood Cells % 0; Platelet Count 278 10^3/ul (150-450); Red Cell Distribution Width 14 % (10.5-15); White Blood Count 6.7 10^3/ul (3.5-10.8)
[2018-11-08 06:30] LABS: BUN/Creatinine Ratio 23.4 (8-20); Calcium 9.6 mg/dL (8.6-10.3); EGFR Non-African American 98.2 (>60); Magnesium 1.9 mg/dL (1.9-2.7); Phosphorus 3.9 mg/dL (2.5-5.0); Potassium 4.3 mmol/L (3.5-5.0)
[2018-11-08] MEDS: Pantoprazole TAB * 40 MG TAB PO SCH ×2 (07:46→16:13)
[2018-11-08] MEDS: Magnesium Oxide TAB* 400 MG PO SCH (07:46)
[2018-11-08] MEDS: Docusate CAP* 100 MG PO SCH ×2 (07:46→20:52)
[2018-11-08] MEDS: Potassium Chlor TAB* 10 MEQ TAB.ER PO SCH (07:46)
[2018-11-08] MEDS: Diltiazem CD CAP* 120 MG PO SCH (07:46)
[2018-11-08] MEDS: Diltiazem CD CAP* 180 MG PO SCH (07:46)
[2018-11-08] MEDS: Tamsulosin CAP* 0.4 MG PO SCH (07:46)
[2018-11-08] MEDS: Fluticasone NASAL SPRAY 50MCG* 16 gm SPRAY BTL BOTH NARES SCH (07:47)
[2018-11-08] MEDS: Hydrocortisone 1% CREAM* 30 GM TUBE TOPICAL SCH ×4 (07:47→20:56)
[2018-11-08] MEDS: Magnesium Hydroxide LIQ* 30 ML UDC PO SCH ×2 (07:48→20:56)
[2018-11-08] MEDS: Metoprolol Tartrate IV* 1 MG/ML 5 ML VIAL IV PRN (09:41)
--- NOTE | 2018-11-08 15:49 | PN ---
Subjective Date of Service: 11/08/18 Interval History: Patient awake, alert. no distress. doing well. no fever or chills. Awaiting transfer versus home discharge. potentially discharge on tuesday. No acute events. Remain in aflutter today. rate controlled Family History: Unchanged from Admission Social History: Unchanged from Admission Past Medical History: Unchanged from Admission Objective Active Medications: Acetaminophen (Tylenol Tab*) 650 mg PO Q4H PRN PRN Reason: FEVER/PAIN Last Admin: 11/06/18 20:15 Dose: 650 mg Hydrocodone Bitart/Acetaminophen ([place] 5-325 Tab*) 2 tab PO Q4H PRN PRN Reason: PAIN Last Admin: 11/08/18 13:38 Dose: 2 tab Hydrocodone Bitart/Acetaminophen ([place] 5-325 Tab*) 1 tab PO Q3H PRN PRN Reason: PAIN Last Admin: 11/07/18 21:36 Dose: 1 tab Cyclobenzaprine HCl (Flexeril Tab*) 10 mg PO TID PRN PRN Reason: muscle spasm Last Admin: 11/05/18 20:40 Dose: 10 mg Diltiazem HCl (Cardizem Cd Cap*) 180 mg PO DAILY [facility] Last Admin: 11/08/18 07:46 Dose: 180 mg Diltiazem HCl (Cardizem Cd Cap*) 120 mg PO DAILY [facility] Last Admin: 11/08/18 07:46 Dose: 120 mg Docusate Sodium (Colace Cap*) 100 mg PO BID [facility] Last Admin: 11/08/18 07:46 Dose: 100 mg Famotidine (Pepcid Tab*) 40 mg PO BEDTIME [facility] Last Admin: 11/07/18 21:32 Dose: 40 mg Fluticasone Propionate (Flonase Nasal [place] 50mcg*) 2 spray BOTH NARES DAILY [facility] Last Admin: 11/08/18 07:47 Dose: Not Given Glycerin (Glycerin Adult Supp*) 1 supp [place] DAILY PRN PRN Reason: CONSTIPATION Last Admin: 11/06/18 13:19 Dose: 1 supp Heparin Sodium (Porcine) (Heparin Vial(*)) 5,000 units SUBCUT Q8HR [facility] Hydrocortisone (Hytone Cream 1%*) 1 applic TOPICAL QID [facility] Last Admin: 11/08/18 12:11 Dose: Not Given Magnesium Hydroxide (Milk Of Magnesia Liq*) 30 ml PO BID [facility] Last Admin: 11/08/18 07:48 Dose: 30 ml Magnesium Oxide (Magox 400 Tab*) 400 mg PO DAILY [facility] Last Admin: 11/08/18 07:46 Dose: 400 mg Melatonin (Melatonin) 3 mg PO BEDTIME PRN; Protocol PRN Reason: SLEEP Last Admin: 11/05/18 20:44 Dose: 3 mg Metoprolol Tartrate (Lopressor Iv*) 5 mg IV Q6H PRN PRN Reason: TACHYCARDIA Last Admin: 11/08/18 09:41 Dose: 5 mg Ondansetron HCl (Zofran Inj*) 4 mg IV Q4H PRN PRN Reason: NAUSEA Last Admin: 11/07/18 08:05 Dose: 4 mg Pantoprazole Sodium (Protonix Tab *) 40 mg PO BID [facility] Last Admin: 11/08/18 07:46 Dose: 40 mg Potassium Chloride (Klor Con Er Tab*) 10 meq PO DAILY [facility] Last Admin: 11/08/18 07:46 Dose: 10 meq Ropinirole HCl (Requip Tab*) 1 mg PO BEDTIME [facility] Last Admin: 11/07/18 21:33 Dose: 1 mg Senna (Senokot Tab*) 1 tab PO BEDTIME PRN PRN Reason: CONSTIPATION Sodium Chloride (Sodium Chloride 0.65% Nasal [place]*) 1 spray BOTH NARES Q4H PRN PRN Reason: nasal congestion Tamsulosin HCl (Flomax Cap*) 0.8 mg PO DAILY [facility] Last Admin: 11/08/18 07:46 Dose: 0.8 mg Throat Lozenges (Chloraseptic Karolina*) 1 karolina PO Q6H PRN PRN Reason: SORE THROAT Last Admin: 10/29/18 23:48 Dose: 1 karolina Vital Signs - 8 hr 11/08/18 11/08/18 11/08/18 11:18 13:38 15:19 Temperature 97.7 F Pulse Rate 70 Respiratory 20 18 16 Rate Blood Pressure 118/71 (mmHg) O2 Sat by Pulse 95 Oximetry Oxygen Devices in Use Now: None Appearance: Awake, alert. no distress Eyes: No Scleral Icterus, - - EOMI Ears/Nose/Mouth/Throat: NL Teeth, Lips, Gums, Mucous Membranes Moist Neck: NL Appearance and Movements; NL JVP, - - Cervical neck MJ collar in place Respiratory: Symmetrical Chest Expansion and Respiratory Effort, Clear to Auscultation Cardiovascular: NL Sounds; No Murmurs; No JVD, RRR Abdominal: NL Sounds; No Tenderness; No Distention Extremities: No Edema Skin: No Rash or Ulcers Neurological: Alert and Oriented x 3, NL Muscle Strength and Tone Result Diagrams: 11/08/18 06:02 11/08/18 06:02 Diagnostic Imaging: . Assess/Plan/Problems-Billing Assessment: Mr. Oconnor is a 78 yo M with PMH of HTN, GERD, and BPH; who presented to the ED with c/o generalized weakness and was found to have new onset afib and high grade cervical myelopathy s/p PCDF C3-6 - Patient Problems (1) Cervical myelopathy Current Visit: Yes Status: Acute Code(s): G95.9 - DISEASE OF SPINAL CORD, UNSPECIFIED SNOMED Code(s): 605520866 Comment: -Weakness 2/2 high grade cervical stenosis as noted in imaging -POD #5 for neurosurgery: cervical fusion -Continue pain control -Per PT, progressing towards goals (2) Atrial fibrillation Current Visit: Yes Status: Acute Code(s): I48.91 - UNSPECIFIED ATRIAL FIBRILLATION SNOMED Code(s): 19822437 Comment: - Paroxysmal. Rate controlled today on Cardizem 180 mg daily - Continue watchful waiting and tele monitoring o/n to determine tolerance of above med change - Remains off AC for surgery- POD # 5 for cervical decompression and fusion w/ arthrodesis @C3-4; C4-5, C5-6 and decompressive laminectomies - Per consult with Dr. Weinberg; he will f/u with Dr. Saenz at the [place] office at d/c; may start Eliquis POD #7 (as per neurosurgery) presuming hemodynamic stability post op; - Echo shows EF 55-60%, mild to moderate LVH, LV function is adequate - Continue diltiazem for rate control (3) Hyponatremia Current Visit: Yes Status: Acute Code(s): E87.1 - HYPO-OSMOLALITY AND HYPONATREMIA SNOMED Code(s): 07190809 Comment: - Improving Sodium at 131 today. 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 (129 today on 11/07/17) - I advised to limit fluid/Water intake (4) GERD (gastroesophageal reflux disease) Current Visit: Yes Status: Acute Code(s): K21.9 - GASTRO-ESOPHAGEAL REFLUX DISEASE WITHOUT ESOPHAGITIS SNOMED Code(s): 812234548 Comment: - On famotidine 40 mg HS and pantoprazole 40 mg bid (5) Hyperlipidemia Current Visit: Yes Status: Acute Code(s): E78.5 - HYPERLIPIDEMIA, UNSPECIFIED SNOMED Code(s): 69223565 Comment: - Resume fenofibrate upon discharge (6) BPH (benign prostatic hyperplasia) Current Visit: Yes Status: Acute Code(s): N40.0 - BENIGN PROSTATIC HYPERPLASIA WITHOUT LOWER URINRY TRACT SYMP SNOMED Code(s): 152614719 Comment: Continue tamsulosin (7) Hypertension Current Visit: Yes Status: Acute Code(s): I10 - ESSENTIAL (PRIMARY) HYPERTENSION SNOMED Code(s): 52490602 Comment: -Better controlled with recent increase in Cardizem as discussed above d/c'ed home dose amlodipine since we started him on another CCB: cardizem (8) Restless legs syndrome (RLS) Current Visit: Yes Status: Acute Comment: Continue Requip 2 hours before bedtime (9) DVT prophylaxis Current Visit: Yes Status: Acute Code(s): PGH2180 - SNOMED Code(s): 982249721 Comment: - SCD - Hep SQ starting Day # 5 - Eliquis starting Day # 7 Status and Disposition: -Possible D/C home in AM per NeuroSx and will defer -No PT needs identified
[2018-11-08 16:08] LABS: ABS Basophils 0 10^3/ul (0-0.2); ABS Eosinophils 0.1 10^3/ul (0-0.6); ABS Lymphocytes 0.7 10^3/ul (1.0-4.8); ABS Monocytes 1.1 10^3/ul (0-0.8); ABS Neutrophils 5.3 10^3/ul (1.5-7.7); ABS Nucleated RBC 0 10^3/ul; Eosinophil % 1.1 %; Hematocrit 39 % (42-52); Hemoglobin 13.1 g/dl (14.0-18.0); Mean Corpuscular HGB Conc 34 g/dl (31-36); Mean Corpuscular Hemoglobin 30 pg (27-31); Mean Corpuscular Volume 89 fL (80-94); Mean Platelet Volume 7.2 fL (7.4-10.4); Nucleated Red Blood Cells % 0; Platelet Count 271 10^3/ul (150-450); Red Blood Count 4.35 10^6/ul (4.00-5.40); Red Cell Distribution Width 14 % (10.5-15); White Blood Count 7.3 10^3/ul (3.5-10.8)
[2018-11-08 16:29] LABS: EGFR Non-African American 96.8 (>60)
[2018-11-08 18:49] LABS: Activated Partial Thrombo Time 28.4 seconds (26.0-36.3); INR 1.09 (0.77-1.02)
[2018-11-08] MEDS: Famotidine TAB* 20 MG PO SCH (20:52)
[2018-11-08] MEDS: rOPINIRole TAB* 1 MG PO SCH (20:53)
[2018-11-08] MEDS: Heparin VIAL(*) 5000 UNITS/ML VIAL (FIVE THOUSAND) SUBCUT SCH (20:54)
[2018-11-09] MEDS: Pantoprazole TAB * 40 MG TAB PO SCH ×2 (06:27→16:15)
[2018-11-09] MEDS: Heparin VIAL(*) 5000 UNITS/ML VIAL (FIVE THOUSAND) SUBCUT SCH ×3 (06:27→20:56)
[2018-11-09] MEDS: Fluticasone NASAL SPRAY 50MCG* 16 gm SPRAY BTL BOTH NARES SCH (08:57)
[2018-11-09] MEDS: Docusate CAP* 100 MG PO SCH ×2 (08:58→20:57)
[2018-11-09] MEDS: Diltiazem CD CAP* 120 MG PO SCH (08:58)
[2018-11-09] MEDS: Diltiazem CD CAP* 180 MG PO SCH (08:58)
[2018-11-09] MEDS: Tamsulosin CAP* 0.4 MG PO SCH (08:59)
[2018-11-09] MEDS: Magnesium Oxide TAB* 400 MG PO SCH (09:00)
[2018-11-09] MEDS: Potassium Chlor TAB* 10 MEQ TAB.ER PO SCH (09:00)
[2018-11-09] MEDS: HYDROcodone/ACETAMIN 5-325 MG* 1 TAB PO PRN ×3 (09:00→20:57)
[2018-11-09] MEDS: Hydrocortisone 1% CREAM* 30 GM TUBE TOPICAL SCH ×4 (09:02→20:57)
[2018-11-09] MEDS: Magnesium Hydroxide LIQ* 30 ML UDC PO SCH ×2 (09:02→20:57)
[2018-11-09 10:12] LABS: BUN/Creatinine Ratio 23.5 (8-20); Calcium 9.4 mg/dL (8.6-10.3); EGFR Non-African American 92.6 (>60)
--- NOTE | 2018-11-09 18:58 | PN ---
Progress Note - Progress Note Date of Service: 11/09/18 SOAP: Subjective: []No events ON. Tolerates PO well, Voids, Ambulates with walker. Dextrerity is improving. Wants to go home. Did not qualify for rehab. Objective: []VSS, Afebrile. MJ collar Wound s,c,d. AAOx3 SHELBIE, CN II-XII grossly intact, decreased hearing bilaterally. Motor 4-5/5 all extremities. Sensory grossly intact to light touch. DTR +4 bilateraly, Bab +/- thais, Clonus positive thais, Jim's positive thais. Assessment: []78 yom Afib, severe cervical spondylotic myelopathy, POD#6 PCDF C3-6 Plan: [] Monitor VS, Neurochecks. Encourage ambulation. MJ collar IS PT DC planning. May DC when ok with IM. Follow up in office 7-10 days postop. No lifting, no bending, no driving. Keep incision dry for 2 days May Shower. No baths. Discussed with Dr Zeng regarding postop anticoagulation. Would agree with SQ heparin starting POD#5, patient already on. Unfortunately, it may not be feasible to continue at home and discussed possibility of PO anticoagulation such as Eliquis or Pradaxa. Discussed with patient regarding options and risk and benefits of anticoagulation. Patient understands that anticoagulation may increase the risk of postoperative bleeding and hematoma formation with paralysis and . He is in agreement to start anticoagulation understanding the above risks. Appreciate IM, cardiology care. Stephy Pickett MD
--- NOTE | 2018-11-09 19:33 | PN ---
Subjective Date of Service: 11/09/18 Interval History: Patient seen today. I was able to discuss with neurosurgery in details their concerns regarding full dose anticoagulation. Despite being 7 days out from surgery, neurosurgery at still concerned about starting oral anticoagulations. They do prefer SQ heparin with less risk of bleed. I did speak to patient and he is willing to go live with his sister for temporary and his sister is willing to come tomorrow to learn heparin SQ TID. If this occurs than will discharge him on heparin SQ Q 8hrs for a week and than transition to oral pradaxa or eliquis. If she can not than will discharge on pradaxa 75 mg bid. Social History: Unchanged from Admission Past Medical History: Unchanged from Admission Objective Active Medications: Acetaminophen (Tylenol Tab*) 650 mg PO Q4H PRN PRN Reason: FEVER/PAIN Last Admin: 11/06/18 20:15 Dose: 650 mg Hydrocodone Bitart/Acetaminophen ([place] 5-325 Tab*) 2 tab PO Q4H PRN PRN Reason: PAIN Last Admin: 11/09/18 09:00 Dose: 2 tab Hydrocodone Bitart/Acetaminophen ([place] 5-325 Tab*) 1 tab PO Q3H PRN PRN Reason: PAIN Last Admin: 11/09/18 16:14 Dose: 1 tab Cyclobenzaprine HCl (Flexeril Tab*) 10 mg PO TID PRN PRN Reason: muscle spasm Last Admin: 11/05/18 20:40 Dose: 10 mg Diltiazem HCl (Cardizem Cd Cap*) 180 mg PO DAILY [facility] Last Admin: 11/09/18 08:58 Dose: 180 mg Diltiazem HCl (Cardizem Cd Cap*) 120 mg PO DAILY [facility] Last Admin: 11/09/18 08:58 Dose: 120 mg Docusate Sodium (Colace Cap*) 100 mg PO BID [facility] Last Admin: 11/09/18 08:58 Dose: 100 mg Famotidine (Pepcid Tab*) 40 mg PO BEDTIME [facility] Last Admin: 11/08/18 20:52 Dose: 40 mg Fluticasone Propionate (Flonase Nasal [place] 50mcg*) 2 spray BOTH NARES DAILY [facility] Last Admin: 11/09/18 08:57 Dose: 2 spray Glycerin (Glycerin Adult Supp*) 1 supp SC DAILY PRN PRN Reason: CONSTIPATION Last Admin: 11/06/18 13:19 Dose: 1 supp Heparin Sodium (Porcine) (Heparin Vial(*)) 5,000 units SUBCUT Q8HR [facility] Last Admin: 11/09/18 14:25 Dose: 5,000 units Hydrocortisone (Hytone Cream 1%*) 1 applic TOPICAL QID [facility] Last Admin: 11/09/18 16:15 Dose: Not Given Magnesium Hydroxide (Milk Of Magnkristine Liq*) 30 ml PO BID [facility] Last Admin: 11/09/18 09:02 Dose: 30 ml Magnesium Oxide (Magox 400 Tab*) 400 mg PO DAILY [facility] Last Admin: 11/09/18 09:00 Dose: 400 mg Melatonin (Melatonin) 3 mg PO BEDTIME PRN; Protocol PRN Reason: SLEEP Last Admin: 11/05/18 20:44 Dose: 3 mg Metoprolol Tartrate (Lopressor Iv*) 5 mg IV Q6H PRN PRN Reason: TACHYCARDIA Last Admin: 11/08/18 09:41 Dose: 5 mg Ondansetron HCl (Zofran Inj*) 4 mg IV Q4H PRN PRN Reason: NAUSEA Last Admin: 11/07/18 08:05 Dose: 4 mg Pantoprazole Sodium (Protonix Tab *) 40 mg PO BID [facility] Last Admin: 11/09/18 16:15 Dose: 40 mg Potassium Chloride (Klor Con Er Tab*) 10 meq PO DAILY [facility] Last Admin: 11/09/18 09:00 Dose: 10 meq Ropinirole HCl (Requip Tab*) 1 mg PO BEDTIME [facility] Last Admin: 11/08/18 20:53 Dose: 1 mg Senna (Senokot Tab*) 1 tab PO BEDTIME PRN PRN Reason: CONSTIPATION Sodium Chloride (Sodium Chloride 0.65% Nasal Gilbert*) 1 spray BOTH NARES Q4H PRN PRN Reason: nasal congestion Tamsulosin HCl (Flomax Cap*) 0.8 mg PO DAILY [facility] Last Admin: 11/09/18 08:59 Dose: 0.8 mg Throat Lozenges (Chloraseptic Karolina*) 1 karolina PO Q6H PRN PRN Reason: SORE THROAT Last Admin: 10/29/18 23:48 Dose: 1 karolina Vital Signs - 8 hr 11/09/18 11/09/18 11/09/18 15:27 16:14 18:25 Temperature 97.7 F Pulse Rate 73 Respiratory 16 18 16 Rate Blood Pressure 125/77 (mmHg) O2 Sat by Pulse 95 Oximetry Oxygen Devices in Use Now: None Appearance: Awake, alert. no distress Eyes: No Scleral Icterus Ears/Nose/Mouth/Throat: NL Teeth, Lips, Gums, Clear Oropharnyx, Mucous Membranes Moist Neck: NL Appearance and Movements; NL JVP, Trachea Midline, - - Cervical neck MJ collar in place Respiratory: Symmetrical Chest Expansion and Respiratory Effort Cardiovascular: NL Sounds; No Murmurs; No JVD, RRR Abdominal: NL Sounds; No Tenderness; No Distention Extremities: No Edema Neurological: Alert and Oriented x 3 Result Diagrams: 11/08/18 15:52 11/09/18 09:43 Diagnostic Imaging: . Assess/Plan/Problems-Billing Assessment: Mr. Oconnor is a 78 yo M with PMH of HTN, GERD, and BPH; who presented to the ED with c/o generalized weakness and was found to have new onset afib and high grade cervical myelopathy s/p PCDF C3-6 - Patient Problems (1) Cervical myelopathy Current Visit: Yes Status: Acute Code(s): G95.9 - DISEASE OF SPINAL CORD, UNSPECIFIED SNOMED Code(s): 553587654 Comment: -Weakness 2/2 high grade cervical stenosis as noted in imaging -POD #6 for neurosurgery: cervical fusion -Continue pain control -Per PT, progressing towards goals (2) Atrial fibrillation Current Visit: Yes Status: Acute Code(s): I48.91 - UNSPECIFIED ATRIAL FIBRILLATION SNOMED Code(s): 24567449 Comment: - Paroxysmal. Rate controlled today on Cardizem 180 mg daily - Continue watchful waiting and tele monitoring to determine tolerance of above med change - Remains off AC for surgery- POD # 6 for cervical decompression and fusion w/ arthrodesis @C3-4; C4-5, C5-6 and decompressive laminectomies - Per consult with Dr. Weinberg; he will f/u with Dr. Saenz at the [place] office at d/c; may start Eliquis POD #7 (as per neurosurgery) presuming hemodynamic stability post op; However discussing with Neurosurgery today, Dr. Pickett did voice persistent concern regarding starting eliquis or oral agent and prefer SQ heparin. I did try to see if family can learn and give it Q 8hrs and his sister is willing to come in am to educate - Echo shows EF 55-60%, mild to moderate LVH, LV function is adequate - Continue diltiazem for rate control (3) Hyponatremia Current Visit: Yes Status: Acute Code(s): E87.1 - HYPO-OSMOLALITY AND HYPONATREMIA SNOMED Code(s): 86554740 Comment: - Improving Sodium at 132 today. 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 (129 today on 11/07/17) - I advised to limit fluid/Water intake (4) GERD (gastroesophageal reflux disease) Current Visit: Yes Status: Acute Code(s): K21.9 - GASTRO-ESOPHAGEAL REFLUX DISEASE WITHOUT ESOPHAGITIS SNOMED Code(s): 691046955 Comment: - On famotidine 40 mg HS and pantoprazole 40 mg bid (5) Hyperlipidemia Current Visit: Yes Status: Acute Code(s): E78.5 - HYPERLIPIDEMIA, UNSPECIFIED SNOMED Code(s): 59140651 Comment: - Resume fenofibrate upon discharge (6) BPH (benign prostatic hyperplasia) Current Visit: Yes Status: Acute Code(s): N40.0 - BENIGN PROSTATIC HYPERPLASIA WITHOUT LOWER URINRY TRACT SYMP SNOMED Code(s): 280509606 Comment: Continue tamsulosin (7) Hypertension Current Visit: Yes Status: Acute Code(s): I10 - ESSENTIAL (PRIMARY) HYPERTENSION SNOMED Code(s): 54106338 Comment: -Better controlled with recent increase in Cardizem as discussed above d/c'ed home dose amlodipine since we started him on another CCB: cardizem (8) Restless legs syndrome (RLS) Current Visit: Yes Status: Acute Comment: Continue Requip 2 hours before bedtime (9) DVT prophylaxis Current Visit: Yes Status: Acute Code(s): YLE2879 - SNOMED Code(s): 019741247 Comment: - SCD - Hep SQ starting Day # 5 - Eliquisv.s Pradaxa starting Day # 7 Status and Disposition: -Possible D/C home in AM per NeuroSx and will defer -No PT needs identified
[2018-11-09] MEDS: Famotidine TAB* 20 MG PO SCH (20:57)
[2018-11-09] MEDS: rOPINIRole TAB* 1 MG PO SCH (20:57)
[2018-11-10] MEDS: Heparin VIAL(*) 5000 UNITS/ML VIAL (FIVE THOUSAND) SUBCUT SCH (08:57)
[2018-11-10] MEDS: Fluticasone NASAL SPRAY 50MCG* 16 gm SPRAY BTL BOTH NARES SCH (09:01)
[2018-11-10] MEDS: Tamsulosin CAP* 0.4 MG PO SCH (09:02)
[2018-11-10] MEDS: Docusate CAP* 100 MG PO SCH (09:03)
[2018-11-10] MEDS: Diltiazem CD CAP* 180 MG PO SCH (09:03)
[2018-11-10] MEDS: Diltiazem CD CAP* 120 MG PO SCH (09:03)
[2018-11-10] MEDS: Magnesium Oxide TAB* 400 MG PO SCH (09:03)
[2018-11-10] MEDS: Potassium Chlor TAB* 10 MEQ TAB.ER PO SCH (09:03)
[2018-11-10] MEDS: Pantoprazole TAB * 40 MG TAB PO SCH (09:03)
[2018-11-10] MEDS: Magnesium Hydroxide LIQ* 30 ML UDC PO SCH (09:04)
[2018-11-10] MEDS: Hydrocortisone 1% CREAM* 30 GM TUBE TOPICAL SCH ×2 (09:04→12:36)
--- NOTE | 2018-11-10 10:30 | DS ---
CC: Walter Avalos DO; Dr. Pickett * TENTATIVE DISCHARGE SUMMARY: DATE OF ADMISSION: 10/25/18 DATE OF DISCHARGE: 11/10/18 PRIMARY CARE PHYSICIAN: Walter Avalos DO NEUROSURGERY: Dr. Pickett. HOSPITAL COURSE: Patient presented to [facility] on 10/24/18 for generalized weakness with underlying history of hypertension and GERD. He was seen at the [facility] and his weakness has been getting severely worse, having difficulty ambulating with the walker and on evaluation in the emergency room, he noted to have atrial fibrillation with the rate in the low 100s. He was started on Cardizem drip. He denies any chest pain. His main symptom was neurologically generally weak and decreased weakness in his right and in the left going for months. He was admitted to the medical service for new-onset AFib and the MRI from the outside facility was obtained, and it was noted to have significant cervical stenosis with severe central canal at C3-C4 with cord compression and cord signal changes and was taken for surgery by neurosurgery for C3-C4, C4-C5, C5-C6 decompression and laminectomy at C2-C7 with locally harvested bone graft. Patient remained on the medicine service for the two major reasons, his cervical myelopathy that required surgical intervention and his new-onset atrial fibrillation. Given his atrial fibrillation, the patient was kept off anticoagulation perioperatively until postop day #5 and he was placed on heparin 5000 subcu q.8 hours for his DVT prophylaxis at the same time as partial anticoagulation with some benefit for his atrial fibrillation, although is not full anticoagulating. At present time, the goal is to start anticoagulation on postop day #7 if patient is unable to continue his heparin 5000 q.8. I discussed with neurosurgery, the recommendation to postpone full anticoagulation at least for 2 weeks and okay to continue on heparin 5000 q.8. Meanwhile, the patient's symptoms have been improving neurologically, cleared from Neurosurgery and from cardiac point of view, the patient was seen with Dr. Weinberg, who recommended to follow up with Dr. Saenz at [place]. So far, his atrial fibrillation seemed to be controlled. He fluctuates between atrial fib and atrial flutter. At his current regimen, his heart rate is controlled, unable to start full anticoagulation right now until he is fully cleared by Neurosurgery, but Neurosurgery did approve for the heparin 5000 subcu q.8 hours. So far, the plan is to discharge him tomorrow, hopefully home. We were awaiting to see if the family is willing to aid with the heparin 5000 q.8 subcu for at least additional 7 days, until he is cleared to initiate oral anticoagulation. The patient will be seen in the morning. An addendum will follow to this discharge summary for any update. IN-PATIENT DIAGNOSTIC STUDY: Patient had an echocardiogram on 10/24/18, revealed ejection fraction 55%-60%, LVH, normal atrial size. Brain MRI suggesting a small 1.3 cm periventricle and white matter bright area suggesting of a small acute infarct versus demyelinating disease. Recommended MRI with contrast. Cervical spine, multilevel degenerative disk disease, severe at C3-C4 with high - grade stenosis. CONSULTATIONS: 1. Cardiology with Dr. Terry Weinberg. 2. Neurosurgery, Dr. Pickett. DISCHARGE MEDICATIONS: The patient will be discharge with, 1. Tylenol as needed for pain. 2. Flexeril 10 mg t.i.d. p.r.n. 3. Cardizem 180 mg daily. 4. Colace 100 mg b.i.d. 5. Heparin 5000 subcu q.8 hours, if agreeable by family to inject for an additional 7 to 8 days until he is able to take oral anticoagulation. 6. Hydrocodone 5/325 one tab q.4 hours p.r.n. for pain. 7. Magnesium 400 mg daily. 8. Omeprazole 20 b.i.d. 9. Potassium 10 mEq daily. 10. Ranitidine 300 mg at bedtime. 11. Requip 1 mg at bedtime. 12. Flomax 0.8 mg daily. 13. Discontinue his amlodipine now that he is on diltiazem. 14. Discontinue diclofenac. 15. Discontinue doxycycline. 16. Resume fenofibrate 145 mg daily. 17. Losartan 100 mg daily. The patient will be assessed tomorrow on 11/10/18 and an addendum will follow to this discharge summary for any update. [id number]/[facility] #: [id number] [facility]
[2018-11-10] MEDS: HYDROcodone/ACETAMIN 5-325 MG* 1 TAB PO PRN (12:35)
[2018-11-10 12:37] VITALS: BP 140/74
--- NOTE | 2018-11-11 02:30 | DS ---
CC: Dr. Xavier Saenz; Dr. Walter Avalos; Dr. Kyaw Pickett. DISCHARGE SUMMARY: ADDENDUM: DISCHARGE MEDICATIONS: I was able to meet with the patient's sister who was agreeable to give the heparin 5000. She was educated, she learned it, and she was able to inject it to the patient this morning with the supervision of the nurse staff. Therefore, the patient will be discharged on heparin 5000 subcu q.8 hours. He is to complete the treatment for 8 more days and he is scheduled to complete that on 11/18/18. He is to remain without any heparin for the 11/19/18. He is to resume Pradaxa 150 mg b.i.d. on 11/20/18. I was able to discuss the case with Dr. Pickett and he agreed to do the heparin 5000 now that he is 5 days postoperatively and not to use any anticoagulation at least for 14 days postop which will be on Tuesday, . Therefore, he is to continue the heparin until 11/18/18. I did have him to avoid any heparin on 11/19/18, not to start Pradaxa until 11/20/18. The patient was given an appointment with Dr. Pickett and he was instructed to call to be seen within 3 to 5 days, that will be about 10 to 14 days from postoperatively. He is also given an appointment to follow up with Dr. Saenz is [facility] as recommended by Dr. Weinberg for outpatient. An appointment is for at 11 a.m. I will defer further decision on which anticoagulation to Dr. Saenz. The reasoning of Pradaxa as the agent of choice was simply because I did consult with our pharmacy and we do have Pradaxa reversal agent on hand, [employer]. [id number]/[facility] #: [id number] [facility]
== END 2018-11-10 13:45 | disposition home or self-care (01) | DRG 472 ==
LOC: ED 01:24 → MEDTELE 04:07 → OBSVTOIN 10-25 16:51 → SSU 11-03 16:22 → MEDTELE 11-05 19:18
PROVIDERS: ADMIT Internal Medicine; ATTEND Internal Medicine
PROC: 4A11X4G Monitoring of Peripheral Nervous Electrical Activity, Intraoperative, External Approach (ICD-10-PCS; 2018-11-03)
PROC: 0RG2071 Fusion of 2 or more Cervical Vertebral Joints with Autologous Tissue Substitute, Posterior Approach, Posterior Column, Open Approach (ICD-10-PCS; principal; 2018-11-03 09:45)
DX: M47.12 Other spondylosis with myelopathy, cervical region (principal); I48.92 Unspecified atrial flutter; G95.9 Disease of spinal cord, unspecified; M48.02 Spinal stenosis, cervical region; I10 Essential (primary) hypertension; K21.9 Gastro-esophageal reflux disease without esophagitis; E78.5 Hyperlipidemia, unspecified; N40.0 Benign prostatic hyperplasia without lower urinary tract symptoms; I48.91 Unspecified atrial fibrillation; G25.81 Restless legs syndrome; Z88.0 Allergy status to penicillin; Z88.8 Allergy status to other drugs, medicaments and biological substances
CPT/HCPCS: 36415; 70030; 70551; 71045; 72040; 72125; 72141; 76000; 80048; 80053; 81003; 81015; 82550; 82565; 83605; 83735; 83880; 84100; 84436; 84443; 84484; 84520; 85025; 85610; 85730; 93005; 93306; 99284; A9270-GY; G8978-GP-CJ; G8978-GP-CK; G8979-GP-CI; G8987-GO-CI; G8987-GO-CK; G8988-GO-CI; G8989-GO-CI; J0330; J0461; J1100; J1170; J1644; J2001; J2250; J2405; J2704; J2765; J3010; J3370; J3490

== ENCOUNTER 2018-11-13 12:52 | Emergency (ER) | payer MEDICARE ==
--- OUTSIDE RECORDS SUMMARY | 2018-11-13 13:11 | XMS REPORT | Continuity of Care Document ---
:1940 External Reference #:[id number] Author Name Margaret Cardona Care Team Providers Name Role Phone Terry Weinberg M.D., [facility] Care Team Information Online Merchandiser Unavailable Payers Type Date Identification Numbers Payment Provider Subscriber Policy Number: [id number] Medicare Blue Ppo Walter Oconnor PayID: [id number] [address] [address] [place] [address] Advance Directives Description No Information Available Problems Description No Information Family History Description No Information Available Social History Type Date Description Comments Sex Unknown Allergies, Adverse Reactions, Alerts Description No Information Medications Description No Information Immunizations Description No Information Available Vital Signs Description No Information Available Results Description No Information Available Procedures Description No Information Available Encounters Description No Information Available Plan of Treatment No Information Available
--- NOTE | 2018-11-13 14:36 | ED ---
Lower Extremity - HPI Summary HPI Summary: A 78 y/o male, accompanied by family, presents to [facility] with a chief complaint of left lower leg swelling on 11/13/18. Per triage note, "swelling to left leg with pain. s/p spinal surgery 11/03. swelling and pain in left calf, pulse and sensation intact. worried about blood clots, no history". He was discharged on 11/10/18. He rates his pain as 0/10 in severity. The patient had surgery on his cervical spine. He had a-flutter. He is scheduled for another surgery and the plan was to take heparin TID and Pradaxa. He denies any CP, SOB, hematuria or blood in his stool. He denies any smoking or drug use. - History of Current Complaint Chief Complaint: EDExtremityLower Stated Complaint: LEFT LEG SWELLING/WARM/WEAKNESS AFTER SURGERY Time Seen by Provider: 11/13/18 14:28 Hx Obtained From: Patient, Family/[employer] Reinforcer Mechanism Of Injury: Unknown Onset of Pain: Immediate, Hours Onset/Duration: Hours Severity Initially: Mild Severity Currently: None Pain Intensity: 0 Pain Scale Used: 0-10 Numeric Timing: Constant, Lasting Hours Location: Is Discrete @ - left leg Associated Signs And Symptoms: Negative: Redness, Fever Aggravating Factor(s): Nothing Alleviating Factor(s): Nothing - Allergies/Home Medications Allergies/Adverse Reactions: Allergies Allergy/AdvReac Type Severity Reaction Status Date / Time fexofenadine [From Makenzie] Allergy Altered Verified 11/13/18 13:02 Mental Status Penicillins Allergy Hives Verified 11/13/18 13:02 PMH/Surg Hx/FS Hx/Imm Hx Endocrine/Hematology History: Denies: Hx Diabetes Cardiovascular History: Reports: Hx Hypercholesterolemia, Hx Hypertension Denies: Hx Atrial Fibrillation, Hx Pacemaker/ICD Respiratory History: Reports: Hx Asthma, Hx Chronic Obstructive Pulmonary Disease (COPD) Musculoskeletal History: Reports: Other Musculoskeletal History - bilateral lower leg weakness Sensory History: Reports: Hx Contacts or Glasses, Hx Hearing Aid - REMOVED Opthamlomology History: Reports: Hx Contacts or Glasses Psychiatric History: Denies: Hx Panic Disorder - Surgical History Surgery Procedure, Year, and Place: RIGHT SHOULDER- 06/08/13 Infectious Disease History: No Infectious Disease History: Denies: Traveled Outside the [place] in Last 30 Days - Family History Known Family History: Negative: Cardiac Disease, Diabetes - Social History Alcohol Use: Occasionally Hx Substance Use: No Substance Use Type: Reports: None Hx Tobacco Use: No Smoking Status (MU): Never Smoked Tobacco Review of Systems Negative: Fever Positive: Other - Positive: swelling left leg Skin: Negative - erythema All Other Systems Reviewed And Are Negative: Yes Physical Exam - Summary Physical Exam Summary: Appearance: Well-appearing, Well-nourished, lying in bed comfortably Skin: Warm, dry, no obvious rash Eyes: sclera anicteric, no conjunctival pallor ENT: mucous membranes moist, pharynx appears normal Neck: Cervical collar left in place, Supple, nontender Respiratory: Clear to auscultation, no signs of respiratory distress Cardiovascular: Heart rhythm is irregularly irregular but rate controlled. No abnormal heart sounds. No murmurs. Normal distal pulses in tibial and radial bilaterally. Abdomen: Soft, nontender, normal active bowel sounds present Musculoskeletal: Swelling R leg into his ankle and foot with associated warmth but no erythema, Strength/ROM Intact Neurological: A&Ox3, awake and alert, mentation is normal, speech is fluent and appropriate Psychiatric: affect is normal, does not appear anxious or depressed Triage Information Reviewed: Yes Vital Signs On Initial Exam: Initial Vitals Temp Pulse Resp BP Pulse Ox 97.3 F 72 16 141/79 95 11/13/18 12:57 11/13/18 12:57 11/13/18 12:57 11/13/18 12:57 11/13/18 12:57 Vital Signs Reviewed: Yes Diagnostics - Vital Signs Vital Signs Temp Pulse Resp BP Pulse Ox 11/13/18 12:57 97.3 F 72 16 141/79 95 - Laboratory Result Diagrams: 11/13/18 14:43 11/13/18 14:43 Lab Statement: Any lab studies that have been ordered have been reviewed, and results considered in the medical decision making process. - Ultrasound No standard instances Ultrasound Interpretation Completed By: Radiologist Summary of Ultrasound Findings: VL LOWER EXT VEINS LEFT IMPRESSION: Extensive occlusive LEFT lower extremity DVT from the distal segment of the femoral. vein at the thigh extending into the calf. Superficial LEFT lower extremity venous thrombosis at the small saphenous vein. ED provider has reviewed this imaging report. Lower Extremity Course/Dx - Course Course Of Treatment: A 78 y/o male, accompanied by family, presents to [facility] with a chief complaint of left lower leg swelling on 11/13/18 post cervical surgery on 11/03/18. The physical exam revealed that his cervical collar left in place. Heart rhythm is irregularly irregular, rate controlled,. Swelling Lower leg into his ankle and foot with associated warmth but no erythema. VL LOWER EXT VEINS LEFT IMPRESSION: Extensive occlusive LEFT lower extremity DVT from the distal segment of the femoral. vein at the thigh extending into the calf. Superficial LEFT lower extremity venous thrombosis at the small saphenous vein. Lab results obtained and WNL. Case discussed with Dr. Grubbs, who reports that it is far enough after the surgery to give the patient whatever anticoagulants he needed. Case discussed with Dr. Shelton, hospitalist, who recommended Xarelto. In the ED course he was given Xarelto PO. He will be discharged with a prescription for Xarelto. The patient is agreeable with this plan. - Diagnoses Provider Diagnoses: Deep venous thrombosis of distal vein of left lower extremity - Physician Notifications Discussed Care Of Patient With: Odell Grubbs Time Discussed With Above Provider: 14:40 Instructed by Provider To: Other - Reports that the patient is far enough out of the surgery that we can anticoagulate the patient with whatever he needs. Discharge - Sign-Out/Discharge Documenting (check all that apply): Patient Departure - Discharge Plan Condition: Good Disposition: HOME Prescriptions: Rivaroxaban TAB(*) [Xarelto 15 mg(*)] 15 mg PO BID 21 Days #41 tab Patient Education Materials: Deep Vein Thrombosis (ED) Referrals: Walter Avalos DO [Primary Care Provider] - Additional Instructions: The dose of the Xarelto will change to 20 mg daily after the first three weeks of therapy. Monitor yourself for any new symptoms, particularly concerning would be worsening neurological symptoms such as what you had before your neck surgery, such as weakness in the extremities, or worsening neck pain. We or your neurosurgeon would want to see you back were those to happen to check for any bleeding associated with the operative site. - Billing Disposition and Condition Condition: GOOD Disposition: Home - Attestation Statements Document Initiated by Christi: Yes Documenting Scribe: Mervin Wilde Provider For Whom Christi is Documenting (Include Credential): MD Brent Mcqueenibsameer Attestation: IMervin, scribed for Elias Morris MD on 11/13/18 at 1726. Scribe Documentation Reviewed: Yes Provider Attestation: The documentation as recorded by the scribe, Mervin Wilde accurately reflects the service I personally performed and the decisions made by me, Elias Morris MD Status of Scribe Document: Viewed Consult Consult: At 14:[address] Shelton, hospitalist, who recommends Xarelto for 21 days and follow up with PCP.
[2018-11-13] MEDS ORDERED: Rivaroxaban TAB(*) 15 MG PO ONE (14:49)
[2018-11-13 14:50] LABS: ABS Basophils 0.1 10^3/ul (0-0.2); ABS Eosinophils 0.2 10^3/ul (0-0.6); ABS Lymphocytes 1.5 10^3/ul (1.0-4.8); ABS Monocytes 1.1 10^3/ul (0-0.8); ABS Neutrophils 7.9 10^3/ul (1.5-7.7); ABS Nucleated RBC 0 10^3/ul; Eosinophil % 1.5 %; Hematocrit 43 % (42-52); Hemoglobin 13.9 g/dl (14.0-18.0); Lymphocyte % 14.3 %; Mean Corpuscular HGB Conc 33 g/dl (31-36); Mean Corpuscular Hemoglobin 29 pg (27-31); Mean Corpuscular Volume 89 fL (80-94); Mean Platelet Volume 6.5 fL (7.4-10.4); Nucleated Red Blood Cells % 0; Platelet Count 443 10^3/ul (150-450); Red Blood Count 4.78 10^6/ul (4.00-5.40); Red Cell Distribution Width 14 % (10.5-15); White Blood Count 10.8 10^3/ul (3.5-10.8)
[2018-11-13 14:55] LABS: INR 1.04 (0.77-1.02)
[2018-11-13 15:05] LABS: BUN/Creatinine Ratio 28.4 (8-20); Calcium 10.1 mg/dL (8.6-10.3); EGFR Non-African American 102.8 (>60); Potassium 4.5 mmol/L (3.5-5.0)
[2018-11-13 15:40] VITALS: BP 129/84
== END 2018-11-13 15:39 | disposition home or self-care (01) ==
LOC: ED 12:52
DX: I82.4Z2 Acute embolism and thrombosis of unspecified deep veins of left distal lower extremity (principal); Z88.0 Allergy status to penicillin; Z88.8 Allergy status to other drugs, medicaments and biological substances
CPT/HCPCS: 36415; 80048; 85025; 85610; 99282

== ENCOUNTER → 2018-11-20 15:11 | Emergency (ER) | payer MEDICARE ==
[~2018-11-20 15:11] MED LIST: NS 0.9% 1000 ML** 1,000 ML IV ONE; Ondansetron INJ* 2 MG/ML VIAL IV ONE; Ondansetron ODT TAB* 4 MG PO ONE
--- OUTSIDE RECORDS SUMMARY | 2018-11-20 15:24 | XMS REPORT | Continuity of Care Document ---
:1940 External Reference #:[id number] Author Name Esperanza Landaverde Care Team Providers Name Role Phone Walter Avalos D.O. Primary Care Physician Unavailable Payers Type Date Identification Numbers Payment Provider Subscriber Policy Number: [id number] Medicare Blue Ppo Walter Oconnor PayID: [id number] [address] [address] [place] [address] Advance Directives Description No Information Available Problems Description No Information Family History Date Family Member(s) Problem(s) Comments General 3 sons and 1 daughter - healthy Father due to Colon Cancer () Father due to COPD () Father due to hypertension () Mother due to Hyertension () Siblings 3 3 sisters, sister passed at age 52 d/t colon CA. 2 living sisters have htn and 1 has leukemia. Social History Type Date Description Comments Sex Unknown Marital Status Lives With Spouse ETOH Use Rarely consumes alcohol Tobacco Use Start: Unknown Patient has never smoked Recreational Drug Use Denies Drug Use Smoking Status Reviewed: 11/14/18 Patient has never smoked Exercise Type/Frequency Exercises regularly Allergies, Adverse Reactions, Alerts Date Description Reaction Status Severity Comments 11/16/2018 Penicillin Active 11/16/2018 Makenzie Active Medications Medication Date Status Form Strength Qnty SIG Indications Ordering Provider Metoprolol 11/16/ Active Tablets ER 25mg 90tabs 1 by I48.2 Xavier Succinate ER 2019 24HR mouth D. Brand, twice M.D. daily Tylenol 8 Hour 00/00/ Active Tablets ER 650mg prn pain Unknown 0000 Cyclobenzaprine / Active Tablets 10mg 1 by Unknown HCL 0000 mouth three times a day prn Cardizem CD / Active Caps ER 180mg 1 by Unknown 0000 24HR mouth every day Colace / Active Capsules 100mg 1 tab Unknown 0000 bid Hydrocodone / Active Tablets 5-325mg 1 tab Unknown Bitartrate/Acetam 0000 every 4 inophen hours prn pain Magnesium-Oxide / Active Tablets 400(241.3m 1 by Unknown 0000 g) mg mouth every day Omeprazole / Active Capsules 20mg [address] Potassium / Active Capsules 10Meq 1 by Unknown Chloride ER 0000 ER mouth every day Ranitidine HCL / Active Tablets 300mg take one Unknown 0000 tablet by mouth at bedtime Requip / Active Tablets 1mg 1 at Unknown 0000 bedtime Flomax / Active Capsules 0.8mg 1 by Unknown 0000 mouth every day Fenofibrate / Active Tablets 145mg 1 by Unknown 0000 mouth every day Losartan / Active Tablets 100mg 1 by Unknown Potassium 0000 mouth every day Xarelto / Active Tablets 20mg 1 by Unknown 0000 mouth every day Immunizations Description No Information Available Vital Signs Date Vital Result Comment 11/16/2018 10:47am Height 66 inches 5'6" Weight 145.38 lb with clothes and shoes Heart Rate 69 /min BP Systolic Sitting 142 mmHg sitting, left arm, regular cuff BP Diastolic Sitting 62 mmHg sitting, left arm, regular cuff BP Systolic Standing 132 mmHg standing, left arm, regular cuff BP Diastolic Standing 66 mmHg standing, left arm, regular cuff Respiratory Rate 16 /min BMI (Body Mass Index) 23.5 kg/m2 Results Description No Information Available Procedures Date Code Description Status 11/16/2018 73504 EKG Tracing & Interpretation Completed 10/24/2018 33015 ECHO Transthorasic Realtime 2D W Doppler & Color Flow Hosp Completed Encounters Type Date Location Provider Dx Diagnosis Office Visit 11/10/2018 [facility] I48.91 Unspecified atrial 10:02a ana Patel fibrillation Hospitalists M.D. G95.9 Disease of spinal cord, unspecified Office Visit 11/09/2018 [facility] I48.0 Paroxysmal atrial 10:01a ana Patel M.D. fibrillation Fosterists G95.9 Disease of spinal cord, unspecified E87.1 Hypo-osmolality and hyponatremia K21.9 Gastro-esophageal reflux disease without esophagitis E78.5 Hyperlipidemia, unspecified G25.81 Restless legs syndrome N40.0 Benign prostatic hyperplasia without lower urinry tract symp Office Visit 11/08/2018 [facility] I48.0 Paroxysmal atrial 9:59a Assana nice M.D. fibrillation Hospitalists G95.9 Disease of spinal cord, unspecified E87.1 Hypo-osmolality and hyponatremia K21.9 Gastro-esophageal reflux disease without esophagitis I10 Essential (primary) hypertension G25.81 Restless legs syndrome N40.0 Benign prostatic hyperplasia without lower urinry tract symp Office Visit 11/07/2018 [facility] I48.0 Paroxysmal atrial 9:58a ana Patel M.D. fibrillation Hospitalists G95.9 Disease of spinal cord, unspecified E87.1 Hypo-osmolality and hyponatremia K21.9 Gastro-esophageal reflux disease without esophagitis I10 Essential (primary) hypertension G25.81 Restless legs syndrome Office Visit 11/06/2018 [facility] I48.91 Unspecified 9:57a ana Patel MD atrial Hospitalists fibrillation G95.9 Disease of spinal cord, unspecified I10 Essential (primary) hypertension G25.81 Restless legs syndrome Office Visit 11/05/2018 [facility] I48.91 Unspecified 9:50a Assana nice MD atrial Hospitalists fibrillation G95.9 Disease of spinal cord, unspecified I10 Essential (primary) hypertension G25.81 Restless legs syndrome N40.0 Benign prostatic hyperplasia without lower urinry tract symp Office Visit 11/04/2018 [facility] I48.91 Unspecified atrial 10:11a Assana nice MD fibrillation Hospitalists G95.9 Disease of spinal cord, unspecified I10 Essential (primary) hypertension G25.81 Restless legs syndrome Office Visit 11/03/2018 [facility] I48.91 Unspecified atrial 10:10a Assana nice MD fibrillation Hospitalists G95.9 Disease of spinal cord, unspecified I10 Essential (primary) hypertension G25.81 Restless legs syndrome Office Visit 11/02/2018 [facility] I48.91 Unspecified atrial 9:40a Assoc,pc Larisa Anna, fibrillation 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 fibrillation Hospitalists G95.9 Disease of spinal cord, unspecified I10 Essential (primary) hypertension G25.81 Restless legs syndrome Office Visit 10/29/2018 9:42a [facility] Audery Penny, I48.91 Unspecified atrial Assoc,pc N.P. fibrillation Hospitalists G95.9 Disease of spinal cord, unspecified I10 Essential (primary) hypertension N40.0 Benign prostatic hyperplasia without lower urinry tract symp Office [facility] 10/28[facility]2018 [facility], I48.[facility] Unspecified atrial Assoc,pc N.P. 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 CARE MANAGEMENT G95.9 Disease of spinal cord, unspecified I10 Essential (primary) hypertension N40.0 Benign prostatic hyperplasia without lower urinry tract symp G25.81 Restless legs syndrome Office Visit 10/26/2018 1:56p Neurosurgery Kamila Arauz, M47.12 Other spondylosis Services Of [facility] ALEX with myelopathy, cervical region Office Visit 10/25/2018 9:38a [facility] I48.91 Unspecified atrial Assoc,pc Melissa, MANAGER CARE MANAGEMENT fibrillation Hospitalists R53.1 Weakness I10 Essential (primary) hypertension N40.0 Benign prostatic hyperplasia without lower urinry tract symp [facility] R[facility].1 Weakness Assoc,pc Hospitalists Lucinda I48.91 Unspecified atrial fibrillation I10 Essential (primary) hypertension Office Visit 10/24/2018 1:09p [facility] Terry Qasim I48.0 Paroxysmal atrial Of Pravin Weinberg M.D., fibrillation FAC, [facility] Plan of Treatment Future Appointment(s):12/14/2018 10:30 am - Xavier Saenz M.D. at [facility]11/16/2018 - Xavier Saenz M.D.I48.2 Chronic atrial fibrillationNew Medication:Metoprolol Succinate ER 25 mg - 1 by mouth twice dailyFollow up:1 month
--- OUTSIDE RECORDS SUMMARY | 2018-11-20 15:24 | XMS REPORT | Continuity of Care Document ---
:1940 External Reference #:[id number] Author Name Esperanza Landaverde Care Team Providers Name Role Phone Walter Avalos D.O. Primary Care Physician Unavailable Payers Type Date Identification Numbers Payment Provider Subscriber Policy Number: [id number] Medicare Blue Ppo Walter Oconnor PayID: [id number] [address] [address] [place] [address] Advance Directives Description No Information Available Problems [...] Available Procedures Date Code Description Status 11/16/2018 33386 EKG Tracing & Interpretation Completed 10/24/2018 53448 ECHO Transthorasic Realtime 2D W Doppler & Color Flow Hosp Completed Encounters Type Date Location Provider Dx Diagnosis Office Visit 11/10/2018 [facility] I48.91 Unspecified atrial 10:02a ana Patel fibrillation Hospitalists M.D. G95.9 Disease of spinal cord, unspecified Office Visit 11/09/2018 [facility] I48.0 Paroxysmal atrial 10:01a ana Patel M.D. fibrillation Fosterists G95.9 Disease of spinal cord, unspecified E87.1 Hypo-osmolality and hyponatremia K21.9 Gastro-esophageal reflux disease without esophagitis E78.5 Hyperlipidemia, unspecified G25.81 Restless legs syndrome N40.0 Benign prostatic hyperplasia without lower urinry tract symp Office Visit 11/08/2018 [facility] I48.0 Paroxysmal atrial 9:59a Assana nice M.D. fibrillation Hospitalists G95.9 Disease of spinal cord, unspecified E87.1 Hypo-osmolality and hyponatremia K21.9 Gastro-esophageal reflux disease without esophagitis I10 Essential (primary) hypertension G25.81 Restless legs syndrome N40.0 Benign prostatic hyperplasia without lower urinry tract symp Office Visit 11/07/2018 [facility] I48.0 Paroxysmal atrial 9:58a ana Patel M.D. fibrillation Hospitalists G95.9 Disease of spinal cord, unspecified E87.1 Hypo-osmolality and hyponatremia K21.9 Gastro-esophageal reflux disease without esophagitis I10 Essential (primary) hypertension G25.81 Restless legs syndrome Office Visit 11/06/2018 [facility] I48.91 Unspecified 9:57a ana Patel MD atrial Hospitalists fibrillation G95.9 Disease of spinal cord, unspecified I10 Essential (primary) hypertension G25.81 Restless legs syndrome Office Visit 11/05/2018 [facility] I48.91 Unspecified 9:50a Assana nice MD atrial Hospitalists fibrillation G95.9 Disease of spinal cord, unspecified I10 Essential (primary) hypertension G25.81 Restless legs syndrome N40.0 Benign prostatic hyperplasia without lower urinry tract symp Office Visit 11/04/2018 [facility] I48.91 Unspecified atrial 10:11a Assana nice MD fibrillation Hospitalists G95.9 Disease of spinal cord, unspecified I10 Essential (primary) hypertension G25.81 Restless legs syndrome Office Visit 11/03/2018 [facility] I48.91 Unspecified atrial 10:10a Assana nice MD fibrillation Hospitalists G95.9 Disease of spinal cord, unspecified I10 Essential (primary) hypertension G25.81 Restless legs syndrome Office Visit 11/02/2018 [facility] I48.91 Unspecified atrial 9:40a Assoc,pc Larisa Anna, fibrillation Hospitalists MANAGER NEW PRODUCT G95.9 Disease of spinal cord, unspecified I10 Essential (primary) hypertension G25.81 Restless legs syndrome K59.00 Constipation, unspecified Office Visit 10/31/2018 [facility] I48.91 Unspecified atrial 9:44a Assoc,pc Larisa Anna, fibrillation Hospitalists MANAGER NEW PRODUCT G95.9 Disease of spinal cord, unspecified I10 Essential (primary) hypertension G25.81 Restless legs syndrome Office Visit 10/30/2018 9:42a [facility] Audrey Zohaib, I48.0 Paroxysmal atrial Assoc,pc N.P. fibrillation Hospitalists G95.9 Disease of spinal cord, unspecified I10 Essential (primary) hypertension G25.81 Restless legs syndrome Office Visit 10/29/2018 9:42a [facility] Audrey Penny, I48.91 Unspecified atrial Assoc,pc N.P. fibrillation Hospitalists G95.9 Disease of spinal cord, unspecified I10 Essential (primary) hypertension N40.0 Benign prostatic hyperplasia without lower urinry tract symp [facility] Unspecified atrial Assoc,pc N.P. fibrillation Hospitalists G95.9 Disease of spinal cord, unspecified I10 Essential (primary) hypertension G25.81 Restless legs syndrome Office Visit 10/27/2018 [facility] I48.91 Unspecified atrial 9:40a Assoc,pc Larisa Anna, fibrillation Hospitalists MANAGER NEW PRODUCT G95.9 Disease of spinal cord, unspecified I10 Essential (primary) hypertension N40.0 Benign prostatic hyperplasia without lower urinry tract symp G25.81 Restless legs syndrome Office Visit 10/26/2018 1:56p Neurosurgery Kamila Arauz, M47.12 Other spondylosis Services Of [facility] ALEX with myelopathy, cervical region Office Visit 10/25/2018 9:38a [facility] I48.91 Unspecified atrial Assoc,pc Melissa, MANAGER NEW PRODUCT fibrillation Hospitalists R53.1 Weakness I10 Essential (primary) hypertension N40.0 Benign prostatic hyperplasia without lower urinry tract symp [facility] R[facility] Weakness Assoc,pc Hospitalists Lucinda I48.91 Unspecified atrial fibrillation I10 Essential (primary) hypertension Office Visit 10/24/2018 1:09p [facility] Terry Qasim I48.0 Paroxysmal atrial Of Pravin Weinberg M.D., fibrillation FAC, [facility] Plan of Treatment Future Appointment(s):12/28/2018 11:15 am - Xavier Saenz M.D. at [facility]11/16/2018 - Xavier Saenz M.D.I48.2 Chronic atrial fibrillationNew Medication:Metoprolol Succinate ER 25 mg - 1 by mouth twice dailyFollow up:1 month
--- OUTSIDE RECORDS SUMMARY | 2018-11-20 15:24 | XMS REPORT | Continuity of Care Document ---
:1940 External Reference #:[id number] Author Name Esperanza Landaverde Care Team Providers Name Role Phone Walter Avalos D.O. Primary Care Physician Unavailable Payers Type Date Identification Numbers Payment Provider Subscriber Policy Number: [id number] Medicare Blue Ppo Walter Oconnor PayID: [id number] [address] [address] [place] [address] Advance Directives Description No Information Available Problems [...] Available Procedures Date Code Description Status 11/16/2018 08910 EKG Tracing & Interpretation Completed 10/24/2018 55701 ECHO Transthorasic Realtime 2D W Doppler & Color Flow Hosp Completed Encounters Type Date Location Provider Dx Diagnosis Office Visit 11/10/2018 [facility] I48.91 Unspecified atrial 10:02a ana Patel fibrillation Hospitalists M.D. G95.9 Disease of spinal cord, unspecified Office Visit 11/09/2018 [facility] I48.0 Paroxysmal atrial 10:01a ana Patel M.D. fibrillation Fosterists G95.9 Disease of spinal cord, unspecified E87.1 Hypo-osmolality and hyponatremia K21.9 Gastro-esophageal reflux disease without esophagitis E78.5 Hyperlipidemia, unspecified G25.81 Restless legs syndrome N40.0 Benign prostatic hyperplasia without lower urinry tract symp Office Visit 11/08/2018 [facility] I48.0 Paroxysmal atrial 9:59a Assana nice M.D. fibrillation Hospitalists G95.9 Disease of spinal cord, unspecified E87.1 Hypo-osmolality and hyponatremia K21.9 Gastro-esophageal reflux disease without esophagitis I10 Essential (primary) hypertension G25.81 Restless legs syndrome N40.0 Benign prostatic hyperplasia without lower urinry tract symp Office Visit 11/07/2018 [facility] I48.0 Paroxysmal atrial 9:58a ana Patel M.D. fibrillation Hospitalists G95.9 Disease of spinal cord, unspecified E87.1 Hypo-osmolality and hyponatremia K21.9 Gastro-esophageal reflux disease without esophagitis I10 Essential (primary) hypertension G25.81 Restless legs syndrome Office Visit 11/06/2018 [facility] I48.91 Unspecified 9:57a ana Patel MD atrial Hospitalists fibrillation G95.9 Disease of spinal cord, unspecified I10 Essential (primary) hypertension G25.81 Restless legs syndrome Office Visit 11/05/2018 [facility] I48.91 Unspecified 9:50a Assana nice MD atrial Hospitalists fibrillation G95.9 Disease of spinal cord, unspecified I10 Essential (primary) hypertension G25.81 Restless legs syndrome N40.0 Benign prostatic hyperplasia without lower urinry tract symp Office Visit 11/04/2018 [facility] I48.91 Unspecified atrial 10:11a Assana nice MD fibrillation Hospitalists G95.9 Disease of spinal cord, unspecified I10 Essential (primary) hypertension G25.81 Restless legs syndrome Office Visit 11/03/2018 [facility] I48.91 Unspecified atrial 10:10a Assana nice MD fibrillation Hospitalists G95.9 Disease of spinal cord, unspecified I10 Essential (primary) hypertension G25.81 Restless legs syndrome Office Visit 11/02/2018 [facility] I48.91 Unspecified atrial 9:40a Assoc,pc Larisa Anna, fibrillation Hospitalists 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 fibrillation Hospitalists G95.9 Disease of spinal cord, unspecified I10 Essential (primary) hypertension G25.81 Restless legs syndrome Office Visit 10/29/2018 9:42a [facility] Audrey Penny, I48.91 Unspecified atrial Assoc,pc N.P. fibrillation Hospitalists G95.9 Disease of spinal cord, unspecified I10 Essential (primary) hypertension N40.0 Benign prostatic hyperplasia without lower urinry tract symp [facility] Unspecified atrial Assoc,pc N.P. fibrillation Hospitalists G95.9 Disease of spinal cord, unspecified I10 Essential (primary) hypertension G25.81 Restless legs syndrome Office Visit 10/27/2018 [facility] I48.91 Unspecified atrial 9:40a Assoc,pc Larisa Anna, fibrillation Hospitalists VOLUNTEER SERVICES DIRECTOR G95.9 Disease of spinal cord, unspecified I10 Essential (primary) hypertension N40.0 Benign prostatic hyperplasia without lower urinry tract symp G25.81 Restless legs syndrome Office Visit 10/26/2018 1:56p Neurosurgery Kamila Arauz, M47.12 Other spondylosis Services Of [facility] ALEX with myelopathy, cervical region Office Visit 10/25/2018 9:38a [facility] I48.91 Unspecified atrial Assoc,pc Melissa, VOLUNTEER SERVICES DIRECTOR fibrillation Hospitalists R53.1 Weakness I10 Essential (primary) hypertension N40.0 Benign prostatic hyperplasia without lower urinry tract symp [facility] 10/24[facility]2018 [facility] R53.1 Weakness Assoc,pc Hospitalists Lucinda I48.91 Unspecified atrial fibrillation I10 Essential (primary) hypertension Office Visit 10/24/2018 1:09p [facility] Terry Qasim I48.0 Paroxysmal atrial Of Pravin Weinberg M.D., fibrillation FAC, [facility] Plan of Treatment Future Appointment(s):12/28/2018 11:15 am - Xavier [facility] M.D. at [facility]11/16/2018 - Xavier Saenz M.D.I48.2 Chronic atrial fibrillationNew Medication:Metoprolol Succinate ER 25 mg - 1 by mouth twice dailyNew Orders:Holter Monitor, Ordered: 11/16/18Follow up:1 month
[2018-11-20 17:12] LABS: ABS Basophils 0 10^3/ul (0-0.2); ABS Eosinophils 0 10^3/ul (0-0.6); ABS Lymphocytes 0.4 10^3/ul (1.0-4.8); ABS Monocytes 0.5 10^3/ul (0-0.8); ABS Neutrophils 10.5 10^3/ul (1.5-7.7); ABS Nucleated RBC 0 10^3/ul; Eosinophil % 0.1 %; Hematocrit 45 % (42-52); Hemoglobin 15.1 g/dl (14.0-18.0); Lymphocyte % 3.4 %; Mean Corpuscular HGB Conc 33 g/dl (31-36); Mean Corpuscular Hemoglobin 30 pg (27-31); Mean Corpuscular Volume 89 fL (80-94); Mean Platelet Volume 6.6 fL (7.4-10.4); Nucleated Red Blood Cells % 0; Platelet Count 611 10^3/ul (150-450); Red Blood Count 5.07 10^6/ul (4.00-5.40); Red Cell Distribution Width 15 % (10.5-15); White Blood Count 11.5 10^3/ul (3.5-10.8)
[2018-11-20 17:28] LABS: Albumin 4.3 g/dL (3.2-5.2); Albumin/Globulin Ratio 1.3 (1-3); BUN/Creatinine Ratio 35.8 (8-20); C Reactive Protein 20.76 mg/L (<8.01); Calcium 9.8 mg/dL (8.6-10.3); EGFR African American 112.1 (>60); EGFR Non-African American 92.6 (>60); Globulin 3.3 g/dL (2-4); Potassium 4.7 mmol/L (3.5-5.0); Total Bilirubin 0.9 mg/dL (0.2-1.0); Total Protein 7.6 g/dL (6.4-8.9)
--- NOTE | 2018-11-20 18:15 | ED ---
GI/ HPI - HPI Summary HPI Summary: Patient is a 78 y/o M presenting to ED with complaints of N/V/D since 0600 this morning. He reports 4-5 episodes of vomiting, one episode of diarrhea. Patient denies fever and abdominal pain. He had spinal surgery 11/03/[address] Pierson. Patient was seen here for a blood clot in left leg, Dx a week ago today. Patient was started on metoprolol four days ago. Per triage note, patient "had dressing checked and changed tuesday. was sick with similar symptoms two weeks ago". On triage, pain is denied. Nothing is noted to aggravate/alleviate Sx. Home medications and allergies are reviewed. - History of Current Complaint Chief Complaint: EDNauseaVomitDiarrh Time Seen by Provider: 11/20/18 17:40 Stated Complaint: NAUSEA/VOMMITING Hx Obtained From: Patient Onset/Duration: Started Hours Ago - this morning 0600, Still Present Timing: Constant, Lasting Hours - since 0600 Current Severity: None Pain Intensity: 0 Associated Signs and Symptoms: Positive: Nausea, Vomiting, Diarrhea. Negative: Fever, Abdominal Pain Aggravating Factor(s): Nothing Alleviating Factor(s): Nothing - Allergy/Home Medications Allergies/Adverse Reactions: Allergies Allergy/AdvReac Type Severity Reaction Status Date / Time fexofenadine [From Makenzie] Allergy Altered Verified 11/20/18 15:18 Mental Status Penicillins Allergy Hives Verified 11/20/18 15:18 PMH/Surg Hx/FS Hx/Imm Hx Endocrine/Hematology History: Denies: Hx Diabetes Cardiovascular History: Reports: Hx Hypercholesterolemia, Hx Hypertension Denies: Hx Atrial Fibrillation, Hx Pacemaker/ICD Respiratory History: Reports: Hx Asthma, Hx Chronic Obstructive Pulmonary Disease (COPD) Musculoskeletal History: Reports: Other Musculoskeletal History - bilateral lower leg weakness Sensory History: Reports: Hx Contacts or Glasses, Hx Hearing Aid - REMOVED Opthamlomology History: Reports: Hx Contacts or Glasses Psychiatric History: Denies: Hx Panic Disorder - Surgical History Surgery Procedure, Year, and Place: RIGHT SHOULDER- 06/08/13 Infectious Disease History: No Infectious Disease History: Denies: Traveled Outside the [place] in Last 30 Days - Family History Known Family History: Negative: Cardiac Disease, Diabetes - Social History Alcohol Use: Occasionally Hx Substance Use: No Substance Use Type: Reports: None Hx Tobacco Use: No Smoking Status (MU): Never Smoked Tobacco Review of Systems Negative: Fever Positive: Vomiting, Diarrhea, Nausea. Negative: Abdominal Pain All Other Systems Reviewed And Are Negative: Yes Physical Exam - Summary Physical Exam Summary: Appearance: Well appearing, no pain distress Skin: warm, dry, reflects adequate perfusion Head/face: normal Eyes: EOMI, SHELBIE ENT: normal Neck: supple, non-tender Respiratory: CTA, breath sounds present Cardiovascular: tachycardic, pulses symmetrical Abdomen: non-tender, soft Musculoskeletal: normal, strength/ROM intact Neuro: normal, sensory motor intact, A&Ox3 Triage Information Reviewed: Yes Vital Signs On Initial Exam: Initial Vitals Temp Pulse Resp BP Pulse Ox 98.4 F 80 16 143/82 95 11/20/18 15:14 11/20/18 15:14 11/20/18 15:14 11/20/18 15:14 11/20/18 15:14 Vital Signs Reviewed: Yes Diagnostics - Vital Signs Vital Signs Temp Pulse Resp BP Pulse Ox 11/20/18 17:33 98.8 F 65 16 125/55 95 11/20/18 15:14 98.4 F 80 16 143/82 95 - Laboratory Lab Results: Lab Results 11/20/18 11/20/18 11/20/18 Range/Units 16:39 16:39 16:39 WBC 11.5 H (3.5-10.8) 10^3/ul RBC 5.07 (4.00-5.40) 10^6/ul Hgb 15.1 (14.0-18.0) g/dl Hct 45 (42-52) % MCV 89 (80-94) fL MCH 30 (27-31) pg MCHC 33 (31-36) g/dl RDW 15 (10.5-15) % Plt Count 611 H D (150-450) 10^3/ul MPV 6.6 L (7.4-10.4) fL Neut % (Auto) 91.5 % Lymph % (Auto) 3.4 % [place] % (Auto) 4.7 % Eos % (Auto) 0.1 % Baso % (Auto) 0.3 % Absolute Neuts (auto) 10.5 H (1.5-7.7) 10^3/ul Absolute Lymphs (auto) 0.4 L (1.0-4.8) 10^3/ul Absolute Monos (auto) 0.5 (0-0.8) 10^3/ul Absolute Eos (auto) 0 (0-0.6) 10^3/ul Absolute Basos (auto) 0 (0-0.2) 10^3/ul Absolute Nucleated RBC 0 10^3/ul Nucleated RBC % 0 APTT (26.0-36.3) seconds Sodium 135 (135-145) mmol/L Potassium 4.7 (3.5-5.0) mmol/L Chloride 102 (101-111) mmol/L Carbon Dioxide 24 (22-32) mmol/L Anion Gap 9 (2-11) mmol/L BUN 29 H (6-24) mg/dL Creatinine 0.81 (0.67-1.17) mg/dL Est GFR ( Amer) 112.1 (>60) Est GFR (Non-Af Amer) 92.6 (>60) BUN/Creatinine Ratio 35.8 H (8-20) Glucose 111 H (70-100) mg/dL Lactic Acid 0.9 (0.5-2.0) mmol/L Calcium 9.8 (8.6-10.3) mg/dL Total Bilirubin 0.90 (0.2-1.0) mg/dL AST 30 (13-39) U/L ALT 45 (7-52) U/L Alkaline Phosphatase 135 H (34-104) U/L Troponin I 0.00 (<0.04) ng/mL C-Reactive Protein 20.76 H (<8.01) mg/L Total Protein 7.6 (6.4-8.9) g/dL Albumin 4.3 (3.2-5.2) g/dL Globulin 3.3 (2-4) g/dL Albumin/Globulin Ratio 1.3 (1-3) Lipase 12 (11.0-82.0) U/L 11/20/18 Range/Units 16:39 WBC (3.5-10.8) 10^3/ul RBC (4.00-5.40) 10^6/ul Hgb (14.0-18.0) g/dl Hct (42-52) % MCV (80-94) fL MCH (27-31) pg MCHC (31-36) g/dl RDW (10.5-15) % Plt Count (150-450) 10^3/ul MPV (7.4-10.4) fL Neut % (Auto) % Lymph % (Auto) % [place] % (Auto) % Eos % (Auto) % Baso % (Auto) % Absolute Neuts (auto) (1.5-7.7) 10^3/ul Absolute Lymphs (auto) (1.0-4.8) 10^3/ul Absolute Monos (auto) (0-0.8) 10^3/ul Absolute Eos (auto) (0-0.6) 10^3/ul Absolute Basos (auto) (0-0.2) 10^3/ul Absolute Nucleated RBC 10^3/ul Nucleated RBC % APTT 38.4 H (26.0-36.3) seconds Sodium (135-145) mmol/L Potassium (3.5-5.0) mmol/L Chloride (101-111) mmol/L Carbon Dioxide (22-32) mmol/L Anion Gap (2-11) mmol/L BUN (6-24) mg/dL Creatinine (0.67-1.17) mg/dL Est GFR ( Amer) (>60) Est GFR (Non-Af Amer) (>60) BUN/Creatinine Ratio (8-20) Glucose (70-100) mg/dL Lactic Acid (0.5-2.0) mmol/L Calcium (8.6-10.3) mg/dL Total Bilirubin (0.2-1.0) mg/dL AST (13-39) U/L ALT (7-52) U/L Alkaline Phosphatase (34-104) U/L Troponin I (<0.04) ng/mL C-Reactive Protein (<8.01) mg/L Total Protein (6.4-8.9) g/dL Albumin (3.2-5.2) g/dL Globulin (2-4) g/dL Albumin/Globulin Ratio (1-3) Lipase (11.0-82.0) U/L Result Diagrams: 11/20/18 16:39 11/20/18 16:39 Lab Statement: Any lab studies that have been ordered have been reviewed, and results considered in the medical decision making process. - EKG 1800 Cardiac Rate: Tachycardia - rate of 121 bpm EKG Rhythm: Sinus Tachycardia ST Segment: Non-Specific Summary of EKG Findings: EKG showed sinus tachycardia with rate of 121 BPM, non- specific ST-T changes. Re-Evaluation - Re-Evaluation First Eval Re-Evaluation Time: 20:13 Comment: Results of labs and tests were discussed with patient. He will be discharged to home and follow up with PCP, he is agreeable with this. GIGU Course/Dx - Course Course Of Treatment: Patient is a 78 y/o M presenting to ED with complaints of N /V/D since 0600 this morning. He reports 4-5 episodes of vomiting, one episode of diarrhea. Patient denies fever and abdominal pain. He had spinal surgery 11/[address] Pierson. Patient was seen here for a blood clot in left leg, Dx a week ago today. Patient was started on metoprolol four days ago. Per triage note, patient "had dressing checked and changed tuesday. was sick with similar symptoms two weeks ago". On physical exam, patient is noted to be tachycardic. EKG showed sinus tachycardia with rate of 121 BPM, non-specific ST -T changes. Bloodwork was obtained. During ED course, patient received fluids and Zofran 4 mg IV. Results of labs and tests were discussed with patient. He will be discharged to home and follow up with PCP, he is agreeable with this. - Diagnoses Differential Diagnoses - Male: Dehydration, Diarrhea, Gastroenteritis (Viral), Vomiting Provider Diagnoses: Gastroenteritis Discharge - Sign-Out/Discharge Documenting (check all that apply): Patient Departure - discharge - Discharge Plan Condition: Stable Disposition: HOME Prescriptions: Ondansetron ODT TAB* [Zofran 4 MG Odt TAB*] 4 mg PO Q8H PRN #20 tab.odt MDD 3 PRN Reason: Vomiting Patient Education Materials: Gastroenteritis (ED) Referrals: Walter Avalos DO [Primary Care Provider] - 3 Days Additional Instructions: RETURN TO ED FOR ANY NEW OR WORSENING SYMPTOMS. FOLLOW UP WITH PRIMARY CARE PHYSICIAN WITHIN THREE DAYS. - Billing Disposition and Condition Condition: STABLE Disposition: Home - Attestation Statements Document Initiated by Scribe: Yes Documenting Scribe: ALICIA HENRIQUEZ Provider For Whom Scribe is Documenting (Include Credential): MD Tyree KRAMERe Attestation: I, ALICIA HNERIQUEZ , scribed for IDA RUBY MD on 11/20/18 at 2112. Scribe Documentation Reviewed: Yes Provider Attestation: The documentation as recorded by the scribeALICIA accurately reflects the service I personally performed and the decisions made by me, IDA RUBY MD Status of Scribe Document: Viewed
[2018-11-20 20:34] VITALS: BP 105/70
== END | disposition home or self-care (01) ==
LOC: ED 15:11
DX: K52.9 Noninfective gastroenteritis and colitis, unspecified (principal); R11.2 Nausea with vomiting, unspecified; R19.7 Diarrhea, unspecified; Z88.0 Allergy status to penicillin
CPT/HCPCS: 36415; 80053; 83605; 83690; 84484; 85025; 85730; 86140; 93005; 96361; 96374; 99283; A9270-GY; J2405

== ENCOUNTER 2019-10-19 16:43 | Emergency (ER) | payer MEDICARE ==
[2019-10-19 20:14] LABS: ABS Eosinophils 0.2 10^3/ul (0-0.6); ABS Lymphocytes 2.1 10^3/ul (1.0-4.8); ABS Monocytes 0.6 10^3/ul (0-0.8); ABS Neutrophils 2.7 10^3/ul (1.5-7.7); Eosinophil % 4.3 %; Hematocrit 41 % (42-52); Lymphocyte % 36.7 %; Mean Corpuscular HGB Conc 34 g/dL (31-36); Mean Corpuscular Hemoglobin 31 pg (27-31); Mean Corpuscular Volume 89 fL (80-94); Mean Platelet Volume 7.1 fL (7.4-10.4); Nucleated Red Blood Cells % 0.1; Platelet Count 283 10^3/uL (150-450); Red Blood Count 4.58 10^6 /uL (4.18-5.48); Red Cell Distribution Width 14 % (10-15); White Blood Count 5.6 10^3/uL (3.5-10.8)
[2019-10-19 20:28] LABS: Albumin 4.4 g/dL (3.2-5.2); Albumin/Globulin Ratio 1.8 (1-3); BUN/Creatinine Ratio 23.9 (8-20); Calcium 9.5 mg/dL (8.6-10.3); EGFR African American 96.5 (>60); EGFR Non-African American 79.8 (>60); Globulin 2.5 g/dL (2-4); Total Bilirubin 0.4 mg/dL (0.2-1.0); Total Protein 6.9 g/dL (6.4-8.9)
--- NOTE | 2019-10-19 21:40 | ED ---
GI/ HPI - HPI Summary HPI Summary: This pt is a 79 Y/O M presenting to [facility] with a CC of hematuria with clots that have been increasing in pain since the onset. He states that he has a Hx of hematuria and was seen by his PCP on 10/15/19 for a new Cipro prescription but has been unable to see his urologist and will be unable to see him until . He states that he has issues with urinating and has an inability to pass. He states that he has had an inability to urinate for the day and rates his pain a 3/10 in severity. He denies any fevers, chills, N/V, and headaches. He states that he has had issues with hematuria for the last 2 1/2 months. He states that he has no aggravating or alleviating factors. He has a PMHx of an enlarged prostate and chronic UTIs. - History of Current Complaint Chief Complaint: EDUrogenitalProblems Time Seen by Provider: 10/19/19 21:23 Stated Complaint: UNABLE TO URINATE/PASSING BLOOD PER PT Hx Obtained From: Patient Onset/Duration: Still Present - states he has had symptoms for 2 1/2 months Timing: Constant Current Severity: Mild Pain Intensity: 3 Location of Pain: Other - states pain while he urinates or is unable to urinate Associated Signs and Symptoms: Positive: Hematuria, Dysuria, Other: - inability to void. Negative: Nausea, Vomiting, Fever, Chills Aggravating Factor(s): Nothing Alleviating Factor(s): Nothing - Allergy/Home Medications Allergies/Adverse Reactions: Allergies Allergy/AdvReac Type Severity Reaction Status Date / Time fexofenadine [From Makenzie] Allergy Altered Verified 10/19/19 16:56 Mental Status Penicillins Allergy Hives Verified 10/19/19 16:56 Home Medications: Home Medications Diltiazem CD CAP* [Cardizem CD CAP*] 240 mg PO DAILY 10/19/19 [History Confirmed 10/19/19] Fenofibrate(NF) [Tricor(NF)] 145 mg PO DAILY 10/19/19 [History Confirmed ] Finasteride TAB* [Proscar TAB*] 5 mg PO DAILY 10/19/19 [History Confirmed ] Losartan TAB* [Cozaar TAB*] 100 mg PO DAILY 10/19/19 [History Confirmed 10/19/19 ] Ranitidine TAB (NF) [Zantac TAB (NF)] 300 mg PO BEDTIME 10/19/19 [History Confirmed 10/19/19] PMH/Surg Hx/FS Hx/Imm Hx Previously Healthy: Yes Endocrine/Hematology History: Denies: Hx Diabetes Cardiovascular History: Reports: Hx Hypercholesterolemia, Hx Hypertension Denies: Hx Atrial Fibrillation, Hx Pacemaker/ICD Respiratory History: Reports: Hx Asthma, Hx Chronic Obstructive Pulmonary Disease (COPD) History: Reports: Other Problems/Disorders - states Hx of UTIs Musculoskeletal History: Reports: Other Musculoskeletal History - bilateral lower leg weakness Sensory History: Reports: Hx Contacts or Glasses, Hx Hearing Aid - REMOVED Opthamlomology History: Reports: Hx Contacts or Glasses Psychiatric History: Denies: Hx Panic Disorder - Cancer History Hx Chemotherapy: No Hx Radiation Therapy: No - Surgical History Surgical History: Yes Surgery Procedure, Year, and Place: RIGHT SHOULDER- 06/08/13, CSP W/RODS AND SCREWS 11/11 - Immunization History Immunizations Up to Date: Yes Infectious Disease History: No Infectious Disease History: Denies: Traveled Outside the [place] in Last 30 Days - Family History Known Family History: Negative: Cardiac Disease, Diabetes - Social History Occupation: Retired Lives: Alone Alcohol Use: Occasionally Hx Substance Use: No Substance Use Type: Reports: None Hx Tobacco Use: No Smoking Status (MU): Never Smoked Tobacco Review of Systems Negative: Fever, Chills Negative: Vomiting, Nausea Positive: dysuria, hematuria, other - inability to void Negative: Headache All Other Systems Reviewed And Are Negative: Yes Physical Exam - Summary Physical Exam Summary: Appearance: Well-appearing, Well-nourished, lying in bed comfortably Skin: Warm, dry, no obvious rash Eyes: sclera anicteric, no conjunctival pallor ENT: mucous membranes moist, pharynx appears normal Neck: Supple, nontender Respiratory: Clear to auscultation, no signs of respiratory distress Cardiovascular: Normal S1, S2. No murmurs. Normal distal pulses in tibial and radial bilaterally. Abdomen: Soft, nontender, normal active bowel sounds present Musculoskeletal: Normal, Strength/ROM Intact Neurological: A&Ox3, awake and alert, mentation is normal, speech is fluent and appropriate Psychiatric: affect is normal, does not appear anxious or depressed Triage Information Reviewed: Yes Vital Signs On Initial Exam: Initial Vitals Temp Pulse Resp BP Pulse Ox 99.0 F 63 15 143/87 96 10/19/19 16:54 10/19/19 16:54 10/19/19 16:54 10/19/19 16:54 10/19/19 16:54 Vital Signs Reviewed: Yes Procedures - Sedation Patient Received Moderate/Deep Sedation with Procedure: No Diagnostics - Vital Signs Vital Signs Temp Pulse Resp BP Pulse Ox 10/19/19 20:00 98.3 F 59 16 148/76 96 10/19/19 16:54 99.0 F 63 15 143/87 96 - Laboratory Lab Results: Lab Results 10/19/19 10/19/19 10/19/19 Range/Units 19:54 19:54 19:54 WBC 5.6 (3.5-10.8) 10^3/uL RBC 4.58 (4.18-5.48) 10^6 /uL Hgb 14.0 (14.0-18.0) g/dL Hct 41 L (42-52) % MCV 89 (80-94) fL MCH 31 (27-31) pg MCHC 34 (31-36) g/dL RDW 14 (10-15) % Plt Count 283 (150-450) 10^3/uL MPV 7.1 L (7.4-10.4) fL Neut % (Auto) 47.5 % Lymph % (Auto) 36.7 % [place] % (Auto) 10.9 % Eos % (Auto) 4.3 % Baso % (Auto) 0.6 % Absolute Neuts (auto) 2.7 (1.5-7.7) 10^3/ul Absolute Lymphs (auto) 2.1 (1.0-4.8) 10^3/ul Absolute Monos (auto) 0.6 (0-0.8) 10^3/ul Absolute Eos (auto) 0.2 (0-0.6) 10^3/ul Absolute Basos (auto) 0.0 (0-0.2) 10^3/ul Absolute Nucleated RBC 0.0 10^3/ul Nucleated RBC % 0.1 Sodium 138 (135-145) mmol/L Potassium 4.0 (3.5-5.0) mmol/L Chloride 108 (101-111) mmol/L Carbon Dioxide 25 (22-32) mmol/L Anion Gap 5 (2-11) mmol/L BUN 22 (6-24) mg/dL Creatinine 0.92 (0.67-1.17) mg/dL Est GFR ( Amer) 96.5 (>60) Est GFR (Non-Af Amer) 79.8 (>60) BUN/Creatinine Ratio 23.9 H (8-20) Glucose 90 (70-100) mg/dL Lactic Acid 1.1 (0.5-2.0) mmol/L Calcium 9.5 (8.6-10.3) mg/dL Total Bilirubin 0.40 (0.2-1.0) mg/dL AST 17 (13-39) U/L ALT 16 (7-52) U/L Alkaline Phosphatase 55 (34-104) U/L Total Protein 6.9 (6.4-8.9) g/dL Albumin 4.4 (3.2-5.2) g/dL Globulin 2.5 (2-4) g/dL Albumin/Globulin Ratio 1.8 (1-3) Result Diagrams: 10/19/19 19:54 10/19/19 19:54 Lab Statement: Any lab studies that have been ordered have been reviewed, and results considered in the medical decision making process. Re-Evaluation - Re-Evaluation First Eval Re-Evaluation Time: 21:50 Change: Unchanged Comment: Pt was unable to urinate freely and had excessive pain with urination. He is agreeable to a catheter. GIGU Course/Dx - Course Course Of Treatment: This pt is a 79 Y/O M presenting to [facility] with a CC of hematuria with clots that have been increasing in pain since the onset. He states that he has a Hx of hematuria and was seen by his PCP on 10/15/19 for a new Cipro prescription but has been unable to see his urologist and will be unable to see him until 11/07. He states that he has issues with urinating and has an inability to pass. Denies any fevers, chills, N/V, and headaches. He has a PMHx of an enlarged prostate. His PE had no abnormal findings. 2149 the pt was unable to urinate freely and had excessive pain with urination. He is agreeable to a catheter. He received Keflex during his ED course. He will be discharged home with a Dx of hematuria and urinary retention. He was given a catheter. - Diagnoses Provider Diagnoses: Hematuria, Dysuria, Alexander catheter in place Discharge ED - Sign-Out/Discharge Documenting (check all that apply): Patient Departure - discharge - Discharge Plan Condition: Good Disposition: HOME Prescriptions: Cephalexin CAP* [Keflex CAP*] 500 mg PO QID #28 cap Patient Education Materials: Urinary Retention in Men (ED), Alexander Catheter Placement and Care (ED), Hematuria (ED) Referrals: Toi Souza MD [Medical Doctor] - As Soon As Possible - Billing Disposition and Condition Condition: GOOD Disposition: Home - Attestation Statements Document Initiated by Christi: Yes Documenting Scribe: Fer Hurst Provider For Whom Christi is Documenting (Include Credential): Elias Morris MD Scribe Attestation: Fer Landeros, scribed for Elias Morris MD on 10/20/19 at 1845. Scribe Documentation Reviewed: Yes Provider Attestation: The documentation as recorded by the Fer hernandez accurately reflects the service I personally performed and the decisions made by , Elias Morris MD Status of Scribe Document: Viewed
[2019-10-19 22:01] LABS: Urine Appearance Turbid; Urine Bilirubin Negative (Negative); Urine Blood 2+ (Negative); Urine Glucose Negative (Negative); Urine Ketones Negative (Negative); Urine Nitrite Negative (Negative); Urine Protein 2+(100 mg/dL) (Negative); Urine Specific Gravity 1.017 (1.010-1.030); Urine Urobilinogen Negative (Negative)
[2019-10-19 22:08] LABS: Urine Bacteria Absent (Absent); Urine Red Blood Cell 3+(>10/hpf) (Absent); Urine White Blood Cell 3+(>20/hpf) (Absent)
[2019-10-19 22:09] LABS: Urine Color Red
[2019-10-19] MEDS ORDERED: Cephalexin CAP* 500 MG PO ONE (23:32)
[2019-10-20 00:20] VITALS: BP 134/83
== END 2019-10-20 00:19 | disposition home or self-care (01) ==
LOC: ED 16:43
DX: R31.9 Hematuria, unspecified (principal); R30.0 Dysuria; Z46.6 Encounter for fitting and adjustment of urinary device; E78.00 Pure hypercholesterolemia, unspecified; I10 Essential (primary) hypertension; J44.9 Chronic obstructive pulmonary disease, unspecified; Z79.899 Other long term (current) drug therapy; Z88.0 Allergy status to penicillin; Z88.8 Allergy status to other drugs, medicaments and biological substances
CPT/HCPCS: 36415; 80053; 81003; 81015; 83605; 85025; 87086; 99283; A9270-GY

== ENCOUNTER 2019-10-22 23:32 | Emergency (ER) | payer MEDICARE ==
--- NOTE | 2019-10-23 00:16 | ED ---
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 The patient made a short trip in and out of the grocery store that he estimates to be ~100yards and was out of breath, which he notes is not normal. At about 2200 on 10/22/19, he notes both legs feeling "hard," which he suspects was due to fluid buildup. Since then this symptom has resolved. The patient has had a catheter since 10/19 and notes that it has leaked. Denies PND, orthopnea, hx CHF, DVT, recent echo showing EF 55%. He has also had trouble urinating and notes no CP. Patient notes that he when he was on a diuretic he got dehydrated easily, as well as a Hx of COPD, HTN, eczema, neck surgery, and afib for which he is on Xarelto. He notes no Hx of heart failure. 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 Onset/Duration: Lasting Hours, Still Present Current Severity: None Pain Intensity: 0 Character: Dyspnea on Exertion - 100yd walk Aggravating Factor(s): Exertion Alleviating Factor(s): Rest Associated Signs and Symptoms: SOB, Edema - bilat, Dyspnea - on exertion - Allergy/Home Medications Allergies/Adverse Reactions: Allergies Allergy/AdvReac Type Severity Reaction Status Date / Time fexofenadine [From Makenzie] Allergy Altered Verified 10/22/19 23:41 Mental Status Penicillins Allergy Hives Verified 10/22/19 23:41 Home Medications: Home Medications Clarispray 1 nasal.spr ALT NARE DAILY PRN 10/23/19 [History Confirmed 10/23/19] Glucosamine Sulfate Dipot Chlr [Gnp Glucosamine Maximum S] 500 mg PO BID [History Confirmed 10/23/19] Magnesium Oxide TAB* [MagOx 400 TAB*] 400 mg PO 1200 10/23/19 [History Confirmed 10/23/19] Triamcinolone 0.1% CREAM (NF) [Kenalog 0.1% Cream (NF)] 1 applic TOPICAL BID PRN 10/23/19 [History Confirmed 10/23/19] PMH/Surg Hx/FS Hx/Imm Hx Endocrine/Hematology History: Denies: Hx Diabetes Cardiovascular History: Reports: Hx Hypercholesterolemia, Hx Hypertension Denies: Hx Atrial Fibrillation, Hx Pacemaker/ICD Respiratory History: Reports: Hx Asthma, Hx Chronic Obstructive Pulmonary Disease (COPD) History: Reports: Other Problems/Disorders - states Hx of UTIs Musculoskeletal History: Reports: Other Musculoskeletal History - bilateral lower leg weakness Sensory History: Reports: Hx Contacts or Glasses, Hx Hearing Aid - REMOVED Opthamlomology History: Reports: Hx Contacts or Glasses Psychiatric History: Denies: Hx Panic Disorder - Cancer History Hx Chemotherapy: No Hx Radiation Therapy: No - Surgical History Surgery Procedure, Year, and Place: RIGHT SHOULDER- 06/08/13, CSP W/RODS AND SCREWS 11/11 Infectious Disease History: No Infectious Disease History: Denies: Traveled Outside the [place] in Last 30 Days - Family History Known Family History: Negative: Cardiac Disease, Diabetes - Social History Alcohol Use: Occasionally Hx Substance Use: No Substance Use Type: Reports: None Hx Tobacco Use: No Smoking Status (MU): Never Smoked Tobacco Review of Systems Negative: Chest Pain Positive: Shortness Of Breath - on exertion Positive: other - trouble urinating Positive: Edema - bilat All Other Systems Reviewed And Are Negative: Yes Physical Exam - Summary Physical Exam Summary: Constitutional: Well-developed, Well-nourished, Alert. (-) Distressed Skin: Warm, Dry HENT: Normocephalic; Atraumatic Eyes: Conjunctiva normal Neck: Musculoskeletal ROM normal neck. (-) JVD, (-) Stridor, (-) Nuchal rigidity Cardio: Rhythm regular, rate normal, Heart sounds normal; Intact distal pulses; Radial pulses are 2+ and symmetric. (-) Murmur Pulmonary/Chest wall: Effort normal. (-) Respiratory distress, (-) Wheezes, (-) Rales Abd: Soft, (-) tenderness, (-) Distension, (-) Guarding, (-) Rebound, adrian draining blood-tinged urine Musculoskeletal: (-) Edema, 2+ DP Lymph: (-) Cervical adenopathy Neuro: Alert, Oriented x3 Psych: Mood and affect Normal Triage Information Reviewed: Yes Vital Signs On Initial Exam: Initial Vitals Temp Pulse Resp BP Pulse Ox 98.5 F 72 20 157/84 95 10/22/19 23:40 10/22/19 23:40 10/22/19 23:40 10/22/19 23:40 10/22/19 23:40 Vital Signs Reviewed: Yes Procedures - Sedation Patient Received Moderate/Deep Sedation with Procedure: No Diagnostics - Vital Signs Vital Signs Temp Pulse Resp BP Pulse Ox 10/22/19 23:40 98.5 F 72 20 157/84 95 - Laboratory Result Diagrams: 10/23/19 00:12 10/23/19 00:12 Lab Statement: Any lab studies that have been ordered have been reviewed, and results considered in the medical decision making process. - Radiology CXR Radiology Interpretation Completed By: ED Physician Summary of Radiographic Findings: No acute process. This imaging study was reviewed and interpreted by the ED physician pending official read. - EKG 0015 Cardiac Rate: NL - 65 bpm EKG Rhythm: Sinus Rhythm Summary of EKG Findings: An EKG at 0015 reveals normal sinus rhythm at 65bpm, nml axis, nml intervals. No STEMI. No acute changes. T-wave inversions in V1. This EKG was reviewed and interpreted by the ED physician. Re-Evaluation - Re-Evaluation First Eval Re-Evaluation Time: 02:05 Change: Improved - labs notable for normal trop, BNP, d dimer. Patient denies repeated episodes of SOB. Will ambulate Disposition - Course Course Of Treatment: 79-year-old male with a history of A. fib on Xarelto, COPD , hypertension, history of cervical stenosis , GERD, p/w SOB. Echo in October - EF 55-60%. Shortness of breath ddx: Also consider: COPD exacerbation/ asthma - no h/o COPD, no wheezing on exam. Low suspicion. PNA - no sputum production, no fevers or chills. No leukocytosis. CXR w/o infiltrate. Low suspicion. PTX - breath sounds equal, no risk factors for PTX, CXR w/o e/o PTX. ACS - no CP, no EKG changes, initial trop not elevated. Low suspicion. CHF - no h/o CHF, BNP normal no appreciable BLE edema, CXR w/o pulmonary edema. PE - d dimer normal. Ambulated in the ED with sat 94%. No difficulty breathing. Denies dyspnea on exertion or episodes of shortness of breath aside from that 1 episode today. No chest pain. Lower suspicion for cardiac event. Discussed with patient obs vs going home, he states he feels well enough to go home - Diagnoses Provider Diagnoses: Shortness of breath Discharge ED - Sign-Out/Discharge Documenting (check all that apply): Patient Departure - dc - Discharge Plan Condition: Stable Disposition: HOME Patient Education Materials: Shortness of Breath (ED) Referrals: Walter Avalos, [Primary Care Provider] - Additional Instructions: You were seen in the emergency department for an episode of shortness of breath. Your labs didn't show evidence of heart attack. Your chest x-ray did not show any pneumonia. If any studies were not completed at the time of discharge you will be called with the relevant results. Please follow up with your primary care doctor in next 2-3 days and return to emergency department for trouble breathing, chest pain, worsening or concerning symptoms. It was a pleasure taking care of you today. - Billing Disposition and Condition Condition: STABLE Disposition: Home - Attestation Statements Document Initiated by Christi: Yes Documenting Scribe: Yulissa Dunlap Provider For Whom Christi is Documenting (Include Credential): Dr. Espinoza Justice MD Scribe Attestation: I, Yulissa Dunlap, scribed for Dr. Espinoza Justice MD on 10/23/19 at 0302. Scribe Documentation Reviewed: Yes Provider Attestation: The documentation as recorded by the Yulissa hernandez accurately reflects the service I personally performed and the decisions made by me, Dr. Espinoza Justice MD Status of Scribe Document: Viewed
[2019-10-23 00:19] LABS: ABS Eosinophils 0.3 10^3/ul (0-0.6); ABS Lymphocytes 1.9 10^3/ul (1.0-4.8); ABS Monocytes 0.7 10^3/ul (0-0.8); ABS Neutrophils 4.3 10^3/ul (1.5-7.7); Hematocrit 40 % (42-52); Hemoglobin 13.2 g/dL (14.0-18.0); Lymphocyte % 26.6 %; Mean Corpuscular HGB Conc 34 g/dL (31-36); Mean Corpuscular Hemoglobin 30 pg (27-31); Mean Corpuscular Volume 90 fL (80-94); Nucleated Red Blood Cells % 0.1; Platelet Count 284 10^3/uL (150-450); Red Blood Count 4.37 10^6 /uL (4.18-5.48); Red Cell Distribution Width 14 % (10-15); White Blood Count 7.2 10^3/uL (3.5-10.8)
[2019-10-23 00:38] LABS: Albumin 4.2 g/dL (3.2-5.2); Albumin/Globulin Ratio 1.7 (1-3); BUN/Creatinine Ratio 27.1 (8-20); Calcium 9.3 mg/dL (8.6-10.3); EGFR African American 72.4 (>60); EGFR Non-African American 59.9 (>60); Globulin 2.5 g/dL (2-4); Potassium 3.9 mmol/L (3.5-5.0); Total Bilirubin 0.3 mg/dL (0.2-1.0); Total Protein 6.7 g/dL (6.4-8.9)
[2019-10-23] MEDS ORDERED: NS 0.9% 500 ML* 500 ML IV SCH (02:00)
[2019-10-23 02:40] VITALS: BP 141/77
== END 2019-10-23 02:39 | disposition home or self-care (01) ==
LOC: ED 23:32
DX: R06.02 Shortness of breath (principal); J44.9 Chronic obstructive pulmonary disease, unspecified; I10 Essential (primary) hypertension; I48.91 Unspecified atrial fibrillation; E78.00 Pure hypercholesterolemia, unspecified; K21.9 Gastro-esophageal reflux disease without esophagitis; Z79.01 Long term (current) use of anticoagulants; Z79.899 Other long term (current) drug therapy; Z88.0 Allergy status to penicillin; Z88.8 Allergy status to other drugs, medicaments and biological substances
CPT/HCPCS: 36415; 71046; 80053; 83880; 84484; 85025; 85379; 93005; 99283

== ENCOUNTER 2019-10-30 14:16 | Emergency (ER) | payer MEDICARE ==
--- NOTE | 2019-10-30 14:58 | ED ---
GI/ HPI - HPI Summary HPI Summary: The patient is a 79 y/o M presenting to [facility] accompanied by with a chief complaint of improper draining of his adrian catheter beginning at 1130 today. He reports that he had a the adrian catheter placed about a week ago because he wanted to go on a trip to [place] but has a history of enlarged prostate but had urinary retention. He ended up not going on the trip, and he was supposed to follow up with Dr. Souza between yesterday and today, but there were complications with scheduling. He is experienced difficulty with the catheter as the urine appears to be draining around the placement, and he has observed hematuria in the catheter. He denies any fevers, chills, nausea, vomiting, or abdominal pain. PMHx: HTN, HLD, asthma, COPD. Nonsmoker, occasional EtOH, no substance use. Medications reviewed. Allergies noted. - History of Current Complaint Chief Complaint: EDUrogenitalProblems Time Seen by Provider: 10/30/19 14:39 Stated Complaint: CATH ISSUE PER PT Hx Obtained From: Patient Onset/Duration: Started Hours Ago - 1130, Still Present Current Severity: Mild Pain Intensity: 0 Associated Signs and Symptoms: Positive: Hematuria, Other: - obstructed adrian. Negative: Nausea, Vomiting, Abdominal Pain Aggravating Factor(s): Nothing Alleviating Factor(s): Nothing - Allergy/Home Medications Allergies/Adverse Reactions: Allergies Allergy/AdvReac Type Severity Reaction Status Date / Time fexofenadine [From Makenzie] Allergy Altered Verified 10/30/19 14:20 Mental Status Penicillins Allergy Hives Verified 10/30/19 14:20 PMH/Surg Hx/FS Hx/Imm Hx Endocrine/Hematology History: Denies: Hx Diabetes Cardiovascular History: Reports: Hx Hypercholesterolemia, Hx Hypertension Denies: Hx Atrial Fibrillation, Hx Pacemaker/ICD Respiratory History: Reports: Hx Asthma, Hx Chronic Obstructive Pulmonary Disease (COPD) History: Reports: Other Problems/Disorders - states Hx of UTIs, enlarged prostate Musculoskeletal History: Reports: Other Musculoskeletal History - bilateral lower leg weakness Sensory History: Reports: Hx Contacts or Glasses, Hx Hearing Aid - REMOVED Opthamlomology History: Reports: Hx Contacts or Glasses Psychiatric History: Denies: Hx Panic Disorder - Cancer History Hx Chemotherapy: No Hx Radiation Therapy: No - Surgical History Surgical History: Yes Surgery Procedure, Year, and Place: RIGHT SHOULDER- 06/08/13, CSP W/RODS AND SCREWS 11/11 Infectious Disease History: No Infectious Disease History: Denies: Traveled Outside the [place] in Last 30 Days - Family History Known Family History: Negative: Cardiac Disease, Diabetes - Social History Alcohol Use: Occasionally Hx Substance Use: No Substance Use Type: Reports: None Hx Tobacco Use: No Smoking Status (MU): Never Smoked Tobacco Review of Systems Negative: Fever, Chills Negative: Abdominal Pain, Vomiting, Nausea Positive: hematuria, other - obstructed adrian catheter All Other Systems Reviewed And Are Negative: Yes Physical Exam - Summary Physical Exam Summary: Constitutional: Well-developed, Well-nourished, Alert. (-) Distressed Skin: Warm, Dry HENT: Normocephalic; Atraumatic Eyes: Conjunctiva normal Neck: Musculoskeletal ROM normal neck. (-) JVD, (-) Stridor, (-) Tracheal deviation Cardio: Rhythm regular, rate normal, Heart sounds normal; Intact distal pulses; Radial pulses are 2+ and symmetric. (-) Murmur Pulmonary/Chest wall: Effort normal. (-) Respiratory distress, (-) Wheezes, (-) Rales Abd: Soft, (-) tenderness, (-) Distension, (-) Guarding, (-) Rebound Adrian: Bloody urine in leg bag Musculoskeletal: (-) Edema Lymph: (-) Cervical adenopathy Neuro: Alert, Oriented x3 Psych: Mood and affect Normal Triage Information Reviewed: Yes Vital Signs On Initial Exam: Initial Vitals Temp Pulse Resp BP Pulse Ox 99.2 F 76 14 121/89 96 10/30/19 14:18 10/30/19 14:18 10/30/19 14:18 10/30/19 14:18 10/30/19 14:18 Vital Signs Reviewed: Yes Procedures - Sedation Patient Received Moderate/Deep Sedation with Procedure: No Diagnostics - Vital Signs Vital Signs Temp Pulse Resp BP Pulse Ox 10/30/19 14:18 99.2 F 76 14 121/89 96 - Laboratory Lab Statement: Any lab studies that have been ordered have been reviewed, and results considered in the medical decision making process. Re-Evaluation - Re-Evaluation First Eval Re-Evaluation Time: 15:40 Comment: Adrian unclogged. Urine is draining clear, effluent. GIGU Course/Dx - Course Course Of Treatment: Patient is here with a clogged Adrian catheter. Patient had his Adrian placed 1 week ago. Patient is being worked up for hematuria which she's had for roughly 3 months. Patient had bloody urine in his Adrian catheter bag. Patient already has a 3 way Adrian placed so patient's Adrian was irrigated until the effluent was clear. Patient has no other symptoms outside of a clogged Adrian. Patient was encouraged to call Dr. Souza to set up an appointment. - Diagnoses Provider Diagnoses: Complication of Adrian catheter, Hematuria Discharge ED - Sign-Out/Discharge Documenting (check all that apply): Patient Departure - Patient will be discharged home. - Discharge Plan Condition: Stable Disposition: HOME Patient Education Materials: Adrian Catheter Placement and Care (ED) Referrals: Walter Avalos DO [Primary Care Provider] - Toi Souza MD [Medical Doctor] - 3 Days Additional Instructions: Follow up with Dr. Suoza in 1-3 days. Return if you have fever, chills, abdominal pain, pain on sides, or your catheter stops working. - Billing Disposition and Condition Condition: STABLE Disposition: Home - Attestation Statements Document Initiated by Christi: Yes Documenting Scribe: Yulissa Dunlap Provider For Whom Christi is Documenting (Include Credential): Dr. Willi Ba MD Scribe Attestation: Yulissa Landeros scribed for Dr. Willi Ba MD on 10/30/19 at 2116. Scribe Documentation Reviewed: Yes Provider Attestation: The documentation as recorded by the Yulissa hernandez accurately reflects the service I personally performed and the decisions made by me, Dr. Willi Ba MD Status of Scribsameer Document: Viewed
[2019-10-30 16:29] VITALS: BP 137/76
== END 2019-10-30 16:28 | disposition home or self-care (01) ==
LOC: ED 14:16
DX: T83.098A Other mechanical complication of other urinary catheter, initial encounter (principal); R31.9 Hematuria, unspecified; E78.00 Pure hypercholesterolemia, unspecified; I10 Essential (primary) hypertension; J44.9 Chronic obstructive pulmonary disease, unspecified
CPT/HCPCS: 99282

== ENCOUNTER 2021-05-01 01:10 | Observation (INO) ==
[2021-05-01] MEDS ORDERED: Ondansetron 4 mg VIAL 2 MG/ML 2 ml VIAL IV ONE ×2 (02:15→08:20)
[2021-05-01] MEDS ORDERED: NS 0.9% 1000 ml BAG 1,000 ML IV ONE (02:15)
[2021-05-01 03:43] LABS: ABS Eosinophils 0.1 10^3/ul (0-0.6); ABS Lymphocytes 1.1 10^3/ul (1.0-4.8); ABS Monocytes 0.7 10^3/ul (0-0.8); ABS Neutrophils 4.5 10^3/ul (1.5-7.7); Eosinophil % 1.6 %; Hematocrit 45 % (42-52); Hemoglobin 15.2 g/dL (14.0-18.0); Lymphocyte % 16.8 %; Mean Corpuscular HGB Conc 34 g/dL (31-36); Mean Corpuscular Hemoglobin 31 pg (27-31); Mean Corpuscular Volume 93 fL (80-94); Mean Platelet Volume 7.3 fL (7.4-10.4); Platelet Count 252 10^3/uL (150-450); Red Blood Count 4.83 10^6 /uL (4.18-5.48); Red Cell Distribution Width 14 % (10-15); White Blood Count 6.4 10^3/uL (3.5-10.8)
[2021-05-01 03:53] LABS: Albumin 4.1 g/dL (3.2-5.2); Albumin/Globulin Ratio 1.6 (1-3); C Reactive Protein 2.55 mg/L (<8.01); Calcium 9.2 mg/dL (8.6-10.3); EGFR African American 103.8 (>60); EGFR Non-African American 85.8 (>60); Globulin 2.5 g/dL (2-4); Potassium 4.2 mmol/L (3.5-5.0); Total Bilirubin 0.6 mg/dL (0.2-1.0); Total Protein 6.6 g/dL (6.4-8.9)
[2021-05-01] MEDS ORDERED: Morphine 4 MG/ML VIAL (1 ml) IV ONE (03:54)
[2021-05-01] MEDS ORDERED: fentaNYL 100 mcg/2 ml 50 MCG/ML VIAL ONE ×3 (04:29→16:33)
[2021-05-01] MEDS: fentaNYL 100 mcg/2 ml 50 MCG/ML VIAL IV SLOW PU PRN ×3 (04:34→09:33)
[2021-05-01] MEDS ORDERED: Lactated Ringers 1000 ml BAG 1,000 ML IV SCH (05:00)
[2021-05-01 05:34] LABS: Urine Appearance Cloudy; Urine Bilirubin Negative (Negative); Urine Blood 3+ (Negative); Urine Color Yellow; Urine Glucose Negative (Negative); Urine Ketones Negative (Negative); Urine Nitrite Negative (Negative); Urine Protein 1+(30 mg/dL) (Negative); Urine Specific Gravity 1.013 (1.002-1.030); Urine Urobilinogen Negative (Negative)
[2021-05-01 05:35] LABS: Urine Bacteria Absent (Absent); Urine Red Blood Cell 3+(>10/hpf) (Absent); Urine Squamous Epithelial Cell Present (Absent); Urine White Blood Cell 3+(>20/hpf) (Absent); Urine Yeast Present (Absent)
[2021-05-01] MEDS ORDERED: fentaNYL 100 mcg/2 ml 50 MCG/ML VIAL IV SLOW PU PRN (06:14)
[2021-05-01] MEDS ORDERED: Ondansetron 4 mg VIAL 2 MG/ML 2 ml VIAL IV PRN (09:42)
[2021-05-01] MEDS: NS 0.9% 1000 ml BAG 1,000 ML IV SCH ×2 (12:18→19:47)
[2021-05-01] MEDS ORDERED: fentaNYL 100 mcg/2 ml 50 MCG/ML VIAL IV SLOW PU ONE (16:01)
[2021-05-01] MEDS ORDERED: Iohexol 180 (CONTRAST) 20 ML SDV IV ONE (16:22)
[2021-05-01] MEDS ORDERED: Propofol 10 MG/ML 20 ML BTL ONE (16:32)
[2021-05-01] MEDS ORDERED: Lidocaine 2% PF 5 ML VIAL ONE (16:32)
[2021-05-01] MEDS ORDERED: Dexamethasone IV 4 MG/ML VIAL 1 ml VIAL ONE (16:32)
[2021-05-01] MEDS ORDERED: Ondansetron 4 mg VIAL 2 MG/ML 2 ml VIAL ONE (16:32)
[2021-05-01] MEDS ORDERED: cefTRIAXone 2 GM ADDV.VIAL ONE (17:03)
[2021-05-01] MEDS ORDERED: EPHEDrine (Pressors) 50 MG/ML VIAL ONE (17:25)
[2021-05-01] MEDS ORDERED: Naloxone 0.4 mg VIAL 0.4 mg/ml 1 ml VIAL IV PRN (18:04)
[2021-05-01] MEDS ORDERED: fentaNYL 100 mcg/2 ml 50 MCG/ML VIAL IV PRN (18:04)
[2021-05-01] MEDS ORDERED: diPHENhydraMINE IV 50 MG/ML 1 ml VIAL (BENADRYL) IV PRN (18:04)
[2021-05-01] MEDS ORDERED: DiMENhydriNATE IV 50 mg/ml 1 ml VIAL IV PUSH PRN (18:04)
[2021-05-02 06:26] LABS: ABS Lymphocytes 0.6 10^3/ul (1.0-4.8); ABS Monocytes 0.5 10^3/ul (0-0.8); ABS Neutrophils 10.1 10^3/ul (1.5-7.7); Hematocrit 39 % (42-52); Hemoglobin 13.2 g/dL (14.0-18.0); Lymphocyte % 5.4 %; Mean Corpuscular HGB Conc 34 g/dL (31-36); Mean Corpuscular Hemoglobin 32 pg (27-31); Mean Corpuscular Volume 93 fL (80-94); Mean Platelet Volume 7.8 fL (7.4-10.4); Platelet Count 209 10^3/uL (150-450); Red Blood Count 4.18 10^6 /uL (4.18-5.48); Red Cell Distribution Width 14 % (10-15); White Blood Count 11.2 10^3/uL (3.5-10.8)
[2021-05-02] MEDS: NS 0.9% 1000 ml BAG 1,000 ML IV SCH (06:28)
[2021-05-02 06:54] LABS: Calcium 8.5 mg/dL (8.6-10.3); EGFR Non-African American 79.4 (>60); Potassium 4.3 mmol/L (3.5-5.0)
[2021-05-02 12:55] VITALS: BP 109/53
== END 2021-05-02 16:30 | disposition home or self-care (01) ==
LOC: MED 01:10 → ED 01:10 → MED 12:10
PROVIDERS: ADMIT Internal Medicine; ATTEND Internal Medicine